=== PATIENT | male | born 1930 | race African-American/Black ===

== ENCOUNTER 2016-07-15 10:26 | Emergency (ER) | payer MEDICARE ==
[~2016-07-15] VITALS: Ht 182.9 cm; Wt 72.6 kg
[~2016-07-15 10:26] MED LIST: AMLODIPINE BESYL5 MG ORAL; ASPIR 8181 MG ORAL; BENAZEPRIL HCL10 MG ORAL; CEPHALEXIN500 MG ORAL; SIMVASTATIN40 MG ORAL; TIMOPTIC 0.5%1 DRO1 BOTH EYES; TRUSOPT10 ML BOTH EYES; VICODIN 5-5001 EACH PO; [UNRECOGNIZED DRUG - OTHER] BOTH EYES
[2016-07-15] MEDS ORDERED: Acetaminophen 500mg (ES) tab PO ONE (11:15)
[2016-07-15 11:29] VITALS: BP 165/75
[2016-07-15 12:06] VITALS: BP 166/61
[2016-07-15] MEDS ORDERED: TYLENOL EXTRA500 MG ORAL (12:45)
[2016-07-15 12:50] VITALS: BP 166/61
--- NOTE | 2016-07-15 14:49 | Diagnostic Imaging Report ---
Indications:PAIN right elbow Technique: Three or 4 views of the right elbow Comparison: None Findings:There is a small olecranon spur. No acute fractures. No dislocations. No joint effusion. Impression:Negative
--- NOTE | 2016-07-15 14:55 | Emergency Room Report ---
History of Present Illness General Chief Complaint: Upper Extremity Injury Source: Patient Present Illness HPI 86-year-old male presents ED complaining of right elbow pain. States prior to one week ago he lifted some heavy furniture has felt pain in his arm since. Denies trauma to the elbow. Pain is throbbing, 5/10, worse with couple flexion. Nonradiating. No other aggravating or relieving factors. Denies any other injuries. Denies any other associated symptom Allergies: Coded Allergies: No Known Allergies (Unverified , 01/10/13) Patient History Past Medical History: HTN Past Surgical History: none Pertinent Family History: none Social History: Denies: alcohol use, drug use, smoking Immunizations: UTD Reviewed Nursing Documentation: PMH: Agreed, PSxH: Agreed Nursing Documentation-PMH Hx Cardiac Problems: Yes - Hyperlipidemia Hx Hypertension: Yes Hx Cancer: No Hx Gastrointestinal Problems: No Hx Neurological Problems: No Review of Systems All Other Systems: negative except mentioned in HPI Physical Exam Vital Signs Date Time Temp Pulse Resp B/P Pulse Ox O2 Delivery O2 Flow Rate FiO2 07/15/16 10:36 98.1 51 16 193/80 100 Room Air Sp02 EP Interpretation: reviewed, normal General Appearance: no apparent distress, alert, GCS 15, non-toxic Head: normocephalic Eyes: bilateral eye PERRL, bilateral eye normal inspection ENT: normal ENT inspection Neck: normal inspection Respiratory: normal inspection Cardiovascular #1: normal inspection Gastrointestinal: normal inspection Rectal: deferred Genitourinary: no CVA tenderness Musculoskeletal: normal range of motion, tender - R lateral epicondyle. Neurologic: normal inspection Psychiatric: normal inspection Skin: normal inspection Lymphatic: normal inspection Medical Decision Making Diagnostic Impression: Primary Impression: Tennis elbow Qualified Codes: M77.11 - Lateral epicondylitis, right elbow ER Course Hospital Course 86-year-old M presents to ED complaining of R elbow pain s/p lifting heavy objects Differential diagnoses include: Fracture, dislocation, sprain, contusion Clinical course Patient placed on stretcher. After initial history and physical, I ordered pain medications and Xrays of R elbow Xrays prelim read shows no acute fracture/dislocation. consistent with tennis elbow Diagnosis - tennis elbow Stable and discharged to home with prescription for tylenol. apply ice, keep elevated. weight bear as tolerated. Followup with PMD. Return to ED if symptoms recur or worsen Other X-Ray Diagnostic Results Other X-Ray Diagnostic Results : X-Ray Ordered: R elbow EP Interpretation: Yes Findings: no fractures, no dislocation, no soft tissue swelling Number of Views: 3 Last Vital Signs Date Time Temp Pulse Resp B/P Pulse Ox O2 Delivery O2 Flow Rate FiO2 07/15/16 12:50 98.1 78 16 166/61 98 Room Air Status: improved Disposition: HOME, SELF-CARE Condition: Stable Scripts Acetaminophen* (TYLENOL EXTRA STRENGTH*) 500 Mg Tablet 500 MG ORAL Q8H Y for Prn Headache/Temp > 101, #30 TAB 0 Refills Prov: WADE NAM M.D. 07/15/16 Patient Instructions: Edwin Leon, [id number] WADE NAM M.D. Jul 15, 2016 14:54
== END 2016-07-15 12:50 | disposition home or self-care (01) ==
LOC: EMR 11:09
DX: M77.11 Lateral epicondylitis, right elbow (principal); I10 Essential (primary) hypertension
CPT/HCPCS: 99283

== ENCOUNTER 2016-09-09 11:44 | Emergency (ER) | payer MEDICARE ==
[~2016-09-09] VITALS: Ht 182.9 cm; Wt 72.6 kg
[~2016-09-09 11:44] MED LIST changes: +TYLENOL EXTRA500 MG ORAL
[2016-09-09 11:50] VITALS: BP 159/76
[2016-09-09] MEDS ORDERED: TRAMADOL HCL50 MG ORAL (12:18)
[2016-09-09] MEDS ORDERED: IBUPROFEN600 MG ORAL (12:18)
--- NOTE | 2016-09-09 12:25 | Emergency Room Report ---
History of Present Illness General Chief Complaint: Pain Present Illness HPI The patient is an 86-year-old male presenting for right arm and shoulder pain which began 2 months prior. The patient was seen in this emergency department for the same complaint and diagnosed with tennis elbow. The patient states pain has persisted and is worse with movements such as arm flexion. The patient states that he occasionally lifts weights which makes it worse. Pain is described as a 10 out of 10 dull ache to the bicep and shoulder. Pain does not radiate from these areas. The patient denies any known injury to this area. The patient denies other symptoms including N, V, F, chills, numbness/ tingling Allergies: Coded Allergies: No Known Allergies (Unverified , 01/10/13) Patient History Past Medical History: see triage record Pertinent Family History: none Reviewed Nursing Documentation: PMH: Agreed, PSxH: Agreed Nursing Documentation-PMH Hx Cardiac Problems: Yes - Hyperlipidemia Hx Hypertension: Yes Hx Cancer: No Hx Gastrointestinal Problems: No Hx Neurological Problems: No Review of Systems All Other Systems: negative except mentioned in HPI Physical Exam Vital Signs Date Time Temp Pulse Resp B/P Pulse Ox O2 Delivery O2 Flow Rate FiO2 09/09/16 11:50 97.9 77 20 159/76 100 Room Air Sp02 EP Interpretation: reviewed, normal General Appearance: no apparent distress, alert, GCS 15, non-toxic Head: normocephalic, atraumatic Eyes: bilateral eye PERRL, bilateral eye normal inspection ENT: hearing grossly normal, normal pharynx, no angioedema, normal voice Neck: full range of motion, supple/symm/no masses Musculoskeletal: digits/nails normal, gait/station normal, normal range of motion, tender - TTP over R proximal bicep Neurologic: alert, oriented x3, responsive, motor strength/tone normal, sensory intact, normal gait, speech normal Psychiatric: judgement/insight normal, memory normal, mood/affect normal, no suicidal/homicidal ideation Skin: normal color, no rash, warm/dry, well hydrated Lymphatic: no adenopathy Procedures Splinting Splinting : Consent: Verbal Location: R arm Pre-Made Type: sling Pre-Proc Neuro Vasc Exam: normal Post-Proc Neuro Vasc Exam: normal Patient Tolerated: Well Complications: None Medical Decision Making PA Attestation Dr. Atkinson is my supervising physician. Patient management was discussed with my supervising physician Diagnostic Impression: Primary Impression: Biceps tendinitis ER Course The patient is an 86-year-old male presenting for right arm pain Ddx considered include but not limited to sprain/strain, tendonitis, fracture, contusion Physical exam: The patient is initially hypertensive at all vitals are within normal limits at time of exam. No apparent distress Right arm: Full active range of motion at the elbow and shoulder. No obvious deformity. No edema. No ecchymosis. There is tenderness to palpation over the proximal bicep. There is noted pain with arm flexion against resistance The patient is given Motrin for pain A sling was placed for the right arm The patient will be discharged home with a prescription for Motrin and tramadol for extreme pain. The patient is advised he needs to followup with PMD. ER precautions are given Last Vital Signs Date Time Temp Pulse Resp B/P Pulse Ox O2 Delivery O2 Flow Rate FiO2 09/09/16 11:50 97.9 77 20 159/76 100 Room Air Status: improved Disposition: HOME, SELF-CARE Condition: Improved Scripts Tramadol Hcl* (ULTRAM*) 50 Mg Tablet 50 MG ORAL Q6H Y for For Pain, #8 TAB 0 Refills Prov: TADEO TESFAYE P.A. 09/09/16 Ibuprofen* (MOTRIN*) 600 Mg Tablet 600 MG ORAL Q8H Y for For Pain, #30 TAB 0 Refills Prov: TADEO TESFAYE P.A. 09/09/16 Patient Instructions: Bicipital Tendonitis Additional Instructions: I discussed my findings with the patient. All questions and concerns have been answered. Treatment and medication compliance have been addressed. I advised the patient that they need to follow up with PMD in 3-5 days. Return to ED if pain remains or worsens, numbness or tingling occurs, new rash is noticed, fever is noticed, or if needed for any reason. Patient verbalized understanding of discharge instructions. TADEO TESFAYE Sep 09, 2016 12:25
[2016-09-09] MEDS: traMADol 50mg tab ORAL ONE ×2 (12:36→12:49)
== END 2016-09-09 12:41 | disposition home or self-care (01) ==
LOC: EMR 12:20
DX: M75.21 Bicipital tendinitis, right shoulder (principal); I10 Essential (primary) hypertension; E78.5 Hyperlipidemia, unspecified
CPT/HCPCS: 29240; 99284

== ENCOUNTER 2017-06-07 14:01 | Emergency (ER) | payer MEDICARE ==
[~2017-06-07] VITALS: Ht 182.9 cm; Wt 71.7 kg
[~2017-06-07 14:01] MED LIST changes: +IBUPROFEN600 MG ORAL; +TRAMADOL HCL50 MG ORAL
[2017-06-07] MEDS ORDERED: OXYBUTYNIN CHLOR5 M2 PO (14:16)
[2017-06-07] MEDS ORDERED: DONEPEZIL HCL5 M2 ORAL (14:16)
[2017-06-07] MEDS ORDERED: FLONASE ALLERG9.9 ML NS (15:44)
[2017-06-07] MEDS ORDERED: ARTIFICIAL TEAR15 ML BOTH EYES (15:44)
[2017-06-07 15:50] VITALS: BP 162/72
--- NOTE | 2017-06-07 23:21 | Emergency Room Report ---
History of Present Illness General Chief Complaint: Eye Problems Source: Patient, Family Member Present Illness Allergies: Coded Allergies: No Known Allergies (Unverified , 01/10/13) Patient History Past Medical History: see triage record Pertinent Family History: none Nursing Documentation-PMH Hx Cardiac Problems: Yes - Hyperlipidemia Hx Hypertension: Yes Hx Cancer: No Hx Gastrointestinal Problems: No Physical Exam Vital Signs Date Time Temp Pulse Resp B/P (MAP) Pulse Ox O2 Delivery O2 Flow Rate FiO2 06/07/17 14:08 98.1 62 16 150/72 99 Room Air Medical Decision Making PA Attestation Dr. Glez is my supervising physician. Patient management was discussed with my supervising physician Diagnostic Impression: Primary Impression: Environmental allergies ER Course Differential diagnoses considered but not limited to allergic conjunctivitis, bacterial conjunctivitis, viral conjunctivitis, blepharitis, hordeolum CT/MRI/US Diagnostic Results CT/MRI/US Diagnostic Results #1: Imaging Test Ordered: CT facial bones Impression No acute findings CT/MRI/US Diagnostic Results #2: Imaging Test Ordered: CT head Impression No acute findings Last Vital Signs Date Time Temp Pulse Resp B/P (MAP) Pulse Ox O2 Delivery O2 Flow Rate FiO2 06/07/17 15:50 62 16 162/72 100 Room Air 06/07/17 15:50 97.6 Status: improved Disposition: HOME, SELF-CARE Condition: Improved Scripts Dextran 70/Hypromellose (ARTIFICIAL TEARS EYE DROPS*) 15 Ml Drops 1 DROP BOTH EYES PRN, #15 ML 0 Refills Prov: TADEO TESFAYE P.A. 06/07/17 Fluticasone Propionate (Flonase Allergy Relief) 9.9 Ml [place].susp 1 SPRAYS NS DAILY, #10 ML Prov: UNAANKODAKY P.A. 06/07/17 Patient Instructions: Allergies Additional Instructions: I discussed my findings with the patient. All questions and concerns have been answered. Treatment and medication compliance have been addressed. I advised the patient that they need to follow up with PMD in 3-5 days. Return to ED if symptoms worsen, new symptoms arise, or if needed for any reason. Patient verbalized understanding of discharge instructions. Please followup with your eye doctor as soon as possible for further treatment and evaluation TADEO TESFAYE Jun 07, 2017 23:21
--- NOTE | 2017-06-08 08:33 | Diagnostic Imaging Report ---
Indication: Pain Technique: Continuous helical CT scanning of the head was performed utilizing automated exposure control without intravenous contrast material. Axial and coronal reconstructions were obtained. Comparison: 11/18/2006 CT dose: Total DLP 2003.91 mGycm; CTDI vol 70.38,28.19 mGy Findings: There is no acute intracranial hemorrhage, mass effect or cortical edema. The ventricles, cisterns and sulci are mildly prominent consistent with atrophy. Periventricular hypoattenuation is seen, a nonspecific finding. The posterior fossa and fourth ventricle are unremarkable. Visualized mastoid air cells and paranasal sinuses are unremarkable. No focal lesions of the bony calvarium or soft tissues of the scalp are seen. Question prior cataract surgery bilaterally. Orbits and globes are grossly unremarkable. Impression: No evidence of acute intracranial hemorrhage, mass effect or cortical edema. MRI may be obtained for more sensitive evaluation as clinically indicated. Mild atrophy and nonspecific periventricular hypoattenuation suggestive of chronic ischemic microvascular changes. This corresponds with the [facility] preliminary report. The CT scanner at [facility] is accredited by the [employer] and the scans are performed using protocols designed to limit radiation exposure to as low as reasonably achievable to attain images of sufficient resolution adequate for diagnostic evaluation.
--- NOTE | 2017-06-08 08:39 | Diagnostic Imaging Report ---
Indication: Pain Technique: CT maxillofacial was performed utilizing automated exposure control without intravenous contrast material. Axial and coronal images were generated. CT dose: Total DLP 2003.91 mGycm; CTDI vol 70.38,28.19 mGy Comparison: None Findings: No acute fracture is identified. The mandible, midface and nasal bones are intact. There is evidence of likely cataract surgery bilaterally. Globes are intact. Orbits are unremarkable. No orbital or periorbital fluid collections or inflammatory change. Paranasal sinuses and mastoid air cells are clear. The nasal septum is midline. No evidence of hemorrhage or large territorial infarct in the visualized portions of the brain. Atherosclerotic calcifications noted in the cavernous portions of the bilateral internal carotid arteries as well as within the intracranial portions of the bilateral vertebral arteries. Degenerative changes of the cervical spine partially visualized. Impression: No acute facial fracture. This corresponds with the [facility] preliminary report. The CT scanner at [facility] is accredited by the [employer] and the scans are performed using protocols designed to limit radiation exposure to as low as reasonably achievable to attain images of sufficient resolution adequate for diagnostic evaluation.
== END 2017-06-07 15:50 | disposition home or self-care (01) ==
LOC: EMR 14:30
DX: T78.49XA Other allergy, initial encounter (principal); I10 Essential (primary) hypertension; E78.5 Hyperlipidemia, unspecified; X58.XXXA Exposure to other specified factors, initial encounter
CPT/HCPCS: 70450; 70486; 99284

== ENCOUNTER 2017-06-12 14:59 | Emergency (ER) | payer MEDICARE ==
[~2017-06-12] VITALS: Ht 182.9 cm; Wt 70.3 kg
[~2017-06-12 14:59] MED LIST changes: +ARTIFICIAL TEAR15 ML BOTH EYES; +DONEPEZIL HCL5 M2 ORAL; +FLONASE ALLERG9.9 ML NS; +OXYBUTYNIN CHLOR5 M2 PO
[2017-06-12] MEDS ORDERED: Sodium Chloride 500ML 500 ML IV ONE (15:20)
[2017-06-12 15:30] VITALS: BP 178/77
[2017-06-12 16:03] LABS: HEMATOCRIT 39.6 % (42.0-52.0); HEMOGLOBIN 12.4 G/DL (14.2-18.0); MEAN CORPUSCULAR VOLUME 96 FL (80-99); PLATELET COUNT 113 K/UL (150-450); RED BLOOD COUNT 4.13 M/UL (4.70-6.10); RED CELL DISTRIBUTION WIDTH 11.7 % (11.6-14.8)
[2017-06-12 16:06] LABS: ANION GAP 5 mmol/L (5-15); BLOOD UREA NITROGEN 13 mg/dL (7-18); CARBON DIOXIDE 31 MMOL/L (21-32); CHLORIDE 108 MMOL/L (98-107); CREATININE 1.1 MG/DL (0.55-1.30); POTASSIUM 4.4 MMOL/L (3.5-5.1); SODIUM 144 MMOL/L (136-145)
--- NOTE | 2017-06-12 16:16 | Diagnostic Imaging Report ---
Indications: Syncope Technique: Spiral acquisitions obtained through the brain. Angled axial and coronal 5 x 5 mm slices were reconstructed. Total dose length product 1354.97 mGycm. CTDI vol(s) 70.38 mGy. Dose reduction achieved using automated exposure control Comparison: 06/07/2017 Findings: There is a left frontoparietal convexity subdural hematoma which is isoattenuating or perhaps slightly hypoattenuating to normal white matter. No elements of acute blood are demonstrated. This measures approximate 7 mm in thickness. In retrospect, also evident previously, not significantly changed. This results in mild and or displacement of the adjacent cortex and minimal attenuation of the adjacent sulci. There is about 1 mm of midline shift which if real is likewise unchanged no associated calvarial abnormality. No definite significant extracranial soft tissue abnormality is evident. No other evidence of acute intracranial bleed or edema. There is mild age-related enlargement of the ventricles and extra axial CSF spaces. There is mild periventricular deep white matter low-attenuation consistent with chronic ischemic change. 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 The sinuses are clear. The mastoids are clear Impression: Positive for 7 mm thick left frontoparietal convexity subdural hematoma. This is isoattenuating to franco matter, indicating that it is likely subacute. In retrospect, evident on previous study of 06/07/2017, and unchanged since then. This results in only mild mass effect No new intracranial bleed or mass effect Chronic and age-related changes, as described Critical value finding phoned to Dr. Escoto in the emergency room at the time of interpretation Notification of the discrepancy on the previous exam report was provided to [facility] teleradiology service The CT scanner at [facility] is accredited by the [employer] and the scans are performed using protocols designed to limit radiation exposure to as low as reasonably achievable to attain images of sufficient resolution adequate for diagnostic evaluation.
[2017-06-12 16:17] LABS: WHITE BLOOD COUNT 1.8 K/UL (4.8-10.8)
[2017-06-12 16:19] LABS: ALANINE AMINOTRANSFERASE 16 U/L (12-78); ALBUMIN 3.7 G/DL (3.4-5.0); ALBUMIN/GLOBULIN RATIO 1.3 (1.0-2.7); ALKALINE PHOSPHATASE 53 U/L (46-116); ASPARTATE AMINO TRANSFERASE 17 U/L (15-37); BILIRUBIN,TOTAL 0.7 MG/DL (0.2-1.0); CREATINE KINASE 104 U/L (26-308)
--- NOTE | 2017-06-12 16:50 | Diagnostic Imaging Report ---
Indication: Reason For Exam: SYNCOPE Technique: One view of the chest Comparison: 11/18/2006 Findings: Better inspiration currently. Lungs and pleural spaces are clear. The heart size is normal. Aorta is tortuous and calcified. There are degenerative changes of the thoracic spine Impression: No acute process
[2017-06-12 17:07] LABS: APPEARANCE,URINE CLEAR; BILIRUBIN, URINE NEGATIVE (NEGATIVE); COLOR,URINE PALE YELLOW; GLUCOSE, URINE (UA) NEGATIVE (NEGATIVE); KETONES,URINE NEGATIVE (NEGATIVE); LEUKOCYTE ESTERASE ,URINE NEGATIVE (NEGATIVE); NITRITE,URINE NEGATIVE (NEGATIVE); PH,URINE 6.5 (4.5-8.0); PROTEIN,URINE NEGATIVE (NEGATIVE); UROBILINOGEN,URINE NORMAL MG/DL (0.0-1.0)
[2017-06-12 17:40] VITALS: BP 191/73
[2017-06-12] MEDS ORDERED: LATANOPROST2.5 ML BOTH EYES (18:04)
[2017-06-12] MEDS ORDERED: LOVASTATIN20 MG ORAL (18:08)
[2017-06-12] MEDS ORDERED: ZYRTEC10 MG ORAL (18:08)
[2017-06-12] MEDS ORDERED: COSOPT EYE DROP10 M1 OP (18:10)
[2017-06-12] MEDS ORDERED: HYDROXYZINE HCL10 M1 PO (18:11)
[2017-06-12] MEDS ORDERED: BENAZEPRIL HCL5 MG ORAL (18:19)
[2017-06-12] MEDS ORDERED: OMEPRAZOLE20 M2 ORAL (18:27)
[2017-06-12] MEDS ORDERED: BRIMONIDINE TART5 ML BOTH EYES (18:29)
--- NOTE | 2017-06-12 19:18 | Emergency Room Report ---
History of Present Illness General Chief Complaint: Dizziness Source: Patient, Medical Record Present Illness HPI 87-year-old male presents ED status post syncopal episode. Daughter at bedside states that patient had syncopal episode today but did not hit his head. Patient states he also had syncopal episode yesterday. At this time patient that he feels okay. Patient states that he had a "head injury" in April. doesnt know the diagnosis. Was seen also by an neurologist and had additional studies done. Patient states he also had a CT done last week but does not know the results. Denies any headache. Denies any blurry vision nausea or vomiting. Denies any chest pain or shortness of breath. No other aggravating relieving factors. Denies any other associated symptoms Allergies: Coded Allergies: No Known Allergies (Unverified , 01/10/13) Patient History Past Medical History: HTN, other - subdural hematoma Past Surgical History: none Pertinent Family History: none Social History: Denies: smoking, alcohol use, drug use Immunizations: UTD Reviewed Nursing Documentation: PMH: Agreed, PSxH: Agreed Nursing Documentation-PMH Past Medical History: No History, Except For Hx Cardiac Problems: Yes - Hyperlipidemia Hx Hypertension: Yes Hx Cancer: No Hx Gastrointestinal Problems: No Review of Systems All Other Systems: negative except mentioned in HPI Physical Exam Vital Signs Date Time Temp Pulse Resp B/P (MAP) Pulse Ox O2 Delivery O2 Flow Rate FiO2 06/12/17 15:09 97.3 62 18 144/68 99 Room Air Sp02 EP Interpretation: reviewed, normal General Appearance: no apparent distress, alert, GCS 15, non-toxic Head: normocephalic, atraumatic Eyes: bilateral eye normal inspection, bilateral eye PERRL ENT: hearing grossly normal, normal pharynx, no angioedema, normal voice Neck: full range of motion, supple/symm/no masses Respiratory: chest non-tender, lungs clear, normal breath sounds, speaking full sentences Cardiovascular #1: regular rate, rhythm, no edema Cardiovascular #2: 2+ carotid (R), 2+ carotid (L), 2+ radial (R), 2+ radial (L) , 2+ dorsalis pedis (R), 2+ dorsalis pedis (L) Gastrointestinal: normal bowel sounds, non tender, soft, non-distended, no guarding, no rebound Rectal: deferred Genitourinary: normal inspection, no CVA tenderness Musculoskeletal: back normal, gait/station normal, normal range of motion, non- tender Neurologic: alert, oriented x3, responsive, motor strength/tone normal, sensory intact, speech normal Psychiatric: judgement/insight normal, memory normal, mood/affect normal, no suicidal/homicidal ideation Reflexes: 3+ bicep (R), 3+ bicep (L), 3+ tricep (R), 3+ tricep (L), 3+ knee (R) , 3+ knee (L) Skin: normal color, no rash, warm/dry, well hydrated Lymphatic: no adenopathy Medical Decision Making Diagnostic Impression: Primary Impression: Syncope Qualified Codes: R55 - Syncope and collapse Additional Impressions: PVC's (premature ventricular contractions) Chronic subdural hematoma ER Course Hospital Course 87-year-old M presents ED s/p syncopal episode. Differential diagnoses include: UT/unstable angina, arrythmia, dehydration, CVA/ TIA Clinical course Patient placed on stretcher. on cardiac rehabilitation specialist. After initial history and physical I ordered labs, EKG, chest x-ray, IVFs, CT Brain labs reviewed- signficant leukopenia, hemoglobin/hematocrit ok, electrolytes okay, troponins 0.033 EKG-sinus bradycardia, PVCs noted Chest x-ray- no acute process CT brain-left frontal chronic subdural hematoma I discussed findings with the patient and family. The family recalled that patient did have a subdural hematoma from a head injury in April. However not noted on initial CT done in ER. Patient followup with neurology as outpatient because of repeat syncopal episodes in MRI showed the chronic subdural Patient had CT done here on 06/07 which also showed a chronic subdural which is unchanged today I discussed findings with neurosurgery at [facility]. Given no focal neurological deficits and the subdural is chronic no reason for transfer or surgical intervention However given repeat syncopal episodes with PVCs on EKG I believe patient should be admitted because of insurance patient will be transferred I. I feel this is a highly complex case requiring extensive working including EKG/Rhythm strip, Xray/CT/US, Blood/urine lab work, repeat exams while in ED, and administration of strong opiates/narcotics for pain control, admission to hospital or close patient follow up. Diagnosis - syncope, PVCs, chronic subdural hematoma transferred in serious condition Labs Test 06/12/17 15:40 06/12/17 16:24 White Blood Count 1.8 K/UL (4.8-10.8) Red Blood Count 4.13 M/UL (4.70-6.10) Hemoglobin 12.4 G/DL (14.2-18.0) Hematocrit 39.6 % (42.0-52.0) Mean Corpuscular Volume 96 FL (80-99) Mean Corpuscular Hemoglobin 30.1 PG (27.0-31.0) Mean Corpuscular Hemoglobin Concent 31.4 G/DL (32.0-36.0) Red Cell Distribution Width 11.7 % (11.6-14.8) Platelet Count 113 K/UL (150-450) Mean Platelet Volume 7.4 FL (6.5-10.1) Neutrophils (%) (Auto) % (45.0-75.0) Lymphocytes (%) (Auto) % (20.0-45.0) Monocytes (%) (Auto) % (1.0-10.0) Eosinophils (%) (Auto) % (0.0-3.0) Basophils (%) (Auto) % (0.0-2.0) Differential Total Cells Counted 100 Neutrophils % (Manual) 34 % (45-75) Lymphocytes % (Manual) 47 % (20-45) Monocytes % (Manual) 14 % (1-10) Eosinophils % (Manual) 1 % (0-3) Basophils % (Manual) 2 % (0-2) Band Neutrophils 2 % (0-8) Platelet Estimate Decreased Platelet Morphology Normal Hypochromasia 1+ Anisocytosis 1+ Sodium Level 144 MMOL/L (136-145) Potassium Level 4.4 MMOL/L (3.5-5.1) Chloride Level 108 MMOL/L (98-107) Carbon Dioxide Level 31 MMOL/L (21-32) Anion Gap 5 mmol/L (5-15) Blood Urea Nitrogen 13 mg/dL (7-18) Creatinine 1.1 MG/DL (0.55-1.30) Estimat Glomerular Filtration Rate mL/min (>60) Glucose Level 91 MG/DL (74-106) Calcium Level 8.0 MG/DL (8.5-10.1) Total Bilirubin 0.7 MG/DL (0.2-1.0) Aspartate Amino Transf (AST/SGOT) 17 U/L (15-37) Alanine Aminotransferase (ALT/SGPT) 16 U/L (12-78) Alkaline Phosphatase 53 U/L (46-116) Total Creatine Kinase 104 U/L (26-308) Creatine Kinase MB 1.0 NG/ML (0.0-3.6) Creatine Kinase MB Relative Index 0.9 Troponin I 0.033 ng/mL (0.000-0.056) Pro-B-Type Natriuretic Peptide 663 pg/mL (0-125) Total Protein 6.6 G/DL (6.4-8.2) Albumin 3.7 G/DL (3.4-5.0) Globulin 2.9 g/dL Albumin/Globulin Ratio 1.3 (1.0-2.7) Urine Color Pale yellow Urine Appearance Clear Urine pH 6.5 (4.5-8.0) Urine Specific [place] 1.005 (1.005-1.035) Urine Protein Negative (NEGATIVE) Urine Glucose (UA) Negative (NEGATIVE) Urine Ketones Negative (NEGATIVE) Urine Occult Blood Negative (NEGATIVE) Urine Nitrite Negative (NEGATIVE) Urine Bilirubin Negative (NEGATIVE) Urine Urobilinogen Normal MG/DL (0.0-1.0) Urine Leukocyte Esterase Negative (NEGATIVE) EKG Diagnostic Results Rate: bradycardiac Rhythm: NSR ST Segments: other - PVCs ASA given to the pt in ED: No Rhythm Strip Diag. Results EP Interpretation: yes Rhythm: NSR, no ectopy Chest X-Ray Diagnostic Results Chest X-Ray Diagnostic Results : Chest X-Ray Ordered: Yes # of Views/Limited/Complete: 1 View Indication: Other - syncope EP Interpretation: Yes Interpretation: no consolidation, no effusion, no pneumothorax, no acute cardiopulmonary disease Impression: No acute disease Electronically Signed by: Electronically signed by Samuel Escoto MD CT/MRI/US Diagnostic Results CT/MRI/US Diagnostic Results : Imaging Test Ordered: CT head Impression chronic L frontal subdural hematoma Last Vital Signs Date Time Temp Pulse Resp B/P (MAP) Pulse Ox O2 Delivery O2 Flow Rate FiO2 06/12/17 17:54 191/73 06/12/17 15:30 97.3 18 99 Room Air 12/28/17 15:09 62 Status: improved Disposition: XFER SHT-TRM HOSP Condition: Serious Referrals: [facility],REFERRING (PCP) SAMUEL ESCOTO M.D. Jun 12, 2017 19:18
[2017-06-12 19:40] VITALS: BP 145/49
[2017-06-12 20:47] VITALS: BP 150/52
[2017-06-12 23:30] VITALS: BP 159/66
[2017-06-13 02:03] VITALS: BP 173/68
[2017-06-13 02:40] VITALS: BP 173/68
--- NOTE | 2017-06-24 00:12 | Cardiology Report ---
APPROVED REPORT EKG Measurement Heart [id number] OR [id number] Sinus bradycardia with premature supraventricular complexes Right bundle branch block Abnormal ECG
== END 2017-06-13 02:40 | disposition short-term general hospital (02) ==
LOC: EMR 15:26
DX: R55 Syncope and collapse (principal); I49.3 Ventricular premature depolarization; I62.00 Nontraumatic subdural hemorrhage, unspecified; I10 Essential (primary) hypertension; E78.5 Hyperlipidemia, unspecified
CPT/HCPCS: 36415; 70450; 71010; 80053; 81003; 82550; 82553; 83880; 84484; 85007; 85025; 93005; 96361; 96374; 99285; J0360; J7040

== ENCOUNTER 2018-04-02 19:20 | Emergency (ER) | payer MEDICARE ==
[~2018-04-02] VITALS: Ht 185.4 cm; Wt 71.2 kg
[~2018-04-02 19:20] MED LIST changes: +BENAZEPRIL HCL5 MG ORAL; +BRIMONIDINE TART5 ML BOTH EYES; +COSOPT EYE DROP10 M1 OP; +HYDROXYZINE HCL10 M1 PO; +LATANOPROST2.5 ML BOTH EYES; +LOVASTATIN20 MG ORAL; +OMEPRAZOLE20 M2 ORAL; +ZYRTEC10 MG ORAL
[2018-04-02] MEDS ORDERED: NAMENDA5 MG ORAL (19:49)
[2018-04-02] MEDS ORDERED: QUETIAPINE FUMA25 MG ORAL (19:49)
[2018-04-02 20:00] VITALS: BP 153/86
[2018-04-02 20:32] LABS: BASOPHILS % (AUTO) 0.9 % (0.0-2.0); HEMATOCRIT 34.5 % (42.0-52.0); HEMOGLOBIN 11.2 G/DL (14.2-18.0); LYMPHOCYTES % (AUTO) 20.6 % (20.0-45.0); MEAN CORPUSCULAR VOLUME 95 FL (80-99); MONOCYTES % (AUTO) 14.3 % (1.0-10.0); NEUTROPHILS % (AUTO) 63.2 % (45.0-75.0); PLATELET COUNT 106 K/UL (150-450); RED BLOOD COUNT 3.64 M/UL (4.70-6.10); RED CELL DISTRIBUTION WIDTH 12.3 % (11.6-14.8); WHITE BLOOD COUNT 3.7 K/UL (4.8-10.8)
[2018-04-02 20:35] LABS: ANION GAP 9 mmol/L (5-15); BLOOD UREA NITROGEN 18 mg/dL (7-18); CALCIUM 8.8 MG/DL (8.5-10.1); CARBON DIOXIDE 27 MMOL/L (21-32); CHLORIDE 105 MMOL/L (98-107); CREATININE 1.3 MG/DL (0.55-1.30); POTASSIUM 3.8 MMOL/L (3.5-5.1); SODIUM 140 MMOL/L (136-145)
[2018-04-02 20:39] LABS: ALANINE AMINOTRANSFERASE 15 U/L (12-78); ALBUMIN 3.4 G/DL (3.4-5.0); ALKALINE PHOSPHATASE 61 U/L (46-116); ASPARTATE AMINO TRANSFERASE 28 U/L (15-37); BILIRUBIN,TOTAL 0.5 MG/DL (0.2-1.0)
[2018-04-02] MEDS ORDERED: RANITIDINE HCL150 MG ORAL (20:52)
[2018-04-02] MEDS ORDERED: ONDANSETRON ODT4 MG BC (20:52)
[2018-04-02 20:57] VITALS: BP 153/86
--- NOTE | 2018-04-04 15:30 | Emergency Room Report ---
History of Present Illness General Chief Complaint: General Complaint Source: Patient Present Illness HPI 87-year-old male presents ED for evaluation. complaining of diarrhea 2 days. Denies any abdominal pain. Denies any vomiting. Denies fevers or chills. Notes multiple episodes of watery loose stools. Denies sick contacts or recent travel. Denies recent antibiotic use. No other aggravating relieving factors. Denies any other associated symptoms Allergies: Coded Allergies: No Known Allergies (Unverified , 01/10/13) Patient History Past Medical History: HTN Past Surgical History: none Pertinent Family History: none Social History: Denies: smoking, alcohol use, drug use Immunizations: UTD Reviewed Nursing Documentation: PMH: Agreed; PSxH: Agreed Nursing Documentation-PMH Hx Cardiac Problems: Yes - Hyperlipidemia Hx Hypertension: Yes Hx Cancer: No Hx Gastrointestinal Problems: No Review of Systems All Other Systems: negative except mentioned in HPI Physical Exam Vital Signs Date Time Temp Pulse Resp B/P (MAP) Pulse Ox O2 Delivery O2 Flow Rate FiO2 04/02/18 19:34 99.2 56 18 167/70 98 Room Air 99.1 Sp02 EP Interpretation: reviewed, normal General Appearance: no apparent distress, alert, GCS 15, non-toxic Head: normocephalic, atraumatic Eyes: bilateral eye normal inspection, bilateral eye PERRL ENT: hearing grossly normal, normal pharynx, no angioedema, normal voice Neck: full range of motion, supple/symm/no masses Respiratory: chest non-tender, lungs clear, normal breath sounds, speaking full sentences Cardiovascular #1: regular rate, rhythm, no edema Cardiovascular #2: 2+ carotid (R), 2+ carotid (L), 2+ radial (R), 2+ radial (L) , 2+ dorsalis pedis (R), 2+ dorsalis pedis (L) Gastrointestinal: normal bowel sounds, non tender, soft, non-distended, no guarding, no rebound Rectal: deferred Genitourinary: normal inspection, no CVA tenderness Musculoskeletal: back normal, gait/station normal, normal range of motion, non- tender Neurologic: alert, oriented x3, responsive, motor strength/tone normal, sensory intact, speech normal Psychiatric: judgement/insight normal, memory normal, mood/affect normal, no suicidal/homicidal ideation Reflexes: 3+ bicep (R), 3+ bicep (L), 3+ tricep (R), 3+ tricep (L), 3+ knee (R) , 3+ knee (L) Skin: normal color, no rash, warm/dry, well hydrated Lymphatic: no adenopathy Medical Decision Making Diagnostic Impression: Primary Impression: Gastroenteritis ER Course Hospital Course 87-year-old F presents to ED with diarrhea x 2 days differential diagnosis: gastritis, SBO, cholecystits, gastroenteritis Clinical course Patient placed on stretcher. On filing writer. After initial history and physical I ordered labs, IV fluids Labs - no leukocytosis, electrolytes ok, LFTs normal Discussed findings with patient, family. Gastroenteritis. Viral course which is likely self-limited. Vital stable. No signs of dehydration. Patient given easily tolerate oral intake. Safe for discharge or close outpatient follow-up I feel this is a highly complex case requiring extensive working including EKG/ Rhythm strip, Xray/CT/US, Blood/urine lab work, repeat exams while in ED, and administration of strong opiates/narcotics for pain control, admission to hospital or close patient follow up. Diagnosis - gastroenteritis Stable and discharged to home with prescriptions for zofran, zantac. Followup with PMD. Return to ED if symptoms recur or worsen Labs Test 04/02/18 19:46 White Blood Count 3.7 K/UL (4.8-10.8) Red Blood Count 3.64 M/UL (4.70-6.10) Hemoglobin 11.2 G/DL (14.2-18.0) Hematocrit 34.5 % (42.0-52.0) Mean Corpuscular Volume 95 FL (80-99) Mean Corpuscular Hemoglobin 30.8 PG (27.0-31.0) Mean Corpuscular Hemoglobin Concent 32.5 G/DL (32.0-36.0) Red Cell Distribution Width 12.3 % (11.6-14.8) Platelet Count 106 K/UL (150-450) Mean Platelet Volume 8.0 FL (6.5-10.1) Neutrophils (%) (Auto) 63.2 % (45.0-75.0) Lymphocytes (%) (Auto) 20.6 % (20.0-45.0) Monocytes (%) (Auto) 14.3 % (1.0-10.0) Eosinophils (%) (Auto) 1.0 % (0.0-3.0) Basophils (%) (Auto) 0.9 % (0.0-2.0) Sodium Level 140 MMOL/L (136-145) Potassium Level 3.8 MMOL/L (3.5-5.1) Chloride Level 105 MMOL/L (98-107) Carbon Dioxide Level 27 MMOL/L (21-32) Anion Gap 9 mmol/L (5-15) Blood Urea Nitrogen 18 mg/dL (7-18) Creatinine 1.3 MG/DL (0.55-1.30) Estimat Glomerular Filtration Rate mL/min (>60) Glucose Level 123 MG/DL (74-106) Calcium Level 8.8 MG/DL (8.5-10.1) Total Bilirubin 0.5 MG/DL (0.2-1.0) Aspartate Amino Transf (AST/SGOT) 28 U/L (15-37) Alanine Aminotransferase (ALT/SGPT) 15 U/L (12-78) Alkaline Phosphatase 61 U/L (46-116) Total Protein 6.8 G/DL (6.4-8.2) Albumin 3.4 G/DL (3.4-5.0) Globulin 3.4 g/dL Albumin/Globulin Ratio 1.0 (1.0-2.7) Lipase 85 U/L (73-393) Last Vital Signs Date Time Temp Pulse Resp B/P (MAP) Pulse Ox O2 Delivery O2 Flow Rate FiO2 04/02/18 20:57 99.1 62 18 153/86 96 Room Air 99.1 Status: improved Disposition: HOME, SELF-CARE Condition: Stable Scripts Ranitidine Hcl* (ZANTAC*) 150 Mg Tablet 150 MG ORAL TWICE A DAY, #30 TAB Prov: Samuel Escoto MD 04/02/18 Ondansetron Odt* (ZOFRAN ODT*) 4 Mg Tab.rapdis 4 MG BC EVERY 6 HOURS PRN for Nausea & Vomiting, #10 TAB 0 Refills Prov: Samuel Escoto MD 04/02/18 Patient Instructions: Viral Gastroenteritis, Adult, [id number] Samuel Escoto MD Apr 04, 2018 15:30
== END 2018-04-02 20:57 | disposition home or self-care (01) ==
LOC: EMR 19:55
DX: K52.9 Noninfective gastroenteritis and colitis, unspecified (principal); I10 Essential (primary) hypertension; E78.5 Hyperlipidemia, unspecified
CPT/HCPCS: 36415; 80053; 83690; 85025; 99283

== ENCOUNTER 2019-05-03 12:42 | Emergency (ER) | payer MEDICARE ==
[~2019-05-03] VITALS: Ht 185.4 cm; Wt 79.4 kg
[~2019-05-03 12:42] MED LIST changes: +NAMENDA5 MG ORAL; +ONDANSETRON ODT4 MG BC; +QUETIAPINE FUMA25 MG ORAL; +RANITIDINE HCL150 MG ORAL
--- NOTE | 2019-05-03 12:45 | NUR ---
ED Nurse Note: Patient brought in by ambulance from home c/o generalized weakness since yesterday, grand daughter reports patient appeared to be weak and confused, deviating from his baseline. patient is alert awake x3, ambulatory without assistance at home, patient on a equipment monitor phototypesetting and placed on a hospital gown.
[2019-05-03 13:16] VITALS: BP 122/56
[2019-05-03 13:39] LABS: HEMOGLOBIN 10.7 G/DL (14.2-18.0); MEAN CORPUSCULAR VOLUME 95 FL (80-99); PLATELET COUNT 99 K/UL (150-450); RED BLOOD COUNT 3.35 M/UL (4.70-6.10); RED CELL DISTRIBUTION WIDTH 11.3 % (11.6-14.8)
[2019-05-03 13:44] LABS: ANION GAP 6 mmol/L (5-15); BLOOD UREA NITROGEN 17 mg/dL (7-18); CALCIUM 8.1 MG/DL (8.5-10.1); CARBON DIOXIDE 30 MMOL/L (21-32); CHLORIDE 103 MMOL/L (98-107); CREATININE 1.5 MG/DL (0.55-1.30); POTASSIUM 4.2 MMOL/L (3.5-5.1); SODIUM 139 MMOL/L (136-145)
[2019-05-03 13:53] LABS: ALANINE AMINOTRANSFERASE 15 U/L (12-78); ALBUMIN 3.4 G/DL (3.4-5.0); ALKALINE PHOSPHATASE 50 U/L (46-116); ASPARTATE AMINO TRANSFERASE 19 U/L (15-37); BILIRUBIN,TOTAL 0.9 MG/DL (0.2-1.0)
[2019-05-03] MEDS ORDERED: UNOBMED (14:00)
[2019-05-03 14:26] LABS: APPEARANCE,URINE CLEAR; BILIRUBIN, URINE NEGATIVE (NEGATIVE); GLUCOSE, URINE (UA) NEGATIVE (NEGATIVE); KETONES,URINE NEGATIVE (NEGATIVE); LEUKOCYTE ESTERASE ,URINE 1+ (NEGATIVE); NITRITE,URINE NEGATIVE (NEGATIVE); PH,URINE 6 (4.5-8.0); PROTEIN,URINE 3+ (NEGATIVE); UROBILINOGEN,URINE 4 MG/DL (0.0-1.0)
[2019-05-03 14:27] LABS: COLOR,URINE YELLOW
--- NOTE | 2019-05-03 14:28 | Emergency Room Report ---
History of Present Illness General Chief Complaint: Generalized Weakness Source: Patient, Family Member Present Illness HPI 89-year-old male presents the ED for evaluation. Brought in by EMS from home. Complaining of weakness x1 day. States has been having diarrhea since yesterday. Feels overall weak. Denies fevers or chills. Denies cough. Denies chest pain or shortness of breath. Denies sick contacts or recent travel. No other aggravating or relieving factors. Denies any other associated symptoms Allergies: Coded Allergies: No Known Allergies (Unverified , 01/10/13) Patient History Past Medical History: HTN Past Surgical History: none Pertinent Family History: none Social History: Denies: smoking, alcohol use, drug use Immunizations: UTD Reviewed Nursing Documentation: PMH: Agreed; PSxH: Agreed Nursing Documentation-PMH Past Medical History: No History, Except For Hx Hypertension: Yes Hx Cancer: No Hx Gastrointestinal Problems: No Review of Systems All Other Systems: negative except mentioned in HPI Physical Exam Vital Signs Date Time Temp Pulse Resp B/P (MAP) Pulse Ox O2 Delivery O2 Flow Rate FiO2 05/03/19 12:39 97.7 70 16 113/51 (71) 99 Room Air Sp02 EP Interpretation: reviewed, normal General Appearance: no apparent distress, alert, GCS 15, non-toxic, thin Head: normocephalic, atraumatic Eyes: bilateral eye normal inspection, bilateral eye PERRL ENT: hearing grossly normal, normal pharynx, no angioedema, normal voice Neck: full range of motion, supple/symm/no masses Respiratory: chest non-tender, lungs clear, normal breath sounds, speaking full sentences Cardiovascular #1: regular rate, rhythm, no edema Cardiovascular #2: 2+ carotid (R), 2+ carotid (L), 2+ radial (R), 2+ radial (L) , 2+ dorsalis pedis (R), 2+ dorsalis pedis (L) Gastrointestinal: normal bowel sounds, non tender, soft, non-distended, no guarding, no rebound Rectal: deferred Genitourinary: normal inspection, no CVA tenderness Musculoskeletal: back normal, gait/station normal, normal range of motion, non- tender Neurologic: alert, oriented x3, responsive, motor strength/tone normal, sensory intact, speech normal Psychiatric: judgement/insight normal, memory normal, mood/affect normal, no suicidal/homicidal ideation Reflexes: 3+ bicep (R), 3+ bicep (L), 3+ tricep (R), 3+ tricep (L), 3+ knee (R) , 3+ knee (L) Skin: other - see nursing skin notes Lymphatic: no adenopathy Medical Decision Making Diagnostic Impression: Primary Impression: Episode of generalized weakness Additional Impressions: Gastroenteritis Leukopenia Qualified Codes: D72.819 - Decreased white blood cell count, unspecified Renal insufficiency ER Course Hospital Course 89 yo M presents with weakness. diarrhea Differential diagnoses include: Pneumonia, UTI, sepsis, dehydration, TN/ unstable angina Clinical course Patient placed on stretcher. On accreditation manager with stable vitals during ED course. After initial history and physical, I ordered labs, IV fluids, EKG, chest x-ray, blood cultures, UA. Labs - BUN/Cr elevated, significant leukopenia, troponins 0.058, UA pending EKG - sinus arryhtmia, no acute ischemic changes interpreted by me CXR - no acute process patient denies chest pain. Abx given. given IVFS. discussed with patients credit department manager Dr Tabor. 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 This is his lowest WBC noted. We will defer on Neupogen at this point as patient does not have a fever. Because of insurance patient will be transferred I feel this is a highly complex case requiring extensive working including EKG/ Rhythm strip, Xray/CT/US, Blood/urine lab work, repeat exams while in ED, and administration of strong opiates/narcotics for pain control, admission to hospital or close patient follow up. Diagnosis -gastroenteritis, leukopenia, renal insufficiency, generalized weakness Transferred in serious condition Labs Test 05/03/19 12:55 05/03/19 13:24 White Blood Count 1.0 K/UL (4.8-10.8) Red Blood Count 3.35 M/UL (4.70-6.10) Hemoglobin 10.7 G/DL (14.2-18.0) Hematocrit 32.0 % (42.0-52.0) Mean Corpuscular Volume 95 FL (80-99) Mean Corpuscular Hemoglobin 32.0 PG (27.0-31.0) Mean Corpuscular Hemoglobin Concent 33.6 G/DL (32.0-36.0) Red Cell Distribution Width 11.3 % (11.6-14.8) Platelet Count 99 K/UL (150-450) Mean Platelet Volume 6.3 FL (6.5-10.1) Neutrophils (%) (Auto) % (45.0-75.0) Lymphocytes (%) (Auto) % (20.0-45.0) Monocytes (%) (Auto) % (1.0-10.0) Eosinophils (%) (Auto) % (0.0-3.0) Basophils (%) (Auto) % (0.0-2.0) Differential Total Cells Counted 100 Neutrophils % (Manual) 36 % (45-75) Lymphocytes % (Manual) 45 % (20-45) Monocytes % (Manual) 19 % (1-10) Eosinophils % (Manual) 0 % (0-3) Basophils % (Manual) 0 % (0-2) Band Neutrophils 0 % (0-8) Platelet Estimate Decreased Platelet Morphology Normal Hypochromasia 1+ Sodium Level 139 MMOL/L (136-145) Potassium Level 4.2 MMOL/L (3.5-5.1) Chloride Level 103 MMOL/L (98-107) Carbon Dioxide Level 30 MMOL/L (21-32) Anion Gap 6 mmol/L (5-15) Blood Urea Nitrogen 17 mg/dL (7-18) Creatinine 1.5 MG/DL (0.55-1.30) Estimat Glomerular Filtration Rate mL/min (>60) Glucose Level 124 MG/DL (74-106) Lactic Acid Level 1.80 mmol/L (0.4-2.0) Calcium Level 8.1 MG/DL (8.5-10.1) Total Bilirubin 0.9 MG/DL (0.2-1.0) Aspartate Amino Transf (AST/SGOT) 19 U/L (15-37) Alanine Aminotransferase (ALT/SGPT) 15 U/L (12-78) Alkaline Phosphatase 50 U/L (46-116) Troponin I 0.058 ng/mL (0.000-0.056) Pro-B-Type Natriuretic Peptide 5074 pg/mL (0-125) Total Protein 6.9 G/DL (6.4-8.2) Albumin 3.4 G/DL (3.4-5.0) Globulin 3.5 g/dL Albumin/Globulin Ratio 1.0 (1.0-2.7) EKG Diagnostic Results Rate: bradycardiac Rhythm: other - arryhtmia ST Segments: no acute changes ASA given to the pt in ED: No Rhythm Strip Diag. Results EP Interpretation: yes Rhythm: NSR, no PVC's, no ectopy Chest X-Ray Diagnostic Results Chest X-Ray Diagnostic Results : Chest X-Ray Ordered: Yes # of Views/Limited/Complete: 1 View Indication: Other EP Interpretation: Yes Interpretation: no consolidation, no effusion, no pneumothorax, no acute cardiopulmonary disease Impression: No acute disease Electronically Signed by: Electronically signed by Samuel Escoto MD Last Vital Signs Date Time Temp Pulse Resp B/P (MAP) Pulse Ox O2 Delivery O2 Flow Rate FiO2 05/03/19 13:26 62 21 Room Air 05/03/19 13:16 97.7 122/56 100 Status: improved Disposition: [facility]FER [facility] Condition: Serious Referrals: NON PHYSICIAN (PCP) Samuel Escoto MD May 03, 2019 14:28
--- NOTE | 2019-05-03 15:08 | Diagnostic Imaging Report ---
Indication: Reason For Exam: WEAK Technique: One view of the chest Comparison: none Findings: No acute infiltrates, effusions, or congestion. Tortuous calcified aorta. Normal heart size. Upper mediastinum unremarkable. Nipple shadow is seen at the right lung base. There is no significant interim change Impression: No acute process.
[2019-05-03 15:24] VITALS: BP 118/52
--- NOTE | 2019-05-03 16:19 | NUR ---
ED Nurse Note: report given to Khadijah KAUFMAN endorsed all plan of care to Khadijah KAUFMAN.
[2019-05-03 16:41] VITALS: BP 147/63
--- NOTE | 2019-05-03 16:41 | NUR ---
ED Nurse Note: patient is being transferred to [facility], with all of his belongings via ambulance.
--- NOTE | 2019-05-04 12:36 | Cardiology Report ---
APPROVED REPORT EKG Measurement Heart [id number] Sinus bradycardia with marked sinus arrhythmia Right bundle branch block Abnormal ECG
== END 2019-05-03 16:56 | disposition short-term general hospital (02) ==
LOC: EDBD 12:42 → EMR 13:10
DX: R53.1 Weakness (principal); K52.9 Noninfective gastroenteritis and colitis, unspecified; D72.819 Decreased white blood cell count, unspecified; N28.9 Disorder of kidney and ureter, unspecified; I10 Essential (primary) hypertension; I49.9 Cardiac arrhythmia, unspecified; R00.1 Bradycardia, unspecified
CPT/HCPCS: 36415; 71045; 80053; 81003; 83605; 83880; 84484; 85007; 85025; 86710; 87040; 93005; 96361; 96374; 99284; J0744

== ENCOUNTER 2019-08-16 18:36 | Emergency (ER) | payer MEDICARE ==
[~2019-08-16] VITALS: Ht 182.9 cm; Wt 65.3 kg
[~2019-08-16 18:36] MED LIST changes: +UNOBMED
[2019-08-16 19:15] VITALS: BP 142/70
[2019-08-16] MEDS ORDERED: Aspirin Baby 81mg ORAL ONE (19:45)
[2019-08-16 20:11] LABS: HEMATOCRIT 35.4 % (42.0-52.0); HEMOGLOBIN 11.2 G/DL (14.2-18.0); MEAN CORPUSCULAR VOLUME 101 FL (80-99); PLATELET COUNT 97 K/UL (150-450); RED CELL DISTRIBUTION WIDTH 13.2 % (11.6-14.8)
[2019-08-16 20:19] LABS: ANION GAP 12 mmol/L (5-15); BLOOD UREA NITROGEN 25 mg/dL (7-18); CALCIUM 8.9 MG/DL (8.5-10.1); CARBON DIOXIDE 26 MMOL/L (21-32); CHLORIDE 109 MMOL/L (98-107); CREATININE 1.2 MG/DL (0.55-1.30); POTASSIUM 4.3 MMOL/L (3.5-5.1); SODIUM 146 MMOL/L (136-145)
[2019-08-16 20:20] LABS: WHITE BLOOD COUNT 1.8 K/UL (4.8-10.8)
[2019-08-16 20:28] LABS: ALANINE AMINOTRANSFERASE 22 U/L (12-78); ALBUMIN 3.5 G/DL (3.4-5.0); ALBUMIN/GLOBULIN RATIO 1.1 (1.0-2.7); ALKALINE PHOSPHATASE 71 U/L (46-116); ASPARTATE AMINO TRANSFERASE 23 U/L (15-37); BILIRUBIN,TOTAL 0.4 MG/DL (0.2-1.0)
[2019-08-16 21:15] VITALS: BP 158/78
[2019-08-16] MEDS ORDERED: Nuedexta Capsule 20/10mg ORAL ONE (21:15)
--- NOTE | 2019-08-16 21:54 | Emergency Room Report ---
History of Present Illness General Chief Complaint: Chest Pain Source: Patient Present Illness HPI 89-year-old male presents after increased left-sided chest pain. Reports having intermittent episode over the past 1 day. Associated left-sided shoulder pain with initial difficulty moving his arm. He had prior history of dementia and is normally taking donepezil, Seroquel, and other medications. Had some prior history of cardiomyopathy in the past but does not take any medications regularly. He has some prior history of urinary disease. Patient had onset of symptoms during rest. He had been previously taking diuretics but does not take any diuretics currently. He denies any leg pain or swelling. He had been elevating his legs due to previous episodes of swelling in the past. Reports having increased pain with movement of his left shoulder as well as some increased difficulty raising his arm. Allergies: Coded Allergies: No Known Allergies (Unverified , 01/10/13) Patient History Past Medical History: see triage record Reviewed Nursing Documentation: PMH: Agreed; PSxH: Agreed Nursing Documentation-PMH Past Medical History: No History, Except For Hx Hypertension: Yes Hx Diabetes: Yes Hx Cancer: No Hx Gastrointestinal Problems: No Review of Systems All Other Systems: limited - Limited by poor historian Physical Exam Vital Signs Date Time Temp Pulse Resp B/P (MAP) Pulse Ox O2 Delivery O2 Flow Rate FiO2 08/16/19 18:42 98.1 75 16 142/70 (94) 98 Room Air Sp02 EP Interpretation: reviewed, normal General Appearance: normal inspection, no apparent distress, alert, GCS 15, non -toxic, Chronically Ill Head: atraumatic ENT: normal ENT inspection, hearing grossly normal, normal voice Neck: normal inspection, full range of motion, supple, no bony tend Respiratory: normal inspection, lungs clear, normal breath sounds, no respiratory distress, no retraction, no wheezing Cardiovascular #1: regular rate, rhythm, no edema Gastrointestinal: normal inspection, normal bowel sounds, non tender, soft, no guarding, no hernia Genitourinary: no CVA tenderness Musculoskeletal: normal inspection, back normal, normal range of motion Neurologic: alert, motor strength/tone normal, director of purchasing III-XII nml as tested, oriented x3, responsive, speech normal, normal inspection, other - Flat affect Psychiatric: normal inspection, judgement/insight normal, mood/affect normal Medical Decision Making Diagnostic Impression: Primary Impression: Chest pain Additional Impressions: CHF (congestive heart failure) Myelodysplasia (myelodysplastic syndrome) Leukopenia ER Course Patient presented for chest pain. Differential diagnosis include was not limited to myocardial infarction, CHF, musculoskeletal pain, arrhythmia among others. Because of complexity of patient's case laboratory tests and imaging studies were ordered. Patient's EKG interpreted by me showed normal sinus rhythm with right bundle branch block without acute ST or T wave changes. Patient was noted to have some prior history of CHF. He was given IV Lasix as well as aspirin. Patient's initial troponin was noted to be somewhat elevated. BNP was also noted to be somewhat elevated. Patient is somewhat poor historian and cannot actually recall when pain onset was.Patient will be endorsed to pending final disposition Labs Test 08/16/19 19:30 White Blood Count 1.8 K/UL (4.8-10.8) Red Blood Count 3.50 M/UL (4.70-6.10) Hemoglobin 11.2 G/DL (14.2-18.0) Hematocrit 35.4 % (42.0-52.0) Mean Corpuscular Volume 101 FL (80-99) Mean Corpuscular Hemoglobin 31.9 PG (27.0-31.0) Mean Corpuscular Hemoglobin Concent 31.6 G/DL (32.0-36.0) Red Cell Distribution Width 13.2 % (11.6-14.8) Platelet Count 97 K/UL (150-450) Mean Platelet Volume 7.4 FL (6.5-10.1) Neutrophils (%) (Auto) % (45.0-75.0) Lymphocytes (%) (Auto) % (20.0-45.0) Monocytes (%) (Auto) % (1.0-10.0) Eosinophils (%) (Auto) % (0.0-3.0) Basophils (%) (Auto) % (0.0-2.0) Differential Total Cells Counted 50 Neutrophils % (Manual) 50 % (45-75) Lymphocytes % (Manual) 32 % (20-45) Monocytes % (Manual) 16 % (1-10) Eosinophils % (Manual) 2 % (0-3) Basophils % (Manual) 0 % (0-2) Band Neutrophils 0 % (0-8) Nucleated Red Blood Cells 1 /100 WBC Platelet Estimate Decreased Platelet Morphology Normal Hypochromasia 1+ Anisocytosis 1+ Macrocytosis 2+ D-Dimer 0.59 mg/L FEU (0.00-0.49) Sodium Level 146 MMOL/L (136-145) Potassium Level 4.3 MMOL/L (3.5-5.1) Chloride Level 109 MMOL/L (98-107) Carbon Dioxide Level 26 MMOL/L (21-32) Anion Gap 12 mmol/L (5-15) Blood Urea Nitrogen 25 mg/dL (7-18) Creatinine 1.2 MG/DL (0.55-1.30) Estimat Glomerular Filtration Rate > 60 mL/min (>60) Glucose Level 125 MG/DL (74-106) Calcium Level 8.9 MG/DL (8.5-10.1) Total Bilirubin 0.4 MG/DL (0.2-1.0) Aspartate Amino Transf (AST/SGOT) 23 U/L (15-37) Alanine Aminotransferase (ALT/SGPT) 22 U/L (12-78) Alkaline Phosphatase 71 U/L (46-116) Troponin I 0.064 ng/mL (0.000-0.056) Pro-B-Type Natriuretic Peptide 2973 pg/mL (0-125) Total Protein 6.7 G/DL (6.4-8.2) Albumin 3.5 G/DL (3.4-5.0) Globulin 3.2 g/dL Albumin/Globulin Ratio 1.1 (1.0-2.7) EKG Diagnostic Results Rate: normal Rhythm: NSR ST Segments: no acute changes Last Vital Signs Date Time Temp Pulse Resp B/P (MAP) Pulse Ox O2 Delivery O2 Flow Rate FiO2 08/16/19 19:15 75 16 Room Air 08/16/19 19:15 98.1 142/70 98 Status: improved Disposition: XFER [facility] HOSP Condition: Stable Referrals: [facility],REFERRING (PCP) Byron Glez MD Aug 16, 2019 21:54
[2019-08-16 22:32] VITALS: BP 140/61
[2019-08-17 00:18] VITALS: BP 128/70
[2019-08-17 01:45] VITALS: BP 155/82
--- NOTE | 2019-08-17 12:26 | Diagnostic Imaging Report ---
Indication: Dyspnea Comparison: 05/03/2019 A single view chest radiograph was obtained. Findings: No definite infiltrate or pulmonary vascular congestion identified. The heart is enlarged. The aorta is mildly enlarged consistent with atherosclerotic vascular disease. The bones are osteopenic. There are thoracic vertebral enthesophytes at multiple levels. Impression: No acute disease
[2019-08-17] MEDS ORDERED: Donepezil 5mg Tab ORAL SCH (21:00)
== END 2019-08-17 01:45 | disposition short-term general hospital (02) ==
LOC: EMR 20:50
DX: R07.9 Chest pain, unspecified (principal); D72.819 Decreased white blood cell count, unspecified; D46.9 Myelodysplastic syndrome, unspecified; I11.9 Hypertensive heart disease without heart failure; E11.9 Type 2 diabetes mellitus without complications
CPT/HCPCS: 36415; 71045; 80053; 83880; 84484; 85007; 85025; 85379; 93005; 96374; 96375; 99284; J0360; J1940

== ENCOUNTER 2019-11-22 16:42 | Inpatient (IN) | payer MEDICARE ==
[~2019-11-22] VITALS: Ht 188 cm; Wt 78.9 kg
--- NOTE | 2019-11-22 16:45 | NUR ---
ED Nurse Note: brought in by ambulance ayesha ra 36 from home c/o fever 101F x1 day. denies cough or chills. Patient placed in bed; changed into gown; attached to monitor. patient ao1 to name with severe confusion; hx of dementia. all safety measures met; side rails raised; bed locked at lowest position.
--- NOTE | 2019-11-22 16:55 | NUR ---
patients grand daughter PAULO #[phone]
[2019-11-22] MEDS ORDERED: Acetaminophen 500mg (ES) tab ORAL ONE ×3 (16:59→17:30)
--- NOTE | 2019-11-22 17:00 | NUR ---
ED Nurse Note: IV access established. blood, initial lactic, blood culture, covid swab collected; sent down to lab. Oral temp 102F. ERMD aware. received order for tylenol PO 1000mg; noted and carried out.
--- NOTE | 2019-11-22 17:21 | Emergency Room Report ---
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 and therefore this was more concerning and patient sent to the emergency room No reports of any obvious vomiting or diarrhea unknown regarding cough Allergies: Coded Allergies: No Known Allergies (Unverified , 01/10/13) COVID-19 Screening Contact w/high risk pt: No Recent Travel to affected area: No Experienced COVID-19 symptoms?: No COVID-19 Testing performed 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 Patient History Limited by: medical condition Past Medical History: see triage record Reviewed Nursing Documentation: PMH: Agreed; PSxH: Agreed Nursing Documentation-PMH Hx Hypertension: Yes Hx Diabetes: Yes Hx Cancer: No Hx Gastrointestinal Problems: No Review of Systems All Other Systems: limited - Other than the ones mentioned in the history of present illness all others are reviewed however they do stay limited due to the patient's mental status Physical Exam Vital Signs Date Time Temp Pulse Resp B/P (MAP) Pulse Ox O2 Delivery O2 Flow Rate FiO2 11/22/19 16:43 100.9 108 20 160/80 (106) 99 Room Air Sp02 EP Interpretation: reviewed, normal General Appearance: no apparent distress Head: normocephalic, atraumatic Eyes: bilateral eye PERRL, bilateral eye EOMI ENT: EOM grossly intact, dry mucus membranes Neck: supple Respiratory: lungs clear, no respiratory distress, no retraction Cardiovascular #1: regular rate, rhythm Gastrointestinal: non tender, soft Musculoskeletal: other - Patient does not follow all commands however no obvious focal weakness Neurologic: other - Patient shows signs of confusion, appears to be at baseline mental status Psychiatric: normal inspection Skin: no rash Lymphatic: no adenopathy Procedures Critical Care Time Critical Care Time 50 minutes for multiple re-evaluations concerning for acute decompensation and possible not including any procedural time, Medical Decision Making Diagnostic Impression: Primary Impression: Fever Additional Impressions: Weakness Pancytopenia ER Course Multiple differentials including but not limited to sepsis, blood borne illness , metabolic, cardiac, respiratory process entertained Patient does have history of pancytopenia and again shows similar findings However the bands are fairly elevated Patient further hydrated x-ray shows questioning lesion in the right mid chest area Possible mass versus other this will require further inpatient care Patient provided further hydration and admitted for further care Labs Test 11/22/19 17:00 11/22/19 17:30 White Blood Count 3.0 K/UL (4.8-10.8) Red Blood Count 3.59 M/UL (4.70-6.10) Hemoglobin 11.0 G/DL (14.2-18.0) Hematocrit 36.9 % (42.0-52.0) Mean Corpuscular Volume 103 FL (80-99) Mean Corpuscular Hemoglobin 30.7 PG (27.0-31.0) Mean Corpuscular Hemoglobin Concent 29.8 G/DL (32.0-36.0) Red Cell Distribution Width 12.9 % (11.6-14.8) Platelet Count 106 K/UL (150-450) Mean Platelet Volume 8.0 FL (6.5-10.1) Neutrophils (%) (Auto) % (45.0-75.0) Lymphocytes (%) (Auto) % (20.0-45.0) Monocytes (%) (Auto) % (1.0-10.0) Eosinophils (%) (Auto) % (0.0-3.0) Basophils (%) (Auto) % (0.0-2.0) Differential Total Cells Counted 50 Neutrophils % (Manual) 54 % (45-75) Lymphocytes % (Manual) 16 % (20-45) Monocytes % (Manual) 8 % (1-10) Band Neutrophils 22 % (0-8) Sodium Level 138 MMOL/L (136-145) Potassium Level 3.8 MMOL/L (3.5-5.1) Chloride Level 101 MMOL/L (98-107) Carbon Dioxide Level 27 MMOL/L (21-32) Anion Gap 10 mmol/L (5-15) Blood Urea Nitrogen 16 mg/dL (7-18) Creatinine 1.2 MG/DL (0.55-1.30) Estimat Glomerular Filtration Rate > 60 mL/min (>60) Glucose Level 110 MG/DL (74-106) Lactic Acid Level 1.40 mmol/L (0.4-2.0) Calcium Level 8.6 MG/DL (8.5-10.1) Total Bilirubin 1.1 MG/DL (0.2-1.0) Direct Bilirubin 0.2 MG/DL (0.0-0.3) Aspartate Amino Transf (AST/SGOT) 20 U/L (15-37) Alanine Aminotransferase (ALT/SGPT) 11 U/L (12-78) Alkaline Phosphatase 70 U/L (46-116) Total Creatine Kinase 128 U/L (26-308) Creatine Kinase MB 1.1 NG/ML (0.0-3.6) Creatine Kinase MB Relative Index 0.8 Troponin I 0.091 ng/mL (0.000-0.056) Pro-B-Type Natriuretic Peptide 41050 pg/mL (0-125) Total Protein 7.4 G/DL (6.4-8.2) Albumin 3.6 G/DL (3.4-5.0) Globulin 3.8 g/dL Albumin/Globulin Ratio 0.9 (1.0-2.7) Lipase 72 U/L (73-393) Urine Color Yellow Urine Appearance Clear Urine pH 5 (4.5-8.0) Urine Specific [place] 1.015 (1.005-1.035) Urine Protein 2+ (NEGATIVE) Urine Glucose (UA) Negative (NEGATIVE) Urine Ketones 1+ (NEGATIVE) Urine Blood 4+ (NEGATIVE) Urine Nitrite Negative (NEGATIVE) Urine Bilirubin Negative (NEGATIVE) Urine Urobilinogen 8 MG/DL (0.0-1.0) Urine Leukocyte Esterase Negative (NEGATIVE) Urine RBC 2-4 /HPF (0 - 0) Urine WBC 0-2 /HPF (0 - 0) Urine Squamous Epithelial Cells Occasional /LPF Urine Bacteria Few /HPF (NONE) EKG Diagnostic Results Rate: normal Rhythm: NSR ST Segments: other - Nonspecific ST and T wave changes Rhythm Strip Diag. Results EP Interpretation: yes Rate: 77 Rhythm: NSR, no PVC's, no ectopy Chest X-Ray Diagnostic Results Chest X-Ray Diagnostic Results : Chest X-Ray Ordered: Yes # of Views/Limited/Complete: 1 View Indication: Chest Pain EP Interpretation: Yes Interpretation: no consolidation, no effusion, other - Right mid lung lesion Impression: Other - Right midlung lesion Electronically Signed by: Leander Temple DO Last Vital Signs Date Time Temp Pulse Resp B/P (MAP) Pulse Ox O2 Delivery O2 Flow Rate FiO2 11/22/19 16:43 100.9 108 20 160/80 (205) 99 Room Air Status: improved Disposition: ADMITTED INPATIENT Condition: Serious Leander Temple 8, 2020 17:21
[2019-11-22 17:24] LABS: HEMATOCRIT 36.9 % (42.0-52.0); MEAN CORPUSCULAR VOLUME 103 FL (80-99); PLATELET COUNT 106 K/UL (150-450); RED BLOOD COUNT 3.59 M/UL (4.70-6.10); RED CELL DISTRIBUTION WIDTH 12.9 % (11.6-14.8)
--- NOTE | 2019-11-22 17:30 | NUR ---
ED Nurse Note: urine collected; sent down to lab.
[2019-11-22 17:48] LABS: ANION GAP 10 mmol/L (5-15); BLOOD UREA NITROGEN 16 mg/dL (7-18); CALCIUM 8.6 MG/DL (8.5-10.1); CARBON DIOXIDE 27 MMOL/L (21-32); CHLORIDE 101 MMOL/L (98-107); CREATININE 1.2 MG/DL (0.55-1.30); POTASSIUM 3.8 MMOL/L (3.5-5.1); SODIUM 138 MMOL/L (136-145)
[2019-11-22 17:53] VITALS: BP 160/80
[2019-11-22 17:59] LABS: APPEARANCE,URINE CLEAR; BILIRUBIN, URINE NEGATIVE (NEGATIVE); GLUCOSE, URINE (UA) NEGATIVE (NEGATIVE); KETONES,URINE 1+ (NEGATIVE); LEUKOCYTE ESTERASE ,URINE NEGATIVE (NEGATIVE); NITRITE,URINE NEGATIVE (NEGATIVE); PH,URINE 5 (4.5-8.0); PROTEIN,URINE 2+ (NEGATIVE); UROBILINOGEN,URINE 8 MG/DL (0.0-1.0)
[2019-11-22 18:01] LABS: ALANINE AMINOTRANSFERASE 11 U/L (12-78); ALBUMIN 3.6 G/DL (3.4-5.0); ALBUMIN/GLOBULIN RATIO 0.9 (1.0-2.7); ALKALINE PHOSPHATASE 70 U/L (46-116); ASPARTATE AMINO TRANSFERASE 20 U/L (15-37); BILIRUBIN,TOTAL 1.1 MG/DL (0.2-1.0); CKMB 1.1 NG/ML (0.0-3.6); CREATINE KINASE 128 U/L (26-308)
[2019-11-22 18:02] LABS: BILIRUBIN,DIRECT 0.2 MG/DL (0.0-0.3)
[2019-11-22 18:02] LABS: COLOR,URINE YELLOW
[2019-11-22 18:26] VITALS: BP 168/64
[2019-11-22] MEDS ORDERED: cefTRIAXone 1 GM in NS 55 ML IVPB ONE (18:30)
[2019-11-22 18:46] VITALS: BP 138/80
--- NOTE | 2019-11-22 18:46 | NUR ---
ED Nurse Note: Patient in bed with no signs of acute distress. patient calm and cooperative. Reassessment of temp 101F oral.
--- NOTE | 2019-11-22 19:05 | NUR ---
HAND-OFF: Report received from Ion East RN. Pt resting in bed, aao x 1-2, VSS no ss of distress noted. Reassessment of temp 99.1 oral.
[2019-11-22 19:32] VITALS: BP 141/54
--- NOTE | 2019-11-22 21:13 | NUR ---
paged Dr. Mcintyre, and received bridging orders
--- NOTE | 2019-11-22 21:16 | Diagnostic Imaging Report ---
Indication: Chest pain Technique: One view of the chest Comparison: 08/16/2019 Findings: Ill-defined 3 cm opacity is seen in the right midlung periphery, not evident previously. The remainder of the lungs pleural spaces are clear. The heart is borderline enlarged. Impression: Right midlung focal infiltrate versus mass. Recommend follow-up to resolution Mild cardiomegaly
--- NOTE | 2019-11-22 22:01 | NUR ---
ED Nurse Note: received report from Jelena KAUFMAN. Will continue to monitor patient.
[2019-11-22 22:02] VITALS: BP 149/54
--- NOTE | 2019-11-22 22:41 | NUR ---
ED Nurse Note: REPEAT TROP DRAWN AND SENT TO LAB
--- NOTE | 2019-11-22 22:56 | NUR ---
ED Nurse Note:. GAVE REPORT TO SIXTO KAUFMAN.
[2019-11-22 23:00] VITALS: BP 137/77
--- NOTE | 2019-11-22 23:00 | NUR ---
TRANSFER TO FLOOR: Patient transferred to [facility] via [facility] in stable condition via transport 19 protocol as ordered, per dr. Mcintyre. Report given to Denise KAUFMAN. Belongings sent with patient.
--- NOTE | 2019-11-22 23:05 | NUR ---
NURSE NOTES: Received report from MANDEEP Palma. Patient transferred from ER to room 205-1 via [facility] in Covid-19 isolation protocol. Patient is awake, alert and oriented x 2-3. Oriented to room and telemetry unit. Patient is on NPO, instructed and amenable. Placed equipment monitor phototypesetting, shows sinus bradycardia with no chest pain or any other complaints at this time. Patient is on room air, no shortness of breath noted, saturating 99%. IV site is on left AC G-20 saline lock and right forearm G-18 saline lock, that is patent and intact. Safety measures are in placed, bed in lowest and lock position, side rails up x 2, bed alarm is on. Call light and bedside table within reach, instructed to call for any assistance needed. Will continue plan of care.
[2019-11-23] VITALS (8 sets, daily range): BP systolic 130–176; BP diastolic 55–81
[2019-11-23] MEDS: Vancomycin 1.25gm/NS Premix IVPB SCH (00:39)
[2019-11-23] MEDS: D5NS 1,000 ML IV SCH ×2 (00:39→13:46)
[2019-11-23 07:05] LABS: HEMATOCRIT 28.7 % (42.0-52.0); MEAN CORPUSCULAR VOLUME 93 FL (80-99); PLATELET COUNT 92 K/UL (150-450); RED BLOOD COUNT 3.08 M/UL (4.70-6.10); RED CELL DISTRIBUTION WIDTH 11.3 % (11.6-14.8); WHITE BLOOD COUNT 3.9 K/UL (4.8-10.8)
[2019-11-23] MEDS: Piperacillin/Tazobactam 3.375 GM in NS 110 ML IVPB SCH ×3 (07:18→22:00)
--- NOTE | 2019-11-23 07:18 | NUR ---
HAND-OFF: Report given to MANDEEP Lima. Patient is in stable condition, no complaints made at this time. Plan of care endorsed.
--- NOTE | 2019-11-23 07:19 | NUR ---
NURSE NOTES: Received patient in bed asleep. No SOB or acute distress. IV lines intact. Maintained on NPO. HOB elevated. Bed locked in lowest position. Call light within reach. Will continue plan of care.
[2019-11-23 07:45] LABS: ALKALINE PHOSPHATASE 56 U/L (46-116); ANION GAP 9 mmol/L (5-15); BLOOD UREA NITROGEN 14 mg/dL (7-18); CALCIUM 8.4 MG/DL (8.5-10.1); CARBON DIOXIDE 26 MMOL/L (21-32); CHLORIDE 106 MMOL/L (98-107); POTASSIUM 3.7 MMOL/L (3.5-5.1); SODIUM 141 MMOL/L (136-145)
--- NOTE | 2019-11-23 08:07 | Consultation ---
History of Present Illness General Chief Complaint: Fever Present Illness HPI This is a 89 year old male with past medical history of HTN, myelodsyplastic syndrome, dementia presents with progressive fever and shortness of breath. On presentation he was noted to be febrile. Chest xray with possible pneumonia. Allergies: Coded Allergies: No Known Allergies (Unverified , 01/10/13) Medication History Scheduled Amlodipine Besylate* (Amlodipine Besylate*), 5 MG ORAL DAILY, (Reported) Benazepril Hcl (Benazepril Hcl), 5 MG ORAL DAILY, (Reported) Brimonidine Tartrate* (Alphagan*), 1 DROP BOTH EYES DAILY, (Reported) Cetirizine Hcl* (Zyrtec*), 10 MG ORAL DAILY, (Reported) Dextran 70/Hypromellose (Artificial Tears Eye Drops*), 1 DROP BOTH EYES PRN Donepezil Hcl* (Donepezil Hcl*), 5 MG ORAL DAILY, (Reported) Dorzolamide Hcl/Timolol Maleat (Cosopt Eye Drops), 10 ML OP BID, (Reported) Fluticasone Propionate (Flonase Allergy Relief), 1 SPRAYS NS DAILY Hydroxyzine Hcl (Hydroxyzine Hcl), 10 MG PO PRN, (Reported) Latanoprost* (Xalatan*), 1 DROP BOTH EYES BEDTIME, (Reported) Lovastatin (Lovastatin), 40 MG ORAL BEDTIME, (Reported) Memantine Hcl* (Namenda*), 5 MG ORAL TWICE A DAY, (Reported) Omeprazole (Omeprazole), 20 MG ORAL DAILY, (Reported) Oxybutynin Chloride (Oxybutynin Chloride Er), 5 MG PO BID, (Reported) Quetiapine Fumarate* (Seroquel*), 25 MG ORAL DAILY, (Reported) Ranitidine Hcl* (Zantac*), 150 MG ORAL TWICE A DAY Scheduled PRN Acetaminophen* (Tylenol Extra Strength*), 500 MG ORAL Q8H PRN for Prn Headache/ Temp > 101 Ondansetron Odt* (Zofran Odt*), 4 MG BC EVERY 6 HOURS PRN for Nausea & Vomiting Miscellaneous Medications Unable to Obtain Medications (Unable To Obtain Meds), (Reported) Patient History Limited by: medical condition Healthcare decision maker Resuscitation status Advanced Directive on File Physical Exam Last 24 Hour Vital Signs Date Time Temp Pulse Resp B/P (MAP) Pulse Ox O2 Delivery O2 Flow Rate FiO2 11/23/19 04:00 98.6 52 18 148/79 (102) 98 11/23/19 04:00 46 11/23/19 00:00 98.0 50 18 130/67 (88) 99 11/23/19 00:00 56 11/22/19 23:55 Room Air 11/22/19 23:00 99.2 55 20 137/77 98 Room Air 11/22/19 23:00 99.2 55 20 137/77 98 Room Air 11/22/19 22:02 99.2 49 20 149/54 98 Room Air 11/22/19 19:32 99.1 65 21 141/54 98 Room Air 11/22/19 18:46 101.0 74 22 138/80 100 Room Air 11/22/19 18:26 101.6 80 20 168/64 99 Room Air 11/22/19 17:53 102.0 80 20 160/80 99 Room Air 11/22/19 17:53 108 20 Room Air 11/22/19 17:49 101.8 11/22/19 16:43 100.9 108 20 160/80 (106) 99 Room Air Laboratory Tests Test 11/22/19 17:00 11/22/19 17:30 11/22/19 22:35 11/23/19 05:36 White Blood Count 3.0 K/UL (4.8-10.8) L 3.9 K/UL (4.8-10.8) L Red Blood Count 3.59 M/UL (4.70-6.10) L 3.08 M/UL (4.70-6.10) L Hemoglobin 11.0 G/DL (14.2-18.0) L 10.0 G/DL (14.2-18.0) L Hematocrit 36.9 % (42.0-52.0) L 28.7 % (42.0-52.0) L Mean Corpuscular Volume 103 FL (80-99) H 93 FL (80-99) # Mean Corpuscular Hemoglobin 30.7 PG (27.0-31.0) 32.4 PG (27.0-31.0) H Mean Corpuscular Hemoglobin Concent 29.8 G/DL (32.0-36.0) L 34.8 G/DL (32.0-36.0) Red Cell Distribution Width 12.9 % (11.6-14.8) 11.3 % (11.6-14.8) L Platelet Count 106 K/UL (150-450) L 92 K/UL (150-450) L Mean Platelet Volume 8.0 FL (6.5-10.1) 5.5 FL (6.5-10.1) L Neutrophils (%) (Auto) % (45.0-75.0) % (45.0-75.0) Lymphocytes (%) (Auto) % (20.0-45.0) % (20.0-45.0) Monocytes (%) (Auto) % (1.0-10.0) % (1.0-10.0) Eosinophils (%) (Auto) % (0.0-3.0) % (0.0-3.0) Basophils (%) (Auto) % (0.0-2.0) % (0.0-2.0) Differential Total Cells Counted 50 Neutrophils % (Manual) 54 % (45-75) Pending Lymphocytes % (Manual) 16 % (20-45) L Pending Monocytes % (Manual) 8 % (1-10) Eosinophils % (Manual) 0 % (0-3) Basophils % (Manual) 0 % (0-2) Band Neutrophils 22 % (0-8) H Platelet Estimate Decreased L Pending Platelet Morphology Normal Pending Polychromasia 1+ Hypochromasia 2+ Macrocytosis 2+ Sodium Level 138 MMOL/L (136-145) 141 MMOL/L (136-145) Potassium Level 3.8 MMOL/L (3.5-5.1) 3.7 MMOL/L (3.5-5.1) Chloride Level 101 MMOL/L (98-107) 106 MMOL/L (98-107) Carbon Dioxide Level 27 MMOL/L (21-32) 26 MMOL/L (21-32) Anion Gap 10 mmol/L (5-15) 9 mmol/L (5-15) Blood Urea Nitrogen 16 mg/dL (7-18) 14 mg/dL (7-18) Creatinine 1.2 MG/DL (0.55-1.30) 1.0 MG/DL (0.55-1.30) Estimat Glomerular Filtration Rate > 60 mL/min (>60) > 60 mL/min (>60) Glucose Level 110 MG/DL (74-106) H 105 MG/DL (74-106) Lactic Acid Level 1.40 mmol/L (0.4-2.0) Calcium Level 8.6 MG/DL (8.5-10.1) 8.4 MG/DL (8.5-10.1) L Total Bilirubin 1.1 MG/DL (0.2-1.0) H Direct Bilirubin 0.2 MG/DL (0.0-0.3) Aspartate Amino Transf (AST/SGOT) 20 U/L (15-37) Alanine Aminotransferase (ALT/SGPT) 11 U/L (12-78) L Alkaline Phosphatase 70 U/L (46-116) 56 U/L (46-116) Total Creatine Kinase 128 U/L (26-308) Creatine Kinase MB 1.1 NG/ML (0.0-3.6) Creatine Kinase MB Relative Index 0.8 Troponin I 0.091 ng/mL (0.000-0.056) 0.110 ng/mL (0.000-0.056) 0.067 ng/mL (0.000-0.056) Pro-B-Type Natriuretic Peptide 34864 pg/mL (0-125) H 9667 pg/mL (0-125) H Total Protein 7.4 G/DL (6.4-8.2) Albumin 3.6 G/DL (3.4-5.0) Globulin 3.8 g/dL Albumin/Globulin Ratio 0.9 (1.0-2.7) L Lipase 72 U/L (73-393) L Urine Color Yellow Urine Appearance Clear Urine pH 5 (4.5-8.0) Urine Specific [place] 1.015 (1.005-1.035) Urine Protein 2+ (NEGATIVE) H Urine Glucose (UA) Negative (NEGATIVE) Urine Ketones 1+ (NEGATIVE) H Urine Blood 4+ (NEGATIVE) H Urine Nitrite Negative (NEGATIVE) Urine Bilirubin Negative (NEGATIVE) Urine Urobilinogen 8 MG/DL (0.0-1.0) H Urine Leukocyte Esterase Negative (NEGATIVE) Urine RBC 2-4 /HPF (0 - 0) H Urine WBC 0-2 /HPF (0 - 0) Urine Squamous Epithelial Cells Occasional /LPF Urine Bacteria Few /HPF (NONE) Magnesium Level 2.3 MG/DL (1.8-2.4) Height (Feet): 6 Height (Inches): 2.00 Weight (Pounds): 175 Medications Current Medications Medications (Trade) Dose Ordered Sig/Javy Route PRN Reason Start Time Stop Time Status Last Admin Dose Admin Dextrose/Sodium Chloride 1,000 ml @ 75 mls/hr [id number] IV 11/23/19 00:00 12/23/19 00:00 11/23/19 00:39 Piperacillin Sod/ Tazobactam Sod 3.375 gm/Sodium Chloride 110 ml @ 27.5 mls/hr Q8HR IVPB 11/23/19 06:00 11/30/19 05:59 11/23/19 07:18 Vancomycin HCl ([facility] pharmacy to dose) 1 ea DAILY MISC 11/23/19 06:00 12/23/19 05:59 Vancomycin/Sodium Chloride 275 ml @ 183.333 mls/hr Q24H IVPB 11/23/19 01:00 11/28/19 00:59 11/23/19 00:39 Objective Narrative General Appearance: no apparent distress, lethargic, confused Lines, tubes and drains: peripheral HEENT: normocephalic Neck: non-tender, normal alignment, supple, normal inspection Respiratory/Chest: chest wall non-tender, lungs clear Cardiovascular/Chest: normal peripheral pulses, normal rate, regular rhythm Abdomen: normal bowel sounds, non tender, soft, no organomegaly Extremities: normal range of motion, non-tender, normal inspection, no calf tenderness Skin Exam: normal pigmentation, warm/dry Neurologic: draw string 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 Nov 23, 2019 08:07
--- NOTE | 2019-11-23 11:35 | NUR ---
CASE MANAGEMENT: INITIAL REVIEW 89YR OLD MALE BIBA FROM HOME CC:FEVER, CONFUSION SI:FEVER . UTI 101.0 108 20 160/80 99% ON RA WBC 3.0 PLT 106 BG 110 T.LESLI 1.1 BNP 93230 LIPASE 72 TROP 0.091-0.110 IS:IVF NS BOLUS X1 TYLENOL PO X1 IV LASIX X1 IV ROCEPHIN X1 [id number] DETECTED XRAY Chest 1v: Chest pain:Right midlung focal infiltrate versus mass. Recommend follow-up to resolution. Mild cardiomegaly \: 2E TELE UNIT DCP:HOME WHEN STABLE PLAN: WOUND CARE CONTROL FEVER NPO CASE MANAGEMENT: REVIEW 11/23/19 SI:FEVER . UTI . SINUS BERNARDINO WITH BBB/PVC'S 98.1 59 18 156/55 98% ON RA WBC 3.9 H/H 10/28.7 PLT 92 BNP 9667 TROP 0.067 IS:IV ZOSYN TID IV VANCOMYCIN IV D5/NS @75ML/HR \: 2E TELE UNIT DCP:HOME WHEN STABLE PLAN: WOUND CARE CONT NPO CONT TO HYDRATE BLOOD CXR- IN PROCESS
--- NOTE | 2019-11-23 12:57 | History & Physical ---
History and Physical History & Physicial Chief Complaint: Fever Source: Family Member, Medical Record Present Illness HPI Patient presents by paramedics for reports of fever Patient himself has significant dementia cannot provide significant input By members had reported to paramedics the patient was found to have documented fever patient does have multiple comorbidities including mild dysplastic disorder as well and therefore this was more concerning and patient sent to the emergency room No reports of any obvious vomiting or diarrhea unknown regarding cough Allergies: Coded Allergies: No Known Allergies (Unverified , 01/10/13) COVID-19 Screening Contact w/high risk pt: No Recent Travel to affected area: No Experienced COVID-19 symptoms?: No 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-19 Testing 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 Patient History Limited by: medical condition Past Medical History: see triage record Reviewed Nursing Documentation: PMH: Agreed; PSxH: Agreed Nursing Documentation-PMH Hx Hypertension: Yes Hx Diabetes: Yes Hx Cancer: No Hx Gastrointestinal Problems: No Review of Systems All Other Systems: limited - Other than the ones mentioned in the history of present illness all others are reviewed however they do stay limited due to the patient's mental status Physical Exam Vital Signs Date Time Temp Pulse Resp B/P (MAP) Pulse Ox O2 Delivery O2 Flow Rate FiO2 11/22/19 16:43 100.9 108 20 160/80 (106) 99 Room Air Sp02 EP Interpretation: reviewed, normal General Appearance: no apparent distress Head: normocephalic, atraumatic Eyes: bilateral eye PERRL, bilateral eye EOMI ENT: EOM grossly intact, dry mucus membranes Neck: supple Respiratory: lungs clear, no respiratory distress, no retraction Cardiovascular : regular rate, rhythm +PROSPER Gastrointestinal: non tender, soft +bs, nd Musculoskeletal: other - Patient does not follow all commands however no obvious focal weakness Neurologic: other - Patient shows signs of confusion, appears to be at baseline mental status Psychiatric: normal inspection +dementiA Skin: no rash Lymphatic: no adenopathy Labs Test 11/22/19 17:00 11/22/19 17:30 White Blood Count 3.0 K/UL (4.8-10.8) Red Blood Count 3.59 M/UL (4.70-6.10) Hemoglobin 11.0 G/DL (14.2-18.0) Hematocrit 36.9 % (42.0-52.0) Mean Corpuscular Volume 103 FL (80-99) Mean Corpuscular Hemoglobin 30.7 PG (27.0-31.0) Mean Corpuscular Hemoglobin Concent 29.8 G/DL (32.0-36.0) Red Cell Distribution Width 12.9 % (11.6-14.8) Platelet Count 106 K/UL (150-450) Mean Platelet Volume 8.0 FL (6.5-10.1) Neutrophils (%) (Auto) % (45.0-75.0) Lymphocytes (%) (Auto) % (20.0-45.0) Monocytes (%) (Auto) % (1.0-10.0) Eosinophils (%) (Auto) % (0.0-3.0) Basophils (%) (Auto) % (0.0-2.0) Differential Total Cells Counted 50 Neutrophils % (Manual) 54 % (45-75) Lymphocytes % (Manual) 16 % (20-45) Monocytes % (Manual) 8 % (1-10) Band Neutrophils 22 % (0-8) Sodium Level 138 MMOL/L (136-145) Potassium Level 3.8 MMOL/L (3.5-5.1) Chloride Level 101 MMOL/L (98-107) Carbon Dioxide Level 27 MMOL/L (21-32) Anion Gap 10 mmol/L (5-15) Blood Urea Nitrogen 16 mg/dL (7-18) Creatinine 1.2 MG/DL (0.55-1.30) Estimat Glomerular Filtration Rate > 60 mL/min (>60) Glucose Level 110 MG/DL (74-106) Lactic Acid Level 1.40 mmol/L (0.4-2.0) Calcium Level 8.6 MG/DL (8.5-10.1) Total Bilirubin 1.1 MG/DL (0.2-1.0) Direct Bilirubin 0.2 MG/DL (0.0-0.3) Aspartate Amino Transf (AST/SGOT) 20 U/L (15-37) Alanine Aminotransferase (ALT/SGPT) 11 U/L (12-78) Alkaline Phosphatase 70 U/L (46-116) Total Creatine Kinase 128 U/L (26-308) Creatine Kinase MB 1.1 NG/ML (0.0-3.6) Creatine Kinase MB Relative Index 0.8 Troponin I 0.091 ng/mL (0.000-0.056) Pro-B-Type Natriuretic Peptide 57836 pg/mL (0-125) Total Protein 7.4 G/DL (6.4-8.2) Albumin 3.6 G/DL (3.4-5.0) Globulin 3.8 g/dL Albumin/Globulin Ratio 0.9 (1.0-2.7) Lipase 72 U/L (73-393) Urine Color Yellow Urine Appearance Clear Urine pH 5 (4.5-8.0) Urine Specific [place] 1.015 (1.005-1.035) Urine Protein 2+ (NEGATIVE) Urine Glucose (UA) Negative (NEGATIVE) Urine Ketones 1+ (NEGATIVE) Urine Blood 4+ (NEGATIVE) Urine Nitrite Negative (NEGATIVE) Urine Bilirubin Negative (NEGATIVE) Urine Urobilinogen 8 MG/DL (0.0-1.0) Urine Leukocyte Esterase Negative (NEGATIVE) Urine RBC 2-4 /HPF (0 - 0) Urine WBC 0-2 /HPF (0 - 0) Urine Squamous Epithelial Cells Occasional /LPF Urine Bacteria Few /HPF (NONE) EKG Diagnostic Results Rate: normal Rhythm: NSR ST Segments: other - Nonspecific ST and T wave changes Rhythm Strip Diag. Results EP Interpretation: yes Rate: 77 Rhythm: NSR, no PVC's, no ectopy Procedure: XRAY Chest 1v Indication: Chest pain Technique: One view of the chest Comparison: 08/16/2019 Findings: Ill-defined 3 cm opacity is seen in the right midlung periphery, not evident previously. The remainder of the lungs pleural spaces are clear. The heart is borderline enlarged. Impression: Right midlung focal infiltrate versus mass. 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
[2019-11-23] MEDS: Aspirin EC 81mg tab ORAL SCH (13:44)
--- NOTE | 2019-11-23 16:57 | NUR ---
NURSE NOTES:WOUND CARE NOTES:pt presented on admission with resolving pressure Injury zaheer cleft of buttocks. Dry pink epithelial at base of wound. Periwound skin tone is darker,dry and peeling without erythema or induration.Pt denied pain or tenderness when sacral area palpated. Both heels are boggy with non-blanching erythema. Pt denied tenderness or pain when each heels individually palpated. No other skin concerns noted.Pt. demonstrated ability to reposition self when cued and was educated on wound prevention. Encouraged to frequently change position in bed to avoid recurrent skin breakdown. Pt also encouraged to alert staff when soiled to avoid prolonged exposure to incontinence. Tx.Plan:Apply Moisture Barrier Paste to Sacrum. Cover with Optifoam drsg. Change every 3 days and prn Apply Cavilon Skin Barrier to Both heels. Cover each Heel with Optifoam drsg. Change every 7 days and prn. Reposition at least every 2hours or as tolerated. Off-load heels with Pillows.
[2019-11-23] MEDS ORDERED: Haloperidol 5mg/ml Inj IM PRN (17:45)
--- NOTE | 2019-11-23 19:50 | NUR ---
NURSE NOTES: Received pt from MANDEEP Lima. Pt awake, confused, and talkative. Pt found out of bed with IV pulled out and couldn't answer any of my questions appropriately. Will replace IV and ask MD for restraints order. Tele currently off because pt doesn't want it. Will continue to monitor.
--- NOTE | 2019-11-23 20:42 | NUR ---
NURSE NOTES: Called and reported to Dr. Armando regarding pts confusion and removal of tele monitor and IV. He gave the following orders: - Bilateral soft restraints - Haldol 5mg Q6 PRN Will input orders and will continue to monitor.
--- NOTE | 2019-11-23 20:57 | Infectious Diseases Prog Note ---
Assessment/Plan Assessment/Plan Full consult dictated: A) 1) pna, possible lung mass, fevers, sepsis, pancytopenia, rule out covid-19 virus infection with pna 2) pmh noted 3) allergies - nkda P) 1) zosyn and vancomycin 2) check cultures, labs and chest x-ray 3) f/u on covid-19 testing 4) thank you Subjective Allergies: Coded Allergies: No Known Allergies (Unverified , 01/10/13) Objective Vital Signs Last 24 Hour Vital Signs Date Time Temp Pulse Resp B/P (MAP) Pulse Ox O2 Delivery O2 Flow Rate FiO2 11/23/19 16:00 91 11/23/19 16:00 97.9 75 18 157/62 (93) 96 11/23/19 13:44 56 160/60 11/23/19 12:00 98.0 56 20 160/60 (93) 97 11/23/19 12:00 53 11/23/19 09:12 98.1 59 18 156/55 (88) 98 11/23/19 09:00 Room Air 11/23/19 08:00 57 11/23/19 08:00 98.1 59 18 162/59 (93) 98 11/23/19 04:00 98.6 52 18 148/79 (102) 98 11/23/19 04:00 46 11/23/19 00:00 98.0 50 18 130/67 (88) 99 11/23/19 00:00 56 11/22/19 23:55 Room Air 11/22/19 23:00 99.2 55 20 137/77 98 Room Air 11/22/19 23:00 99.2 55 20 137/77 98 Room Air 11/22/19 22:02 99.2 49 20 149/54 98 Room Air Height (Feet): 6 Height (Inches): 2.00 Weight (Pounds): 175 Microbiology Date/Time Source Procedure Growth Status 11/22/19 17:00 Nasopharynx Coronavirus COVID-19 PCR (NANETTE) - Final Complete Laboratory Tests Test 11/22/19 22:35 11/23/19 05:36 Troponin I 0.110 ng/mL (0.000-0.056) 0.067 ng/mL (0.000-0.056) White Blood Count 3.9 K/UL (4.8-10.8) L Red Blood Count 3.08 M/UL (4.70-6.10) L Hemoglobin 10.0 G/DL (14.2-18.0) L Hematocrit 28.7 % (42.0-52.0) L Mean Corpuscular Volume 93 FL (80-99) # Mean Corpuscular Hemoglobin 32.4 PG (27.0-31.0) H Mean Corpuscular Hemoglobin Concent 34.8 G/DL (32.0-36.0) Red Cell Distribution Width 11.3 % (11.6-14.8) L Platelet Count 92 K/UL (150-450) L Mean Platelet Volume 5.5 FL (6.5-10.1) L Neutrophils (%) (Auto) % (45.0-75.0) Lymphocytes (%) (Auto) % (20.0-45.0) Monocytes (%) (Auto) % (1.0-10.0) Eosinophils (%) (Auto) % (0.0-3.0) Basophils (%) (Auto) % (0.0-2.0) Differential Total Cells Counted 100 Neutrophils % (Manual) 69 % (45-75) Lymphocytes % (Manual) 24 % (20-45) Monocytes % (Manual) 7 % (1-10) Eosinophils % (Manual) 0 % (0-3) Basophils % (Manual) 0 % (0-2) Band Neutrophils 0 % (0-8) Platelet Estimate Decreased L Platelet Morphology Normal Red Blood Cell Morphology Normal Sodium Level 141 MMOL/L (136-145) Potassium Level 3.7 MMOL/L (3.5-5.1) Chloride Level 106 MMOL/L (98-107) Carbon Dioxide Level 26 MMOL/L (21-32) Anion Gap 9 mmol/L (5-15) Blood Urea Nitrogen 14 mg/dL (7-18) Creatinine 1.0 MG/DL (0.55-1.30) Estimat Glomerular Filtration Rate > 60 mL/min (>60) Glucose Level 105 MG/DL (74-106) Calcium Level 8.4 MG/DL (8.5-10.1) L Magnesium Level 2.3 MG/DL (1.8-2.4) Alkaline Phosphatase 56 U/L (46-116) Pro-B-Type Natriuretic Peptide 9667 pg/mL (0-125) H Current Medications Medications (Trade) Dose Ordered Sig/Javy Route PRN Reason Start Time Stop Time Status Last Admin Dose Admin Acetaminophen (Tylenol) 650 mg Q4H PRN ORAL Mild Pain (Pain Scale 1-3) 11/23/19 13:15 12/23/19 13:14 Amlodipine Besylate (Norvasc) 5 mg DAILY ORAL 11/23/19 13:30 12/23/19 13:29 11/23/19 13:44 Aspirin (Ecotrin) 81 mg DAILY ORAL 11/23/19 13:30 01/07/20 13:29 11/23/19 13:44 Dextrose/Sodium Chloride 1,000 ml @ 75 mls/hr [id number] IV 11/23/19 00:00 12/23/19 00:00 11/23/19 13:46 Haloperidol Lactate (Haldol) 2 mg Q4H PRN IM Agitation 11/23/19 17:45 01/07/20 17:44 11/23/19 17:48 Hydralazine HCl (Apresoline) 10 mg Q4H PRN IV SBP>160 11/23/19 13:15 02/21/20 13:14 Ondansetron HCl (Zofran) 4 mg Q6H PRN IVP Nausea & Vomiting 11/23/19 13:15 12/23/19 13:14 Piperacillin Sod/ Tazobactam Sod 3.375 gm/Sodium Chloride 110 ml @ 27.5 mls/hr Q8HR IVPB 11/23/19 06:00 11/30/19 05:59 11/23/19 14:19 Vancomycin HCl (Vanco pharmacy to dose) 1 ea DAILY MISC 11/23/19 06:00 12/23/19 05:59 Vancomycin/Sodium Chloride 275 ml @ 183.333 mls/hr Q24H IVPB 11/23/19 01:00 11/28/19 00:59 11/23/19 00:39 Darya Fagan MD Nov 23, 2019 20:57
--- NOTE | 2019-11-23 23:20 | Consultation ---
History of Present Illness General Chief Complaint: Fever Present Illness HPI 89 year old male presents with Fever, admitted for COVID rule out, poor historian. CXR with cardiomegaly and lung mass Allergies: Coded Allergies: No Known Allergies (Unverified , 01/10/13) Medication History Scheduled Amlodipine Besylate* (Amlodipine Besylate*), 5 MG ORAL DAILY, (Reported) Benazepril Hcl (Benazepril Hcl), 5 MG ORAL DAILY, (Reported) Brimonidine Tartrate* (Alphagan*), 1 DROP BOTH EYES DAILY, (Reported) Cetirizine Hcl* (Zyrtec*), 10 MG ORAL DAILY, (Reported) Dextran 70/Hypromellose (Artificial Tears Eye Drops*), 1 DROP BOTH EYES PRN Donepezil Hcl* (Donepezil Hcl*), 5 MG ORAL DAILY, (Reported) Dorzolamide Hcl/Timolol Maleat (Cosopt Eye Drops), 10 ML OP BID, (Reported) Fluticasone Propionate (Flonase Allergy Relief), 1 SPRAYS NS DAILY Hydroxyzine Hcl (Hydroxyzine Hcl), 10 MG PO PRN, (Reported) Latanoprost* (Xalatan*), 1 DROP BOTH EYES BEDTIME, (Reported) Lovastatin (Lovastatin), 40 MG ORAL BEDTIME, (Reported) Memantine Hcl* (Namenda*), 5 MG ORAL TWICE A DAY, (Reported) Omeprazole (Omeprazole), 20 MG ORAL DAILY, (Reported) Oxybutynin Chloride (Oxybutynin Chloride Er), 5 MG PO BID, (Reported) Quetiapine Fumarate* (Seroquel*), 25 MG ORAL DAILY, (Reported) Ranitidine Hcl* (Zantac*), 150 MG ORAL TWICE A DAY Scheduled PRN Acetaminophen* (Tylenol Extra Strength*), 500 MG ORAL Q8H PRN for Prn Headache/ Temp > 101 Ondansetron Odt* (Zofran Odt*), 4 MG BC EVERY 6 HOURS PRN for Nausea & Vomiting Miscellaneous Medications Unable to Obtain Medications (Unable To Obtain Meds), (Reported) Patient History Healthcare decision maker Resuscitation status Advanced Directive on File Review of Systems Constitutional: Reports: fever Eye: Reports: no symptoms ENT: Reports: no symptoms Respiratory: Reports: no symptoms Cardiovascular: Reports: no symptoms Gastrointestinal: Reports: no symptoms Genitourinary: Reports: no symptoms Musculoskeletal: Reports: no symptoms Skin: Reports: no symptoms Psychiatric: Reports: no symptoms Neurological: Reports: no symptoms Endocrine: Reports: no symptoms Hematologic/Lymphatic: Reports: no symptoms Physical Exam General Appearance: no apparent distress, lethargic, confused Lines, tubes and drains: peripheral HEENT: normocephalic Neck: non-tender, normal alignment, supple, normal inspection Respiratory/Chest: chest wall non-tender, lungs clear Cardiovascular/Chest: normal peripheral pulses, normal rate, regular rhythm Abdomen: normal bowel sounds, non tender, soft, no organomegaly Extremities: normal range of motion, non-tender, normal inspection, no calf tenderness Skin Exam: normal pigmentation, warm/dry 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, motor weakness, disoriented Last 24 Hour Vital Signs Date Time Temp Pulse Resp B/P (MAP) Pulse Ox O2 Delivery O2 Flow Rate FiO2 11/23/19 23:04 98.1 67 18 176/81 (112) 98 11/23/19 20:00 98.1 75 18 165/73 (103) 97 11/23/19 16:00 91 11/23/19 16:00 97.9 75 18 157/62 (93) 96 11/23/19 13:44 56 160/60 11/23/19 12:00 98.0 56 20 160/60 (93) 97 11/23/19 12:00 53 11/23/19 09:12 98.1 59 18 156/55 (88) 98 11/23/19 09:00 Room Air 11/23/19 08:00 57 11/23/19 08:00 98.1 59 18 162/59 (93) 98 11/23/19 04:00 98.6 52 18 148/79 (102) 98 11/23/19 04:00 46 11/23/19 00:00 98.0 50 18 130/67 (88) 99 11/23/19 00:00 56 11/22/19 23:55 Room Air Laboratory Tests Test 11/23/19 05:36 White Blood Count 3.9 K/UL (4.8-10.8) L Red Blood Count 3.08 M/UL (4.70-6.10) L Hemoglobin 10.0 G/DL (14.2-18.0) L Hematocrit 28.7 % (42.0-52.0) L Mean Corpuscular Volume 93 FL (80-99) # Mean Corpuscular Hemoglobin 32.4 PG (27.0-31.0) H Mean Corpuscular Hemoglobin Concent 34.8 G/DL (32.0-36.0) Red Cell Distribution Width 11.3 % (11.6-14.8) L Platelet Count 92 K/UL (150-450) L Mean Platelet Volume 5.5 FL (6.5-10.1) L Neutrophils (%) (Auto) % (45.0-75.0) Lymphocytes (%) (Auto) % (20.0-45.0) Monocytes (%) (Auto) % (1.0-10.0) Eosinophils (%) (Auto) % (0.0-3.0) Basophils (%) (Auto) % (0.0-2.0) Differential Total Cells Counted 100 Neutrophils % (Manual) 69 % (45-75) Lymphocytes % (Manual) 24 % (20-45) Monocytes % (Manual) 7 % (1-10) Eosinophils % (Manual) 0 % (0-3) Basophils % (Manual) 0 % (0-2) Band Neutrophils 0 % (0-8) Platelet Estimate Decreased L Platelet Morphology Normal Red Blood Cell Morphology Normal Sodium Level 141 MMOL/L (136-145) Potassium Level 3.7 MMOL/L (3.5-5.1) Chloride Level 106 MMOL/L (98-107) Carbon Dioxide Level 26 MMOL/L (21-32) Anion Gap 9 mmol/L (5-15) Blood Urea Nitrogen 14 mg/dL (7-18) Creatinine 1.0 MG/DL (0.55-1.30) Estimat Glomerular Filtration Rate > 60 mL/min (>60) Glucose Level 105 MG/DL (74-106) Calcium Level 8.4 MG/DL (8.5-10.1) L Magnesium Level 2.3 MG/DL (1.8-2.4) Alkaline Phosphatase 56 U/L (46-116) Troponin I 0.067 ng/mL (0.000-0.056) Pro-B-Type Natriuretic Peptide 9667 pg/mL (0-125) H Height (Feet): 6 Height (Inches): 2.00 Weight (Pounds): 175 Medications Current Medications Medications (Trade) Dose Ordered Sig/Javy Route PRN Reason Start Time Stop Time Status Last Admin Dose Admin Acetaminophen (Tylenol) 650 mg Q4H PRN ORAL Mild Pain (Pain Scale 1-3) 11/23/19 13:15 12/23/19 13:14 Amlodipine Besylate (Norvasc) 5 mg DAILY ORAL 11/23/19 13:30 12/23/19 13:29 11/23/19 13:44 Aspirin (Ecotrin) 81 mg DAILY ORAL 11/23/19 13:30 01/07/20 13:29 11/23/19 13:44 Dextrose/Sodium Chloride 1,000 ml @ 75 mls/hr [id number] IV 11/23/19 00:00 12/23/19 00:00 11/23/19 13:46 Haloperidol Lactate (Haldol) 5 mg Q6H PRN IM Agitation 11/23/19 21:00 01/07/20 17:44 Hydralazine HCl (Apresoline) 10 mg Q4H PRN IV SBP>160 11/23/19 13:15 02/21/20 13:14 Ondansetron HCl (Zofran) 4 mg Q6H PRN IVP Nausea & Vomiting 11/23/19 13:15 12/23/19 13:14 Piperacillin Sod/ Tazobactam Sod 3.375 gm/Sodium Chloride 110 ml @ 27.5 mls/hr Q8HR IVPB 11/23/19 06:00 11/30/19 05:59 11/23/19 14:19 Vancomycin HCl (Vanco pharmacy to dose) 1 ea DAILY MISC 11/23/19 06:00 12/23/19 05:59 Vancomycin/Sodium Chloride 275 ml @ 183.333 mls/hr Q24H IVPB 11/23/19 01:00 11/28/19 00:59 11/23/19 00:39 Assessment/Plan Status: stable Assessment/Plan: ASSESSMENT Fever unknown origin lung mass cardiomegaly Rule out COVID Troponin elevation PLAN: Serial EKG/Troponin Monitor on telemetry CT scan to evaluate lung mass, pulm consult for work up Empiric Abx Echocardiogram COVID rule out Follow up blood/urine cultures Start Norvasc for hypertension Tenzin Mitchell MD Nov 23, 2019 23:20
[2019-11-24] MEDS: Vancomycin 1.25gm/NS Premix IVPB SCH (00:15)
--- NOTE | 2019-11-24 00:30 | NUR ---
NURSE NOTES: Called orion franco because pt got himself out of restraints and was threatening to "kill somebody". Haldol administered and pt put back on restraints. Will continue to monitor.
[2019-11-24] MEDS: Haloperidol 5mg/ml Inj IM PRN (00:41)
--- NOTE | 2019-11-24 02:12 | NUR ---
NURSE NOTES: pt broke out of restraints and removed new IV and tele box. Reoriented pt to place. Will call the MD and report no IV. Will continue to monitor.
[2019-11-24] MEDS: D5NS 1,000 ML IV SCH ×2 (02:16→16:00)
--- NOTE | 2019-11-24 03:15 | Consultation ---
DATE OF CONSULTATION: 11/23/2019 INFECTIOUS DISEASES CONSULTATION CONSULTING PHYSICIAN: Darya Fagan MD. ATTENDING PHYSICIAN: Reinier Armando MD. REFERRING PHYSICIAN: Reinier Armando MD. REASON FOR CONSULTATION: Sepsis, pneumonia, fevers. CHIEF COMPLAINT: The patient's chief complaint coming into the hospital is fevers, pancytopenia. HISTORY OF PRESENT ILLNESS: This is a very pleasant 89-year-old male who has a history of dysplastic syndrome, not clear the exact type of syndrome and he has history ? myelodysplastic disorder who presents to [facility] with fevers and pancytopenia. The patient's temperature was as high as 102. The patient was noted on chest x-ray to have possible pneumonia. Infectious Diseases consultation requested for the patient with pancytopenia, fevers, possible sepsis, and pneumonia. There was concern that the patient could also have COVID-19 virus infection. It seems he could have pulmonary mass. The patient was empirically started on vancomycin and Zosyn for pneumonia, sepsis, and fevers. MAR was noted. Orders were noted. Notes were reviewed. The patient is not a very good historian, but is responsive. REVIEW OF SYSTEMS: He came in with fevers, currently has no night sweats or chills. His temperature on admission was 102. He has maybe some generalized fatigue but no focal weakness. HEAD AND NECK: No head pain or neck pain. No thrush, dysphagia, headache, neck stiffness. CARDIAC: No chest pain or palpitations. GASTROINTESTINAL: No nausea, vomiting, abdominal pain, or diarrhea. GENITOURINARY: No dysuria or frequency. PULMONARY: He has mild cough and congestion but no secretions or hemoptysis. SKIN: No rash or itching. EXTREMITIES: No extremity pain. NEUROLOGIC: No seizure activity. There is generalized fatigue. No focal weakness. No CVA tenderness. no diallo PAST MEDICAL HISTORY: The patient's past medical history includes the following: The patient has a past medical history of some dysplastic disorder with pancytopenia, anemia, leukopenia, thrombocytopenia. Other past medical includes dementia. The patient has also past medical history of hypertension, I believe, essential hypertension and diabetes. ALLERGIES: No known drug allergies. No antibiotic allergies. SOCIAL HISTORY: Negative for smoking, alcohol, or drug abuse. FAMILY HISTORY: Negative for tuberculosis or cancer. MEDICATIONS: Upon reviewing the MAR, he is on the following medications. He is on haloperidol, amlodipine, aspirin, Zofran, acetaminophen, hydralazine, vancomycin, and Zosyn. Outside medications noted and reconciliated. PHYSICAL EXAMINATION: VITAL SIGNS: Temperature 97.9, pulse rate 75, respiratory rate 18, blood pressure 157/62, O2 saturation 96% on room air. T-max is 102. Pulse rate on admission was 108, respiratory rate on admission was as high as 22. GENERAL: Alert and responsive, no acute distress, maybe mild cough. HEAD AND NECK: Oral exam, no thrush. Eye exam, no icterus. Normocephalic. Neck is supple. No JVD. HEART: Regular. No gallop or murmur. No friction rub. ABDOMEN: Soft. Positive bowel sounds. Nontender. LUNGS: Few bilateral rhonchi with possible right-sided rales. SKIN: No rash or dermatitis. MUSCULOSKELETAL: No effusions. No septic arthritis. Legs without cellulitis. No significant edema. PERIPHERAL VASCULAR: No gangrene. GENITOURINARY: No Diallo. No CVA tenderness. LINE SITES: Without phlebitis. NEUROLOGIC: Generalized weakness. Alert and responsive. LABORATORY DATA: UA had 0 to 2 white cells. Creatinine was 1.0. Lactic acid is 1.4. LFTs were noted, normal. White count 3.9, hemoglobin 10.0, platelet count is 92. Cultures are pending. Testing was nasopharyngeal swab of the nucleic acid amplification test, it was nondetected. I am not sure that was a PCR also. Leukocyte esterase negative on urinalysis. Creatinine 1.2 and now creatinine was 1.0. Troponin was elevated and was noted. Cultures are pending. IMAGING STUDIES: Chest x-ray shows a right mid lung focal infiltrate versus mass. ASSESSMENT AND PLAN: 1. The patient has possible right-sided pneumonia rule out community-acquired pneumonia versus some type of aspiration pneumonia, mass, dementia. Rule out COVID-19 virus infection with pneumonia. Initial nasopharyngeal nucleic acid testing is negative, unclear if it was PCR or rapid test, nucleic acid amplification tests. Followup I think another test was ordered and is pending. The patient remains in COVID-19 virus isolation. At this time, the patient could be septic with leukopenia, pancytopenia, fevers secondary to possible pneumonia. I agree with vancomycin and Zosyn empirically for MRSA gram-negative coverage. Continue vancomycin and Zosyn for possible community-acquired pneumonia, rule out aspiration pneumonia, rule out pulmonary mass with sepsis, fevers, and pancytopenia. Check cultures, labs, and followup chest x-ray. Consider CT scan of the chest. Consider pulmonary evaluation also. Continue vancomycin and Zosyn now for pneumonia and sepsis. Pending workup. 2. The patient has history of diabetes. 3. Hypertension. 4. Blood sugar and blood pressure treatment per primary care team for diabetes and hypertension. 5. Dementia. 6. Aspiration risk. 7. Dysplastic syndrome. 8. Pancytopenia. 9. Anemia, thrombocytopenia, leukopenia. 10. Continue treatment per primary consultants. 11. No known drug allergies. 12. Social history is negative. 13. Family history is noncontributory. 14. MAR was noted. 15. Case discussed with RN. 16. Continue COVID-19 virus isolation, pending second testing result. Darya Fagan M.D. DR: Sonny JOB#: [id number] CC: LIU
--- NOTE | 2019-11-24 03:34 | NUR ---
NURSE NOTES: Called and left a message with Dr. Lanier regarding pts IV. Awaiting call back.
[2019-11-24] MEDS: Piperacillin/Tazobactam 3.375 GM in NS 110 ML IVPB SCH (05:14)
[2019-11-24 07:22] LABS: HEMATOCRIT 28.8 % (42.0-52.0); MEAN CORPUSCULAR VOLUME 92 FL (80-99); PLATELET COUNT 107 K/UL (150-450); RED BLOOD COUNT 3.14 M/UL (4.70-6.10); RED CELL DISTRIBUTION WIDTH 11.2 % (11.6-14.8); WHITE BLOOD COUNT 2.5 K/UL (4.8-10.8)
--- NOTE | 2019-11-24 07:39 | NUR ---
HAND-OFF: Report given to MANDEEP Wiggins. Pt stable.
[2019-11-24 07:46] LABS: ALANINE AMINOTRANSFERASE 11 U/L (12-78); ALBUMIN/GLOBULIN RATIO 0.8 (1.0-2.7); ALKALINE PHOSPHATASE 55 U/L (46-116); ANION GAP 10 mmol/L (5-15); ASPARTATE AMINO TRANSFERASE 32 U/L (15-37); BILIRUBIN,TOTAL 0.9 MG/DL (0.2-1.0); BLOOD UREA NITROGEN 12 mg/dL (7-18); CALCIUM 8.3 MG/DL (8.5-10.1); CARBON DIOXIDE 24 MMOL/L (21-32); CHLORIDE 107 MMOL/L (98-107); FERRITIN 436 NG/ML (8-388); LACTATE DEHYDROGENASE 191 U/L (81-234); POTASSIUM 3.5 MMOL/L (3.5-5.1); SODIUM 141 MMOL/L (136-145)
--- NOTE | 2019-11-24 07:51 | NUR ---
NURSE NOTES: Patient received from Ashanti KAUFMAN. Patient is in stable condition. Resting in bed. Not in distress. On room air. A&O x1. Call light within reach. Bed in lowest position and locked. Will continue plan of care.
[2019-11-24 08:00] VITALS: BP 133/79
--- NOTE | 2019-11-24 08:54 | NUR ---
CASE MANAGEMENT: REVIEW 11/24/19 SI:+ TROP ACS . ENCEPHALOPATHY . UTI . SINUS BERNADRINO WITH BBB/PVC'S 97.7 90 21 133/79 98% ON RA ((D-DIMER 10.82)) ((TROP 0.152)) WBC 2.5 H/H 04/12.8 FERR 436 PLT 107 BNP 9667 C-REACT PROT-11.2 IS:IV ZOSYN TID IV VANCOMYCIN IV D5/NS @75ML/HR NORVASC PO QD HYDRALAZINE Q4H/PRN ASPIRIN PO QD \: 2E TELE UNIT DCP:HOME WHEN STABLE PLAN: COVID-19- NEGATIVE X1 AFEBRILE ~FEVERS ON ADMISSION MONITOR BEHAVIOR ~BILATERAL WRIST RESTRAINTS NEURO CHECKS R/O MASS VS MIDLUNG FOCAL INFILTRATE CT SCAN RECOMMENDATIONS PER CARDIO PULMO CONSULT
[2019-11-24] MEDS: Aspirin EC 81mg tab ORAL SCH (09:22)
--- NOTE | 2019-11-24 10:00 | NUR ---
NURSE NOTES: Patient's troponin is High, Dr. Mitchell is aware.
[2019-11-24 12:00] VITALS: BP 165/79
--- NOTE | 2019-11-24 12:16 | Internal Med Progress Note ---
Subjective Date of Service: Nov 24, 2019 Physician Name Preeti Alfaro Attending Physician Preeti Alfaro MD Current Medications Medications (Trade) Dose Ordered Sig/Javy Route PRN Reason Start Time Stop Time Status Last Admin Dose Admin Acetaminophen (Tylenol) 650 mg Q4H PRN ORAL Mild Pain (Pain Scale 1-3) 11/23/19 13:15 12/23/19 13:14 Amlodipine Besylate (Norvasc) 10 mg DAILY ORAL 11/24/19 09:00 12/24/19 08:59 11/24/19 09:22 Aspirin (Ecotrin) 81 mg DAILY ORAL 11/23/19 13:30 01/07/20 13:29 11/24/19 09:22 Dextrose/Sodium Chloride 1,000 ml @ 75 mls/hr [id number] IV 11/23/19 00:00 12/23/19 00:00 11/23/19 13:46 Haloperidol Lactate (Haldol) 5 mg Q6H PRN IM Agitation 11/23/19 21:00 01/07/20 17:44 11/24/19 00:41 Hydralazine HCl (Apresoline) 10 mg Q4H PRN IV SBP>160 11/23/19 13:15 02/21/20 13:14 11/24/19 00:15 Ondansetron HCl (Zofran) 4 mg Q6H PRN IVP Nausea & Vomiting 11/23/19 13:15 12/23/19 13:14 Piperacillin Sod/ Tazobactam Sod 3.375 gm/Sodium Chloride 110 ml @ 27.5 mls/hr Q8HR IVPB 11/23/19 06:00 11/30/19 05:59 11/23/19 22:00 Vancomycin HCl (Vanco pharmacy to dose) 1 ea DAILY MISC 11/23/19 06:00 12/23/19 05:59 Vancomycin/Sodium Chloride 275 ml @ 183.333 mls/hr Q24H IVPB 11/23/19 01:00 11/28/19 00:59 11/24/19 00:15 Allergies: Coded Allergies: No Known Allergies (Unverified , 01/10/13) ROS Limited/Unobtainable: Yes Constitutional: Reports: no symptoms HEENT: Reports: no symptoms Cardiovascular: Reports: no symptoms Respiratory: Reports: cough Gastrointestinal/Abdominal: Reports: no symptoms, vomiting Genitourinary: Reports: no symptoms Neurologic/Psychiatric: Reports: anxiety, other All Systems: reviewed and negative except above - agitated, in soft restraint Objective Last Vital Signs Date Time Temp Pulse Resp B/P (MAP) Pulse Ox O2 Delivery O2 Flow Rate FiO2 11/24/19 12:00 98.8 75 19 165/79 (107) 97 11/24/19 09:00 Room Air General Appearance: no apparent distress Neck: supple Cardiovascular: normal rate, regular rhythm, systolic murmur Respiratory/Chest: rhonchi - bilaterally Abdomen: normal bowel sounds, non tender, soft, no mass Neurologic: no motor/sensory deficits, responsive Skin: warm/dry Laboratory Tests Test 11/24/19 06:40 White Blood Count 2.5 K/UL (4.8-10.8) L Red Blood Count 3.14 M/UL (4.70-6.10) L Hemoglobin 10.0 G/DL (14.2-18.0) L Hematocrit 28.8 % (42.0-52.0) L Mean Corpuscular Volume 92 FL (80-99) Mean Corpuscular Hemoglobin 31.8 PG (27.0-31.0) H Mean Corpuscular Hemoglobin Concent 34.6 G/DL (32.0-36.0) Red Cell Distribution Width 11.2 % (11.6-14.8) L Platelet Count 107 K/UL (150-450) L Mean Platelet Volume 5.6 FL (6.5-10.1) L Neutrophils (%) (Auto) % (45.0-75.0) Lymphocytes (%) (Auto) % (20.0-45.0) Monocytes (%) (Auto) % (1.0-10.0) Eosinophils (%) (Auto) % (0.0-3.0) Basophils (%) (Auto) % (0.0-2.0) Neutrophils % (Manual) Pending Lymphocytes % (Manual) Pending Platelet Estimate Pending Platelet Morphology Pending D-Dimer 10.82 mg/L FEU (0.00-0.49) H Sodium Level 141 MMOL/L (136-145) Potassium Level 3.5 MMOL/L (3.5-5.1) Chloride Level 107 MMOL/L (98-107) Carbon Dioxide Level 24 MMOL/L (21-32) Anion Gap 10 mmol/L (5-15) Blood Urea Nitrogen 12 mg/dL (7-18) Creatinine 1.0 MG/DL (0.55-1.30) Estimat Glomerular Filtration Rate > 60 mL/min (>60) Glucose Level 97 MG/DL (74-106) Calcium Level 8.3 MG/DL (8.5-10.1) L Ferritin 436 NG/ML (8-388) H Total Bilirubin 0.9 MG/DL (0.2-1.0) Aspartate Amino Transf (AST/SGOT) 32 U/L (15-37) Alanine Aminotransferase (ALT/SGPT) 11 U/L (12-78) L Alkaline Phosphatase 55 U/L (46-116) Lactate Dehydrogenase 191 U/L (81-234) Troponin I 0.152 ng/mL (0.000-0.056) C-Reactive Protein, Quantitative 11.2 mg/dL (0.00-0.90) H Total Protein 6.6 G/DL (6.4-8.2) Albumin 3.0 G/DL (3.4-5.0) L Globulin 3.6 g/dL Albumin/Globulin Ratio 0.8 (1.0-2.7) L Microbiology Date/Time Source Procedure Growth Status 11/22/19 17:00 Blood Blood Culture - Preliminary NO GROWTH AFTER 24 HOURS Resulted 11/22/19 16:45 Blood Blood Culture - Preliminary NO GROWTH AFTER 24 HOURS Resulted 11/23/19 14:28 Nasopharynx Coronavirus COVID-19 PCR (NANETTE) - Final Complete 11/22/19 17:00 Nasopharynx Coronavirus COVID-19 PCR (NANETTE) - Final Complete Intake and Output 11/23/19 11/24/19 19:00 07:00 Intake Total 120 ml Output Total 700 ml Balance -580 ml Intake Oral 120 ml Output Urine Total 700 ml Assessment/Plan Status: stable, progressing Assessment/Plan IMPRESSION: FEVER right lung pneumonia vs mass SIRS elevated pro BNP rule out CHF elevated troponin pancytopenia dementia with psychotic behavior PLAN: TTE reviewed tele ruled out covid-[address] wo contrast lasix IV abx f/u cultures electrolyte replete as needed cardio f/u pulm eval psych eval Haldol IM prn until psych eval soft restraint as needed for safey and fall prevention asa BP control PREETI ALFARO MD INTERNAL MEDICINE [phone] TIME OF NOTE MAY NOT BE THE ACTUAL ENCOUNTER TIME FULL CODE TIME SPENT TODAY 40 MINUTES Preeti lAfaro MD Nov 24, 2019 12:15
--- NOTE | 2019-11-24 12:35 | NUR ---
INFORMATION SYSTEMS SECURITY OFFICER BEDSIDE SWALLOW EVALUATION (Please see complete report in care activity section) PATIENT REFERRED FOR BEDSIDE SWALLOW EVALUATION BY DR. ALFARO: DYSPHAGIA RISK FACTORS FOR THIS 89 Y.O. MALE: ACUTE ISSUES: Possible lung mass, Fevers, Sepsis, Pancytopenia, rule out Covid-19 virus infection with PNA; UTI; FEVER; Cardiomegaly, Encephalopathy, Sinus Ady with BBB/PVC's. H/O: Dementia, low WBC, HTN, HYPERLIPIDEMIA, A-Fib, Myelodysplastic Disorder, Anemia, Leukopenia, Thrombocytopenia, DM. RELEVANT MEDS: Zofran (Nausea); Haldol (Antipsychotic). VITALS ON ROOM AIR: HR: 90; RR: 21; SP02 98% POLST: Patient is a full code. PER Patient's Granddaughter (POA); when Patient was initially admitted to this facility, Patient was noted to masticate food for extended periods of time without swallowing. Prior to this incident, Patient has no history of swallowing difficulties. Patient seen at bedside, is alert and VSS for the duration of the session. Patient is oriented x1 only; INFORMATION SYSTEMS SECURITY OFFICER educated Patient on location, situation, and time. Patient continued to be confused, INFORMATION SYSTEMS SECURITY OFFICER assisted Patient in calling Granddaughter to minimize agitation. Patient's oral motor ROM and coordination are WNL, able to express wants and needs without difficulties. Patient is able to self feed, and dentition is natural and intact. Oral hygiene is good. INITIAL IMPRESSIONS: Appears to have a grossly functional swallow, timely and adequate oral preparation and oropharyngeal transit times, adequate rotary mastication, no oral residuals remaining in oral cavity, laryngeal elevation is fair to good. No overt s/s of aspiration with thin liquids, moist puree, or hard solids. -Given Thin Liquids via cup sip, Patient able to complete sequential swallows via cup without overt s/s of aspiration, vocal quality remained clear, and laryngeal elevation is fair. -Given Puree and Hard Solids: Timely and adequate rotary mastication and oral preparation times, no oral residuals, laryngeal elevation is fair. No overt s/s of aspiration. PATIENT HAS RISK FOR ASPIRATION AND POOR PO DUE TO SIGNIFICANT BEHAVIORAL DEFICITS (GIVEN HALDOL FOR AGITATION; H/O DEMENTIA) RECOMMENDATIONS: 1. Regular texture with thin liquids 2. RD consult for diet type/supplements. 3. INFORMATION SYSTEMS SECURITY OFFICER plans to f/u x1 to assure safety with current diet consistency. INFORMATION SYSTEMS SECURITY OFFICER made RN aware of results, recommendations, and INFORMATION SYSTEMS SECURITY OFFICER POC. INFORMATION SYSTEMS SECURITY OFFICER called Patient's Granddaughter and educated on results of the evaluation, recommendations, and POC. INFORMATION SYSTEMS SECURITY OFFICER plans to f/u x1 while Patient is in house, no further INFORMATION SYSTEMS SECURITY OFFICER intervention for swallowing indicated at this time. However, given Patient's age and PMHx, after speaking with Patient's primary caregiver, Mary Beth, Patient would benefit from INFORMATION SYSTEMS SECURITY OFFICER cognitive communicative tx for education and training on caregiving and Dementia while in house. Thank you for this referral! INFORMATION SYSTEMS SECURITY OFFICER [phone]
--- NOTE | 2019-11-24 15:40 | Cardiology Progress Note ---
Assessment/Plan Status: stable Assessment/Plan Assessment/Plan Status: stable Assessment/Plan: ASSESSMENT Fever unknown origin lung mass cardiomegaly Rule out COVID Troponin elevation PLAN: Serial EKG/Troponin Monitor on telemetry CT scan to evaluate lung mass, pulm consult for work up Empiric Abx Echocardiogram with normal LV function but elevated filling pressures grade 2 diastolic dysfunction and pulmonary hypertension Start diuresis to lower LVEDP and PAP COVID rule out Follow up blood/urine cultures Continue Norvasc for hypertension Subjective Cardiovascular: Reports: no symptoms Respiratory: Reports: no symptoms Gastrointestinal/Abdominal: Reports: no symptoms Genitourinary: Reports: no symptoms Subjective No acute events, TTE with normal LV function and moderate TR pulmonary hypertension and elevated right sided pressures Objective Last 24 Hour Vital Signs Date Time Temp Pulse Resp B/P (MAP) Pulse Ox O2 Delivery O2 Flow Rate FiO2 11/24/19 12:00 98.8 75 19 165/79 (107) 97 11/24/19 12:00 72 11/24/19 10:00 78 11/24/19 09:22 90 133/79 11/24/19 09:00 Room Air 11/24/19 08:00 97.7 90 21 133/79 (97) 98 11/24/19 00:15 176/81 11/24/19 00:00 72 11/23/19 23:04 98.1 67 18 176/81 (112) 98 11/23/19 21:00 Room Air 11/23/19 20:00 53 11/23/19 20:00 98.1 75 18 165/73 (103) 97 11/23/19 16:00 91 11/23/19 16:00 97.9 75 18 157/62 (93) 96 General Appearance: no apparent distress, alert EENT: PERRL/EOMI, normal ENT inspection, TMs normal Neck: normal alignment, normal inspection Rhythm: NSR, PVCs Cardiovascular: normal peripheral pulses, normal rate Respiratory/Chest: chest wall non-tender, lungs clear, normal breath sounds Abdomen: normal bowel sounds, non tender, soft, no organomegaly Extremities: normal range of motion, non-tender, normal inspection, no calf tenderness, no swelling 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 grossly normal, no motor/sensory deficits Intake and Output 11/23/19 11/24/19 19:00 07:00 Intake Total 120 ml Output Total 700 ml Balance -580 ml Intake Oral 120 ml Output Urine Total 700 ml Laboratory Tests Test 11/24/19 06:40 White Blood Count 2.5 K/UL (4.8-10.8) L Red Blood Count 3.14 M/UL (4.70-6.10) L Hemoglobin 10.0 G/DL (14.2-18.0) L Hematocrit 28.8 % (42.0-52.0) L Mean Corpuscular Volume 92 FL (80-99) Mean Corpuscular Hemoglobin 31.8 PG (27.0-31.0) H Mean Corpuscular Hemoglobin Concent 34.6 G/DL (32.0-36.0) Red Cell Distribution Width 11.2 % (11.6-14.8) L Platelet Count 107 K/UL (150-450) L Mean Platelet Volume 5.6 FL (6.5-10.1) L Neutrophils (%) (Auto) % (45.0-75.0) Lymphocytes (%) (Auto) % (20.0-45.0) Monocytes (%) (Auto) % (1.0-10.0) Eosinophils (%) (Auto) % (0.0-3.0) Basophils (%) (Auto) % (0.0-2.0) Differential Total Cells Counted 100 Neutrophils % (Manual) 61 % (45-75) Lymphocytes % (Manual) 25 % (20-45) Monocytes % (Manual) 14 % (1-10) H Eosinophils % (Manual) 0 % (0-3) Basophils % (Manual) 0 % (0-2) Band Neutrophils 0 % (0-8) Platelet Estimate Decreased L Platelet Morphology Normal Hypochromasia 1+ Anisocytosis 1+ Spherocytes 1+ D-Dimer 10.82 mg/L FEU (0.00-0.49) H Sodium Level 141 MMOL/L (136-145) Potassium Level 3.5 MMOL/L (3.5-5.1) Chloride Level 107 MMOL/L (98-107) Carbon Dioxide Level 24 MMOL/L (21-32) Anion Gap 10 mmol/L (5-15) Blood Urea Nitrogen 12 mg/dL (7-18) Creatinine 1.0 MG/DL (0.55-1.30) Estimat Glomerular Filtration Rate > 60 mL/min (>60) Glucose Level 97 MG/DL (74-106) Calcium Level 8.3 MG/DL (8.5-10.1) L Ferritin 436 NG/ML (8-388) H Total Bilirubin 0.9 MG/DL (0.2-1.0) Aspartate Amino Transf (AST/SGOT) 32 U/L (15-37) Alanine Aminotransferase (ALT/SGPT) 11 U/L (12-78) L Alkaline Phosphatase 55 U/L (46-116) Lactate Dehydrogenase 191 U/L (81-234) Troponin I 0.152 ng/mL (0.000-0.056) C-Reactive Protein, Quantitative 11.2 mg/dL (0.00-0.90) H Total Protein 6.6 G/DL (6.4-8.2) Albumin 3.0 G/DL (3.4-5.0) L Globulin 3.6 g/dL Albumin/Globulin Ratio 0.8 (1.0-2.7) L Microbiology Date/Time Source Procedure Growth Status 11/22/19 17:00 Blood Blood Culture - Preliminary NO GROWTH AFTER 24 HOURS Resulted 11/22/19 16:45 Blood Blood Culture - Preliminary NO GROWTH AFTER 24 HOURS Resulted 11/23/19 14:28 Nasopharynx Coronavirus COVID-19 PCR (NANETTE) - Final Complete 11/22/19 17:00 Nasopharynx Coronavirus COVID-19 PCR (NANETTE) - Final Complete Tenzin Mitchell MD Nov 24, 2019 15:40
[2019-11-24 16:00] VITALS: BP 160/86
--- NOTE | 2019-11-24 19:15 | NUR ---
HAND-OFF: Report given to Minda KAUFMAN. Patient in stable condition. On room air. Not in distress. Bed in lowest position and locked. Call light within reach. Endorsed plan of care. Addendum: 11/24/19 at 1938 by Grzegorz Gomez RN Wrong patient and user
--- NOTE | 2019-11-24 19:25 | NUR ---
HAND-OFF: Report given to Grzegorz KAUFMAN. Patient in stable condition. On room air. Not in distress. Bed in lowest position and locked. Call light within reach. Endorsed plan of care.
--- NOTE | 2019-11-24 19:30 | NUR ---
NURSE NOTES: Pt. received from MANDEEP Wiggins. Pt. AAOx1, confused, on room air, breathing even an unlabored, no complaints of pain. No IV access, aware. Pt. reoriented to room, and instructed on use of call light and that nurse will return shortly. Isolation precautions discontinued, per day shift nurse. Bed is low and locked, side rails x2 up, and call light in reach.
[2019-11-24 20:00] VITALS: BP 146/63
--- NOTE | 2019-11-24 20:20 | Nephrology Progress Note ---
Assessment/Plan Plan #sepsis #fever #dementia #h/o myelodysplastic syndrome #HTN #HLD -stop IVF - add amlodipine 10 - add coreg 6.25mg BID - lasix 20mg daily - vanco and zosyn - follow cx - r/o COVID - serial trop - cardiology eval - avoid nephrotoxins - monitor mag and phos daily Subjective ROS Limited/Unobtainable: Yes Subjective WBC down to 2.5 hemoglobin stable Bp high wiill add coreg 6.25 BID Objective Objective Last 24 Hour Vital Signs Date Time Temp Pulse Resp B/P (MAP) Pulse Ox O2 Delivery O2 Flow Rate FiO2 11/24/19 16:00 61 11/24/19 16:00 98.7 73 20 160/86 (110) 97 11/24/19 12:00 98.8 75 19 165/79 (107) 97 11/24/19 12:00 72 11/24/19 10:00 78 11/24/19 09:22 90 133/79 11/24/19 09:00 Room Air 11/24/19 08:00 97.7 90 21 133/79 (97) 98 11/24/19 00:15 176/81 11/24/19 00:00 72 11/23/19 23:04 98.1 67 18 176/81 (112) 98 11/23/19 21:00 Room Air Intake and Output 11/23/19 11/24/19 19:00 07:00 Intake Total 120 ml Output Total 700 ml Balance -580 ml Intake Oral 120 ml Output Urine Total 700 ml Laboratory Tests 11/24/19 06:40: White Blood Count 2.5L, Red Blood Count 3.14L, Hemoglobin 10.0L, Hematocrit 28.8L, Mean Corpuscular Volume 92, Mean Corpuscular Hemoglobin 31.8H, Mean Corpuscular Hemoglobin Concent 34.6, Red Cell Distribution Width 11.2L, Platelet Count 107L, Mean Platelet Volume 5.6L, Neutrophils (%) (Auto) , Lymphocytes (%) (Auto) , Monocytes (%) (Auto) , Eosinophils (%) (Auto) , Basophils (%) (Auto) , Differential Total Cells Counted 100, Neutrophils % ( Manual) 61, Lymphocytes % (Manual) 25, Monocytes % (Manual) 14H, Eosinophils % ( Manual) 0, Basophils % (Manual) 0, Band Neutrophils 0, Platelet Estimate DecreasedL, Platelet Morphology Normal, Hypochromasia 1+, Anisocytosis 1+, Spherocytes 1+, D-Dimer 10.82H, Sodium Level 141, Potassium Level 3.5, Chloride Level 107, Carbon Dioxide Level 24, Anion Gap 10, Blood Urea Nitrogen 12, Creatinine 1.0, Estimat Glomerular Filtration Rate > 60, Glucose Level 97, Calcium Level 8.3L, Ferritin 436H, Total Bilirubin 0.9, Aspartate Amino Transf ( AST/SGOT) 32, Alanine Aminotransferase (ALT/SGPT) 11L, Alkaline Phosphatase 55, Lactate Dehydrogenase 191, Troponin I 0.152H, C-Reactive Protein, Quantitative 11.2H, Total Protein 6.6, Albumin 3.0L, Globulin 3.6, Albumin/Globulin Ratio 0.8L Height (Feet): 6 Height (Inches): 2.00 Weight (Pounds): 174 Objective General Appearance: no apparent distress, lethargic, confused Lines, tubes and drains: peripheral HEENT: normocephalic Neck: non-tender, normal alignment, supple, normal inspection Respiratory/Chest: chest wall non-tender, lungs clear Cardiovascular/Chest: normal peripheral pulses, normal rate, regular rhythm Abdomen: normal bowel sounds, non tender, soft, no organomegaly Extremities: normal range of motion, non-tender, normal inspection, no calf tenderness Skin Exam: normal pigmentation, warm/dry 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 Nov 24, 2019 20:20
[2019-11-24] MEDS: Ciprofloxacin 500mg tab ORAL SCH (20:56)
[2019-11-25] VITALS: BP 136/70
--- NOTE | 2019-11-25 02:30 | Consultation ---
DATE OF CONSULTATION: 11/24/2019 CONSULTING PHYSICIAN: Mil Mayo MD. HISTORY OF PRESENT ILLNESS: Patient is an 89-year-old male with a history of dementia as well as pancytopenia, hypertension, anxiety who has been admitted to the hospital due to pneumonia and sepsis. He was found to be a COVID-19 patient. He is in isolation room. Last night, he became severely agitated and was difficult to manage. Today during the evaluation, he is calm, manageable, and no behavior issues. PAST PSYCHIATRIC HISTORY: Dementia with behavior disturbance. PAST MEDICAL HISTORY: Hypertension, diabetes mellitus, dementia. ALLERGIES: No known drug allergies. MEDICATIONS: Patient has been taking memantine and Seroquel outside of the hospital. SUBSTANCE ABUSE HISTORY: No known history of illicit drug use or alcohol. MENTAL STATUS EXAMINATION: Patient is alert, disoriented. Mood is neutral, episodes of agitation. Affect is flat. Thought processes, there is a paucity of thought content. Thought content, no suicidal or homicidal ideation. Cognition is impaired. Insight and judgment is impaired. ASSESSMENT: Dementia with behavior disturbance. PLAN: 1. Haldol 5 mg every 6 hours p.r.n. 2. Seroquel 12.5 p.o. at bedtime. 3. Patient was seen in the presence of the nurse. Mil Mayo M.D. DR: POORNIMA JOB#: [id number] CC: LIU
[2019-11-25 04:00] VITALS: BP 121/82
--- NOTE | 2019-11-25 07:13 | NUR ---
HAND-OFF: Report given to MANDEEP Wiggins.
--- NOTE | 2019-11-25 07:13 | NUR ---
NURSE NOTES: Patient received from Grzegorz KAUFMAN. Patient in stable condition. On room air. Not in distress. No IV access at this time. Vital signs stable Comfortable in bed. Bed is in lowest position and locked. Bed alarm is on. Will continue plan of care.
[2019-11-25 08:00] VITALS: BP 159/61
[2019-11-25] MEDS: Aspirin EC 81mg tab ORAL SCH (08:33)
[2019-11-25] MEDS: Ciprofloxacin 500mg tab ORAL SCH ×2 (08:33→21:49)
--- NOTE | 2019-11-25 10:15 | NUR ---
RADIOLOGY DEPT., CHEST X-RAY DONE.-P.DYE
[2019-11-25 12:00] VITALS: BP 176/78
--- NOTE | 2019-11-25 12:32 | Internal Med Progress Note ---
Subjective Date of Service: Nov 25, 2019 Physician Name Preeti Alfaro Attending Physician Preeti Alfaro MD Current Medications Medications (Trade) Dose Ordered Sig/Javy Route PRN Reason Start Time Stop Time Status Last Admin Dose Admin Acetaminophen (Tylenol) 650 mg Q4H PRN ORAL Mild Pain (Pain Scale 1-3) 11/23/19 13:15 12/23/19 13:14 Amlodipine Besylate (Norvasc) 10 mg DAILY ORAL 11/24/19 09:00 12/24/19 08:59 11/25/19 08:33 Amoxicillin/ Clavulanate Potassium (Augmentin) 500 mg Q12HR ORAL 11/24/19 21:00 12/01/19 20:59 11/25/19 08:33 Aspirin (Ecotrin) 81 mg DAILY ORAL 11/23/19 13:30 01/07/20 13:29 11/25/19 08:33 Ciprofloxacin (Cipro 500mg tab) 500 mg Q12HR ORAL 11/24/19 21:00 12/01/19 20:59 11/25/19 08:33 Furosemide (Lasix) 20 mg DAILY ORAL 11/25/19 09:00 12/25/19 08:59 11/25/19 08:34 Haloperidol Lactate (Haldol) 5 mg Q6H PRN IM Agitation 11/23/19 21:00 01/07/20 17:44 11/24/19 00:41 Hydralazine HCl (Apresoline) 10 mg Q4H PRN IV SBP>160 11/23/19 13:15 02/21/20 13:14 11/25/19 11:21 Ondansetron HCl (Zofran) 4 mg Q6H PRN IVP Nausea & Vomiting 11/23/19 13:15 12/23/19 13:14 Quetiapine Fumarate (SEROqueL) 12.5 mg BEDTIME ORAL 11/25/19 21:00 01/09/20 20:59 Allergies: Coded Allergies: No Known Allergies (Unverified , 01/10/13) ROS Limited/Unobtainable: Yes Constitutional: Reports: no symptoms HEENT: Reports: no symptoms Cardiovascular: Reports: no symptoms Respiratory: Reports: cough, shortness of breath Gastrointestinal/Abdominal: Reports: no symptoms Genitourinary: Reports: no symptoms Neurologic/Psychiatric: Reports: anxiety, other - dementia, agitation All Systems: reviewed and negative except above Objective Last Vital Signs Date Time Temp Pulse Resp B/P (MAP) Pulse Ox O2 Delivery O2 Flow Rate FiO2 11/25/19 12:00 98.1 74 20 176/78 (110) 98 11/25/19 09:00 Room Air General Appearance: no apparent distress Neck: supple Cardiovascular: normal rate, regular rhythm, systolic murmur Respiratory/Chest: rhonchi - left Abdomen: normal bowel sounds, non tender, soft, no mass Neurologic: no motor/sensory deficits, responsive, disoriented Skin: warm/dry Microbiology Date/Time Source Procedure Growth Status 11/22/19 17:00 Blood Blood Culture - Preliminary NO GROWTH AFTER 48 HOURS Resulted 11/22/19 16:45 Blood Blood Culture - Preliminary NO GROWTH AFTER 48 HOURS Resulted 11/23/19 14:28 Nasopharynx Coronavirus COVID-19 PCR (NANETTE) - Final Complete 11/22/19 17:00 Nasopharynx Coronavirus COVID-19 PCR (NANETTE) - Final Complete Intake and Output 11/24/19 11/25/19 19:00 07:00 Intake Total 480 ml Balance 480 ml Intake Oral 480 ml # Voids 2 Assessment/Plan Status: stable, progressing Assessment/Plan IMPRESSION: FEVER right lung pneumonia vs mass SIRS elevated pro BNP rule out CHF elevated troponin pancytopenia dementia with psychotic behavior PLAN: TTE reviewed tele ruled out covid-[address] wo contrast lasix IV abx f/u cultures electrolyte replete as needed cardio f/u pulm eval psych f/u soft restraint as needed for safey and fall prevention asa BP control PREETI ALFARO MD INTERNAL MEDICINE [phone] TIME OF NOTE MAY NOT BE THE ACTUAL ENCOUNTER TIME FULL CODE TIME SPENT TODAY over 35 MINUTES Preeti Alfaro MD Nov 25, 2019 12:32
--- NOTE | 2019-11-25 13:06 | Diagnostic Imaging Report ---
Indication: Cough Technique: One view of the chest Comparison: 11/22/2019 Findings: Unchanged infiltrate versus mass in the right midlung periphery. The remainder of the lungs pleural spaces are clear. The heart size is now appears normal, probably due to better inspiration on the current exam. The aorta is evaluated tortuous and calcified. There are degenerative changes of left shoulder Impression: Unchanged right midlung infiltrate versus mass, since prior exam of 3 days earlier
--- NOTE | 2019-11-25 15:30 | NUR ---
NURSE NOTES: Another IV was inserted on left AC 20G. Patient removed it. Cleaned the site secured it with tape.
--- NOTE | 2019-11-25 15:31 | Diagnostic Imaging Report ---
Clinical Indication: Abnormal chest radiograph demonstrating possible mass. Cough, shortness of breath Technique: Spiral acquisitions obtained through the chest. No IV contrast utilized, reason not stated. Multiplanar reconstructions generated. Total dose length product 198 mGycm. CTDIvol(s) 4 mGy. Dose reduction achieved using automated exposure control Comparison: none Findings: Within the posterior inferior right upper lobe, there is a cluster of several irregular dense opacities. The largest of these measures approximately 19 x 9 x 19 mm. These are surrounded by a larger area of groundglass opacity. Other small nodules are present at the periphery. There are a few small cystic spaces in this area as well. Small bullae are seen in both lung apices. There is generalized mild pulmonary hyperinflation. There is a subpleural 7 mm nodule in the right lower lobe. This is slightly spiculated. There is a calcified subpleural nodule in the left costophrenic sulcus. No effusions or congestion demonstrated. The heart size is upper limits of normal. No pericardial effusion demonstrated. No mediastinal or hilar mass or adenopathy demonstrated. The thyroid is unremarkable. No axillary or chest wall mass or adenopathy. Included upper abdominal anatomy demonstrates multiple left lobe hepatic cyst. A granulomatous calcification is seen within the right hepatic lobe. Surgical clips are seen anterior to the upper pole of the right kidney moderate amount of stool is seen within colon. Impression: Cluster of irregular dense opacities in the posterior inferior right upper lobe, surrounded by a large area of groundglass opacity. Findings may represent an area of organizing pneumonia. Findings could also represent post inflammatory changes. Neoplasm as etiology of any of the solid opacities excludable. Recommend radiographic follow-up to resolution. 7 mm subpleural nodule in the right lower lobe. This could be postinflammatory or neoplastic. Recommend short interval follow up at 6-12 months to subsequent follow up at 18-24 months. COPD changes Evidence of old granulomatous disease within the left lower lobe and liver Possible constipation Incidental findings of left lobe liver cysts, evidence of prior retroperitoneal surgery The CT scanner at [facility] is accredited by the [employer] and the scans are performed using protocols designed to limit radiation exposure to as low as reasonably achievable to attain images of sufficient resolution adequate for diagnostic evaluation.
[2019-11-25 16:00] VITALS: BP 115/64
--- NOTE | 2019-11-25 16:34 | NUR ---
ST NOTE Swallow Status. Patient is on a regular solids with thin liquids diet. When ADMINISTRATIVE STAFF SUPERVISOR attempted to see the Patient, Patient was out of bed, with droplets of blood seen on Patient's floor. ADMINISTRATIVE STAFF SUPERVISOR made RN aware Patient is out of bed going to bathroom. -Per RN, no significant overt s/s of aspiration with PO medications, none noted during meals. Concern for Patient's ability to meet adequate PO given recent 50% intake during meals. However, RN states this is partially attributed to Patient's desire to eat small meals throughout the day versus 3 large meals. -ADMINISTRATIVE STAFF SUPERVISOR plans to f/u with Patient x1 for diet tolerance at mealtime to assure safety with entire meal of current diet; Also ,to provide Patient with education and training on compensatory strategies with Dementia. -ADMINISTRATIVE STAFF SUPERVISOR will place papers in Patient's chart to be given to Patient's primary caregiver. -Continue current diet, ADMINISTRATIVE STAFF SUPERVISOR plans to f/u. ADMINISTRATIVE STAFF SUPERVISOR [phone]
--- NOTE | 2019-11-25 18:01 | Infectious Diseases Prog Note ---
Assessment/Plan Assessment/Plan ASSESSMENT AND PLAN: 1. pna, sepsis, fevers, pancytopenia, covid-19 testing negative x 2 - augmentin plus ciprofloxacin - day # 3 abx - refuses iv abx - fevers better - clinically stable - monitor labs and chest x-ray as indicated 2. The patient has history of diabetes. 3. Hypertension. 4. Blood sugar and blood pressure treatment per primary care team for diabetes and hypertension. 5. Dementia. 6. Aspiration risk. 7. Dysplastic syndrome. 8. Pancytopenia. 9. Anemia, thrombocytopenia, leukopenia. 10. Continue treatment per primary consultants. 11. No known drug allergies. 12. Social history is negative. 13. Family history is noncontributory. 14. MAR was noted. 15. Case discussed with RN. 16. Continue COVID-19 virus isolation, pending second testing result. Subjective Constitutional: Reports: fatigue; Denies: fever HEENT: Reports: congestion - less Respiratory: Reports: shortness of breath - less Cardiovascular: Denies: chest pain Gastrointestinal/Abdominal: Denies: nausea, vomiting, diarrhea, constipation Genitourinary: Denies: dysuria, hematuria, frequency Neurologic: Denies: headache Psychiatric: Denies: depression Skin: Denies: rash Hematologic: Denies: bleeding Musculoskeletal: Denies: pain Allergies: Coded Allergies: No Known Allergies (Unverified , 01/10/13) Objective Vital Signs Last 24 Hour Vital Signs Date Time Temp Pulse Resp B/P (MAP) Pulse Ox O2 Delivery O2 Flow Rate FiO2 11/25/19 16:00 81 11/25/19 16:00 99.3 81 20 115/64 (81) 98 11/25/19 12:00 98.1 74 20 176/78 (110) 98 11/25/19 12:00 75 11/25/19 11:21 176/78 11/25/19 09:00 Room Air 11/25/19 08:33 81 159/61 11/25/19 08:00 76 11/25/19 08:00 98.6 81 20 159/61 (93) 98 11/25/19 04:00 73 11/25/19 04:00 97.1 68 18 121/82 (95) 97 11/25/19 00:00 67 11/25/19 00:00 98.1 67 18 136/70 (92) 98 11/24/19 21:00 Room Air 11/24/19 20:00 98.0 66 19 146/63 (90) 99 11/24/19 20:00 51 Height (Feet): 6 Height (Inches): 2.00 Weight (Pounds): 174 General Appearance: no acute distress HEENT: normocephalic, atraumatic, anicteric, mucous membranes moist Respiratory/Chest: no respiratory distress, no accessory muscle use, crackles/ rales, rhonchi - bilaterally Cardiovascular: normal rate, regular rhythm, no gallop/murmur, no JVD Abdomen: normal bowel sounds, soft, non tender, no organomegaly, non distended Genitourinary: other - no diallo Extremities: no cyanosis, no clubbing Skin: no rash Neurologic/Psychiatric: bottom brusher II-XII grossly normal, alert, oriented x 3, responsive Lymphatic: no neck adenopathy Musculoskeletal: no effusion Objective CT chest: Impression: Cluster of irregular dense opacities in the posterior inferior right upper lobe, surrounded by a large area of groundglass opacity. Findings may represent an area of organizing pneumonia. Findings could also represent post inflammatory changes. Neoplasm as etiology of any of the solid opacities excludable. Recommend radiographic follow-up to resolution. 7 mm subpleural nodule in the right lower lobe. This could be postinflammatory or neoplastic. Recommend short interval follow up at 6-12 months to subsequent follow up at 18-24 months. COPD changes Evidence of old granulomatous disease within the left lower lobe and liver Possible constipation Incidental findings of left lobe liver cysts, evidence of prior retroperitoneal surgery Chest - 11/25/19 - Procedure: XRAY Chest 1v Indication: Cough Technique: One view of the chest Comparison: 11/22/2019 Findings: Unchanged infiltrate versus mass in the right midlung periphery. The remainder of the lungs pleural spaces are clear. The heart size is now appears normal, probably due to better inspiration on the current exam. The aorta is evaluated tortuous and calcified. There are degenerative changes of left shoulder Impression: Unchanged right midlung infiltrate versus mass, since prior exam of 3 days earlier Microbiology Date/Time Source Procedure Growth Status 11/22/19 17:00 Blood Blood Culture - Preliminary NO GROWTH AFTER 48 HOURS Resulted 11/23/19 14:28 Nasopharynx Coronavirus COVID-19 PCR ([facility]) - Final Complete Microbiology Date/Time Source Procedure Growth Status 11/23/19 14:28 Nasopharynx Coronavirus COVID-19 PCR ([facility]) - Final Complete Labs Test 11/22/19 22:35 11/23/19 05:36 11/24/19 06:40 Troponin I 0.110 ng/mL (0.000-0.056) 0.067 ng/mL (0.000-0.056) 0.152 ng/mL (0.000-0.056) White Blood Count 3.9 K/UL (4.8-10.8) 2.5 K/UL (4.8-10.8) Red Blood Count 3.08 M/UL (4.70-6.10) 3.14 M/UL (4.70-6.10) Hemoglobin 10.0 G/DL (14.2-18.0) 10.0 G/DL (14.2-18.0) Hematocrit 28.7 % (42.0-52.0) 28.8 % (42.0-52.0) Mean Corpuscular Volume 93 FL (80-99) 92 FL (80-99) Mean Corpuscular Hemoglobin 32.4 PG (27.0-31.0) 31.8 PG (27.0-31.0) Mean Corpuscular Hemoglobin Concent 34.8 G/DL (32.0-36.0) 34.6 G/DL (32.0-36.0) Red Cell Distribution Width 11.3 % (11.6-14.8) 11.2 % (11.6-14.8) Platelet Count 92 K/UL (150-450) 107 K/UL (150-450) Mean Platelet Volume 5.5 FL (6.5-10.1) 5.6 FL (6.5-10.1) Neutrophils (%) (Auto) % (45.0-75.0) % (45.0-75.0) Lymphocytes (%) (Auto) % (20.0-45.0) % (20.0-45.0) Monocytes (%) (Auto) % (1.0-10.0) % (1.0-10.0) Eosinophils (%) (Auto) % (0.0-3.0) % (0.0-3.0) Basophils (%) (Auto) % (0.0-2.0) % (0.0-2.0) Differential Total Cells Counted 100 100 Neutrophils % (Manual) 69 % (45-75) 61 % (45-75) Lymphocytes % (Manual) 24 % (20-45) 25 % (20-45) Monocytes % (Manual) 7 % (1-10) 14 % (1-10) Eosinophils % (Manual) 0 % (0-3) 0 % (0-3) Basophils % (Manual) 0 % (0-2) 0 % (0-2) Band Neutrophils 0 % (0-8) 0 % (0-8) Platelet Estimate Decreased Decreased Platelet Morphology Normal Normal Red Blood Cell Morphology Normal Sodium Level 141 MMOL/L (136-145) 141 MMOL/L (136-145) Potassium Level 3.7 MMOL/L (3.5-5.1) 3.5 MMOL/L (3.5-5.1) Chloride Level 106 MMOL/L (98-107) 107 MMOL/L (98-107) Carbon Dioxide Level 26 MMOL/L (21-32) 24 MMOL/L (21-32) Anion Gap 9 mmol/L (5-15) 10 mmol/L (5-15) Blood Urea Nitrogen 14 mg/dL (7-18) 12 mg/dL (7-18) Creatinine 1.0 MG/DL (0.55-1.30) 1.0 MG/DL (0.55-1.30) Estimat Glomerular Filtration Rate > 60 mL/min (>60) > 60 mL/min (>60) Glucose Level 105 MG/DL (74-106) 97 MG/DL (74-106) Calcium Level 8.4 MG/DL (8.5-10.1) 8.3 MG/DL (8.5-10.1) Magnesium Level 2.3 MG/DL (1.8-2.4) Alkaline Phosphatase 56 U/L (46-116) 55 U/L (46-116) Pro-B-Type Natriuretic Peptide 9667 pg/mL (0-125) Hypochromasia 1+ Anisocytosis 1+ Spherocytes 1+ D-Dimer 10.82 mg/L FEU (0.00-0.49) Ferritin 436 NG/ML (8-388) Total Bilirubin 0.9 MG/DL (0.2-1.0) Aspartate Amino Transf (AST/SGOT) 32 U/L (15-37) Alanine Aminotransferase (ALT/SGPT) 11 U/L (12-78) Lactate Dehydrogenase 191 U/L (81-234) C-Reactive Protein, Quantitative 11.2 mg/dL (0.00-0.90) Total Protein 6.6 G/DL (6.4-8.2) Albumin 3.0 G/DL (3.4-5.0) Globulin 3.6 g/dL Albumin/Globulin Ratio 0.8 (1.0-2.7) Current Medications Medications (Trade) Dose Ordered Sig/Javy Route PRN Reason Start Time Stop Time Status Last Admin Dose Admin Acetaminophen (Tylenol) 650 mg Q4H PRN ORAL Mild Pain (Pain Scale 1-3) 11/23/19 13:15 12/23/19 13:14 Amlodipine Besylate (Norvasc) 10 mg DAILY ORAL 11/24/19 09:00 12/24/19 08:59 11/25/19 08:33 Amoxicillin/ Clavulanate Potassium (Augmentin) 500 mg Q12HR ORAL 11/24/19 21:00 12/01/19 20:59 11/25/19 08:33 Aspirin (Ecotrin) 81 mg DAILY ORAL 11/23/19 13:30 01/07/20 13:29 11/25/19 08:33 Carvedilol (Coreg) 6.25 mg EVERY 12 HOURS ORAL 11/25/19 21:00 12/25/19 20:59 Ciprofloxacin (Cipro 500mg tab) 500 mg Q12HR ORAL 11/24/19 21:00 12/01/19 20:59 11/25/19 08:33 Furosemide (Lasix) 20 mg DAILY ORAL 11/25/19 09:00 12/25/19 08:59 11/25/19 08:34 Haloperidol Lactate (Haldol) 5 mg Q6H PRN IM Agitation 11/23/19 21:00 01/07/20 17:44 11/24/19 00:41 Hydralazine HCl (Apresoline) 10 mg Q4H PRN IV SBP>160 11/23/19 13:15 02/21/20 13:14 11/25/19 11:21 Ondansetron HCl (Zofran) 4 mg Q6H PRN IVP Nausea & Vomiting 11/23/19 13:15 12/23/19 13:14 Quetiapine Fumarate (SEROqueL) 12.5 mg BEDTIME ORAL 11/25/19 21:00 01/09/20 20:59 Darya Fagan MD Nov 25, 2019 18:01
--- NOTE | 2019-11-25 19:31 | NUR ---
HAND-OFF: Report given to Mignon/BONI, Patient is in stable condition. Endorsed plan of care.
--- NOTE | 2019-11-25 19:51 | NUR ---
NURSE NOTES: RECEIVED PATIENT LYING IN BED, AWAKE, ALERT/ORIENTED TO PERSON, CONFUSED, REALITY ORIENTATION PROVIDED DURING ASSESSMENT, REQUIRE REPETITIVE INTERVENTIONS, DENIES PAIN. NO SIGNS AND SYMPTOMS OF ACUTE CARDIO RESPIRATORY DISTRESS/SHORTNESS OF BREATH, NO PERIPHERAL EDEMA NOTED, BAND SPLITTER INTACT. NO IV ACCESS NOTED. CONTINENT, BATHROOM PRIVILEGES WITH ASSISTANCE, NO COMPLAINTS OF GI DISCOMFORT, NO N/V/D. SIDE RAILS UP X3, BED IN LOWEST POSITION FOR SAFETY, ENCOURAGED PATIENT TO UTILIZE CALL LIGHT FOR ASSISTANCE, VERBALIZED UNDERSTANDING. FREQUENT ROUNDING FOR SAFETY/NEEDS. NAD.
[2019-11-25 20:00] VITALS: BP 143/69
[2019-11-25] MEDS: Augmentin 875mg Tab ORAL SCH (21:49)
[2019-11-25] MEDS: Carvedilol 6.25mg Tab ORAL SCH (21:50)
--- NOTE | 2019-11-25 23:00 | Consultation ---
DATE OF CONSULTATION: 11/25/2019 PULMONARY CONSULTATION HISTORY OF PRESENT ILLNESS: This is an 89-year-old male brought to the hospital with fever. He was admitted two days ago. The patient unable to provide any further history. He was noted to be demented. The patient was seen and evaluated by Infectious Diseases specialist. 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 His x-ray chest showed a right mid lung infiltrate versus mass. The patient is a known diabetic and hypertensive as well. He has been started on antibiotics. So far, his cultures have been negative. His COVID-19 PCR was negative x2. CT chest was also obtained earlier today which showed there was evidence of opacities in the right upper lobe with bullae in both apices. This represents a pneumonic process. However, a neoplasm cannot be excluded. CURRENT MEDICATIONS: Includes oral Augmentin and Cipro as well as blood pressure medications. REVIEW OF SYSTEMS: Not reliable. PHYSICAL EXAMINATION: GENERAL: Reveals an 89-year-old male. VITAL SIGNS: Blood pressure 170/70, heart rate 84, respiratory rate 18, afebrile. HEENT: Unremarkable. CHEST: Clear breath sounds. ABDOMEN: Soft. EXTREMITIES: There is no edema. LABORATORY AND DIAGNOSTIC DATA: Lab testing shows leukopenia with hemoglobin of 10, platelet count is 107,000. Chemistries are notable for calcium 8.3, otherwise normal CBC and BMP. Troponin borderline. D-dimer is elevated. Urinalysis shows few wbc's. IMPRESSION: 1. Probable right lung pneumonia. 2. Dementia. 3. Hypertension. 4. Diabetes mellitus. DISCUSSION: I am not certain about the diabetes diagnosis as sugars have been normal without therapy. He is hypertensive and has dementia. He is on antibiotics. At this point, it appears that he has a pneumonic process in the right upper lobe. We will suggest followup chest in one months' time. We will follow in hospital as before til discharge. Recommend discharge and outpatient evaluation for resolution of pneumonia. Emilio Patterson M.D. DR: Chichi JOB#: [id number] CC:
--- NOTE | 2019-11-25 23:22 | Psych Consult Progress Note ---
Psychiatry Progress Note Psychiatry Progress Note Medications Current Medications Medications (Trade) Dose Ordered Sig/Javy Route PRN Reason Start Time Stop Time Status Last Admin Dose Admin Acetaminophen (Tylenol) 650 mg Q4H PRN ORAL Mild Pain (Pain Scale 1-3) 11/23/19 13:15 12/23/19 13:14 Amlodipine Besylate (Norvasc) 10 mg DAILY ORAL 11/24/19 09:00 12/24/19 08:59 11/25/19 08:33 Amoxicillin/ Clavulanate Potassium (Augmentin) 875 mg Q12HR ORAL 11/25/19 21:00 12/02/19 20:59 11/25/19 21:49 Aspirin (Ecotrin) 81 mg DAILY ORAL 11/23/19 13:30 01/07/20 13:29 11/25/19 08:33 Carvedilol (Coreg) 6.25 mg EVERY 12 HOURS ORAL 11/25/19 21:00 12/25/19 20:59 11/25/19 21:50 Ciprofloxacin (Cipro 500mg tab) 500 mg Q12HR ORAL 11/24/19 21:00 12/01/19 20:59 11/25/19 21:49 Furosemide (Lasix) 20 mg DAILY ORAL 11/25/19 09:00 12/25/19 08:59 11/25/19 08:34 Haloperidol Lactate (Haldol) 5 mg Q6H PRN IM Agitation 11/23/19 21:00 01/07/20 17:44 11/24/19 00:41 Hydralazine HCl (Apresoline) 10 mg Q4H PRN IV SBP>160 11/23/19 13:15 02/21/20 13:14 11/25/19 11:21 Ondansetron HCl (Zofran) 4 mg Q6H PRN IVP Nausea & Vomiting 11/23/19 13:15 12/23/19 13:14 Quetiapine Fumarate (SEROqueL) 12.5 mg BEDTIME ORAL 11/25/19 21:00 01/09/20 20:59 11/25/19 21:49 Neurological/Psychiatric: Reports: anxiety, depressed, emotional problems Allergies: Coded Allergies: No Known Allergies (Unverified , 01/10/13) Objective Data Height (Feet): 6 Height (Inches): 2.00 Weight (Pounds): 174 General Appearance: no apparent distress, alert, confused, agitated Appearance: no abnormalities noted Behavior Mannerisms: good eye contact Mental Status Exam - Affect: blunted Mental Status Exam - Mood: anxious Speech: clear Mental Status Exam - Thought P: loose association Mental Status Exam - Suicidal: not present Assessment/Plan Status: stable, progressing Assessment/Plan: Dementia with behavior disturbance. PLAN: 1. Haldol 5 mg every 6 hours p.r.n. 2. Seroquel 12.5 p.o. at bedtime. 3. Patient was seen in the presence of the nurse. Mil Mayo MD Nov 25, 2019 23:22
--- NOTE | 2019-11-25 23:44 | NUR ---
NURSE NOTES: RESTING WELL, NO SIGNS AND SYMPTOMS OF DISTRESS, WILL CONTINUE TO MONITOR.
[2019-11-26] VITALS: BP 157/77
[2019-11-26] MEDS: Haloperidol 5mg/ml Inj IM PRN (02:18)
--- NOTE | 2019-11-26 03:51 | NUR ---
NURSE NOTES: EYES CLOSED ON ROUNDS, APPEAR TO BE RESTING COMFORTABLY. NAD.
[2019-11-26 04:00] VITALS: BP 159/72
--- NOTE | 2019-11-26 07:02 | NUR ---
NURSE NOTES: PATIENT COMBATIVE, KICKING AND SWINGING AT NURSES WITH BOTH FIST AND FEET, THREATENING TO KILL STAFF ON MULTIPLE OCCASIONS; ATTEMPTED TO DE ESCALATE BEHAVIOR UNSUCCESSFULLY; LEFT MESSAGE FOR DR. VALERIO REGARDING BEHAVIOR-BILATERAL WRIST RESTRAINTS APPLIED AT 0700 TO PREVENT PATIENT FROM HARMING SELF AND STAFF, WILL CONTINUE TO MONITOR UNTIL FURTHER ORDERS FROM .
[2019-11-26 07:17] LABS: HEMATOCRIT 32.4 % (42.0-52.0); HEMOGLOBIN 10.4 G/DL (14.2-18.0); MEAN CORPUSCULAR VOLUME 99 FL (80-99); PLATELET COUNT 118 K/UL (150-450); RED BLOOD COUNT 3.27 M/UL (4.70-6.10); RED CELL DISTRIBUTION WIDTH 11.4 % (11.6-14.8)
[2019-11-26 07:29] LABS: ALANINE AMINOTRANSFERASE 17 U/L (12-78); ALBUMIN 3.1 G/DL (3.4-5.0); ALBUMIN/GLOBULIN RATIO 0.8 (1.0-2.7); ALKALINE PHOSPHATASE 59 U/L (46-116); ANION GAP 8 mmol/L (5-15); ASPARTATE AMINO TRANSFERASE 30 U/L (15-37); BLOOD UREA NITROGEN 10 mg/dL (7-18); CARBON DIOXIDE 28 MMOL/L (21-32); CHLORIDE 105 MMOL/L (98-107); CREATININE 1.2 MG/DL (0.55-1.30); PHOSPHORUS 3.2 MG/DL (2.5-4.9); POTASSIUM 3.4 MMOL/L (3.5-5.1); SODIUM 141 MMOL/L (136-145)
--- NOTE | 2019-11-26 07:30 | NUR ---
HAND-OFF: Report given to MANDEEP ABRAMS.
--- NOTE | 2019-11-26 07:30 | NUR ---
NURSE NOTES: Received report from MANDEEP Crow. Patient awake, alert, oriented x1. Speech clear. No signs of distress or pain. Bilateral soft wrist restraints in place with 2 fingerbreathds space, radial pulses palpable, no skin breakdown observed. Lungs clear to auscultate bilaterally, breathing is unlabored. L forearm 18 g IV saline lock, intact, no redness. Bed low and locked, side rails x3 raised, call light in reach, fall education provided.
[2019-11-26 07:42] LABS: WHITE BLOOD COUNT 1.9 K/UL (4.8-10.8)
[2019-11-26 08:00] VITALS: BP 158/77
[2019-11-26] MEDS: Aspirin EC 81mg tab ORAL SCH (08:37)
[2019-11-26] MEDS: Carvedilol 6.25mg Tab ORAL SCH ×2 (08:37→21:09)
[2019-11-26] MEDS: Augmentin 875mg Tab ORAL SCH ×2 (08:38→21:09)
[2019-11-26] MEDS: Ciprofloxacin 500mg tab ORAL SCH ×2 (08:39→21:09)
--- NOTE | 2019-11-26 09:06 | NUR ---
CASE MANAGEMENT: REVIEW 11/26/19 SI:+ TROP ACS . ENCEPHALOPATHY . UTI . SINUS RHYTHM WITH BBB/PVC'S . DM . HTN LUNG MASS VS PNA 98.7 75 20 159/72 96% ON RA WBC 1.9 BNP 5056 K+3.4 IS:AMOXICILLIN PO BID CIPRO PO BID LASIX PO QD COREG PO BID SEROQUEL PO QHS NORVASC PO QD HYDRALAZINE Q4H/PRN HALDOL Q6HR/PRN ASPIRIN PO QD CT Chest no Contrast-7 mm subpleural nodule in the right lower lobe. This could be postinflammatory or neoplastic. Recommend short interval follow up at 6-12 months to subsequent follow up at 18-24 months.Incidental findings of left lobe liver cysts, evidence of prior retroperitoneal surgery X-RAY Chest 1v-Unchanged right midlung infiltrate versus mass, \: 2E TELE UNIT DCP:HOME WHEN STABLE PLAN: MONITOR BEHAVIOR Q2HR NEURO CHECKS F/U WITH PULMO F/U WITH PSYCH MONITOR WBC ~TRENDING DOWN
--- NOTE | 2019-11-26 09:46 | NUR ---
NURSE NOTES: Left message to Dr. Armando's office and updated MD for critical lab result for WBC from 2.5 to 1.9; and Potassium 3.4. Awaiting for response.
--- NOTE | 2019-11-26 11:08 | Pulmonology Progress Note ---
Subjective ROS Limited/Unobtainable: Yes Interval Events: None new Constitutional: Reports: fatigue; Denies: fever HEENT: Repors: no symptoms Respiratory: Reports: no symptoms Gastrointestinal/Abdominal: Denies: nausea, vomiting, diarrhea, constipation Genitourinary: Reports: no symptoms Neurologic: Reports: no symptoms Psychiatric: Reports: no symptoms; Denies: depression Skin: Denies: rash Musculoskeletal: Denies: pain Allergies: Coded Allergies: No Known Allergies (Unverified , 01/10/13) All Systems: reviewed and negative except above Objective Last 24 Hour Vital Signs Date Time Temp Pulse Resp B/P (MAP) Pulse Ox O2 Delivery O2 Flow Rate FiO2 11/26/19 09:00 Room Air 11/26/19 08:38 72 158/78 11/26/19 08:37 72 158/78 11/26/19 08:00 98.1 65 20 158/77 (104) 98 11/26/19 08:00 62 11/26/19 04:00 Room Air 11/26/19 04:00 98.7 75 20 159/72 (101) 96 11/26/19 04:00 72 11/26/19 00:00 98.1 60 20 157/77 (103) 99 11/26/19 00:00 103 11/26/19 00:00 Room Air 11/25/19 21:50 74 156/78 11/25/19 21:00 Room Air 11/25/19 20:00 78 11/25/19 20:00 98.9 84 20 143/69 (93) 97 11/25/19 16:00 81 11/25/19 16:00 99.3 81 20 115/64 (81) 98 11/25/19 12:00 98.1 74 20 176/78 (110) 98 11/25/19 12:00 75 11/25/19 11:21 176/78 Intake and Output 11/25/19 11/26/19 19:00 07:00 Intake Total 480 ml 240 ml Balance 480 ml 240 ml Intake Oral 480 ml 240 ml # Voids 2 2 General Appearance: no acute distress Respiratory: chest wall non-tender, lungs clear Cardiovascular: normal peripheral pulses Abdomen: normal bowel sounds Extremities: no cyanosis Microbiology Date/Time Source Procedure Growth Status 11/23/19 14:28 Nasopharynx Coronavirus COVID-19 PCR ([facility]) - Final Complete Laboratory Tests 11/26/19 04:20: White Blood Count 1.9*L, Red Blood Count 3.27L, Hemoglobin 10.4L, Hematocrit 32.4L, Mean Corpuscular Volume 99, Mean Corpuscular Hemoglobin 31.7H, Mean Corpuscular Hemoglobin Concent 32.0, Red Cell Distribution Width 11.4L, Platelet Count 118L, Mean Platelet Volume 6.6, Neutrophils (%) (Auto) , Lymphocytes (%) (Auto) , Monocytes (%) (Auto) , Eosinophils (%) (Auto) , Basophils (%) (Auto) , Differential Total Cells Counted 100, Neutrophils % ( Manual) 54, Lymphocytes % (Manual) 29, Monocytes % (Manual) 14H, Eosinophils % ( Manual) 2, Basophils % (Manual) 1, Band Neutrophils 0, Platelet Estimate DecreasedL, Platelet Morphology Normal, Hypochromasia 1+, Anisocytosis 1+, Sodium Level 141, Potassium Level 3.4L, Chloride Level 105, Carbon Dioxide Level 28, Anion Gap 8, Blood Urea Nitrogen 10, Creatinine 1.2, Estimat Glomerular Filtration Rate > 60, Glucose Level 99, Calcium Level 9.0, Phosphorus Level 3.2, Magnesium Level 2.2, Total Bilirubin 1.0, Aspartate Amino Transf (AST/SGOT) 30, Alanine Aminotransferase (ALT/SGPT) 17, Alkaline Phosphatase 59, Pro-B-Type Natriuretic Peptide 5056H, Total Protein 6.8, Albumin 3.1L, Globulin 3.7, Albumin/Globulin Ratio 0.8L, Vitamin B12 Level 585, Vitamin D 25-Hydroxy [Pending], 25-Hydroxy Vitamin D2 [Pending], 25-Hydroxy Vitamin D3 [Pending] Current Medications Medications (Trade) Dose Ordered Sig/Javy Route PRN Reason Start Time Stop Time Status Last Admin Dose Admin Acetaminophen (Tylenol) 650 mg Q4H PRN ORAL Mild Pain (Pain Scale 1-3) 11/23/19 13:15 12/23/19 13:14 Amlodipine Besylate (Norvasc) 10 mg DAILY ORAL 11/24/19 09:00 12/24/19 08:59 11/26/19 08:38 Amoxicillin/ Clavulanate Potassium (Augmentin) 875 mg Q12HR ORAL 11/25/19 21:00 12/02/19 20:59 11/26/19 08:38 Aspirin (Ecotrin) 81 mg DAILY ORAL 11/23/19 13:30 01/07/20 13:29 11/26/19 08:37 Carvedilol (Coreg) 6.25 mg EVERY 12 HOURS ORAL 11/25/19 21:00 12/25/19 20:59 11/26/19 08:37 Ciprofloxacin (Cipro 500mg tab) 500 mg Q12HR ORAL 11/24/19 21:00 12/01/19 20:59 11/26/19 08:39 Furosemide (Lasix) 20 mg DAILY ORAL 11/25/19 09:00 12/25/19 08:59 11/26/19 08:38 Haloperidol Lactate (Haldol) 5 mg Q6H PRN IM Agitation 11/23/19 21:00 01/07/20 17:44 11/26/19 02:18 Hydralazine HCl (Apresoline) 10 mg Q4H PRN IV SBP>160 11/23/19 13:15 02/21/20 13:14 11/25/19 11:21 Ondansetron HCl (Zofran) 4 mg Q6H PRN IVP Nausea & Vomiting 11/23/19 13:15 12/23/19 13:14 Quetiapine Fumarate (SEROqueL) 12.5 mg BEDTIME ORAL 11/25/19 21:00 01/09/20 20:59 11/25/19 21:49 Assessment/Plan Assessment/Plan IMPRESSION: 1. Probable right lung pneumonia. 2. Dementia. 3. Hypertension. DISCUSSION: Abx per ID Oxygen and pulmonary hygiene Priscilla Avila Omar Syed MD Nov 26, 2019 11:08
--- NOTE | 2019-11-26 11:56 | NUR ---
ST NOTE SWALLOW STATUS Patient seen at bedside, current diet texture is regular with thin liquids via 1 to 1 careful hand feeding. VITALS ON ROOM AIR: HR: 72 RR: 20 SP02: 98% ---- 11/25/[address] CHEST NO CONTRAST: Impression: Cluster of irregular dense opacities in the posterior inferior right upper lobe, surrounded by a large area of groundglass opacity. Findings may represent an area of organizing pneumonia. Findings could also represent post inflammatory changes. Neoplasm as etiology of any of the solid opacities excludable. Recommend radiographic follow-up to resolution. 7 mm subpleural nodule in the right lower lobe. This could be postinflammatory or neoplastic. Recommend short interval follow up at 6-12 months to subsequent follow up at 18-24 months. COPD changes. Evidence of old granulomatous disease within the left lower lobe and liver. Possible constipation. Incidental findings of left lobe liver cysts, evidence of prior retroperitoneal surgery. ---- -Per RN, Patient does exhibit mild pocketing with meals which RN needs to provide Patient verbal cues to clear. No overt s/s of aspiration noted during medication management. -Given thin liquids via cup sip and straw, no overt s/s of aspiration, vocal quality remained clear. [employer] placed educational packet regarding caregiving with dementia in Patient's hard chart to be given to family upon Patient discharge. PLAN 1. Patient downgraded to Mechanical soft-chopped with thin liquids. Continue 1 to 1 careful hand feeding, patient benefits from cues to re-swallow. 2. [employer] plans to f/u for diet tolerance s/p downgrade. 3. Continue providing oral hygiene BID. [employer] made RN aware of changes to diet texture, made aware of educational packet in hard chart, and aspiration precaution sign updated and posted above Patient's HOB. -[employer] will continue to f/u [employer] [id number]
[2019-11-26 12:00] VITALS: BP 126/52
--- NOTE | 2019-11-26 12:58 | Cardiology Progress Note ---
Assessment/Plan Status: stable Assessment/Plan Assessment/Plan Status: stable Assessment/Plan: ASSESSMENT Fever unknown origin lung mass cardiomegaly Rule out COVID Troponin elevation PLAN: Serial EKG/Troponin Monitor on telemetry Empiric Abx Echocardiogram with normal LV function but elevated filling pressures grade 2 diastolic dysfunction and pulmonary hypertension Continue diuresis to lower LVEDP and PAP Continue Norvasc for hypertension Subjective Cardiovascular: Reports: no symptoms Respiratory: Reports: no symptoms Gastrointestinal/Abdominal: Reports: no symptoms Genitourinary: Reports: no symptoms Subjective No acute events, TTE with normal LV function and moderate TR pulmonary hypertension and elevated right sided pressures Objective Last 24 Hour Vital Signs Date Time Temp Pulse Resp B/P (MAP) Pulse Ox O2 Delivery O2 Flow Rate FiO2 11/26/19 12:00 57 11/26/19 09:00 Room Air 11/26/19 08:38 72 158/78 11/26/19 08:37 72 158/78 11/26/19 08:00 98.1 65 20 158/77 (104) 98 11/26/19 08:00 62 11/26/19 04:00 Room Air 11/26/19 04:00 98.7 75 20 159/72 (101) 96 11/26/19 04:00 72 11/26/19 00:00 98.1 60 20 157/77 (103) 99 11/26/19 00:00 103 11/26/19 00:00 Room Air 11/25/19 21:50 74 156/78 11/25/19 21:00 Room Air 11/25/19 20:00 78 11/25/19 20:00 98.9 84 20 143/69 (93) 97 11/25/19 16:00 81 11/25/19 16:00 99.3 81 20 115/64 (81) 98 General Appearance: no apparent distress, alert EENT: PERRL/EOMI, normal ENT inspection, TMs normal, pharynx normal Neck: non-tender, normal alignment, supple, normal inspection, no JVD Rhythm: NSR Cardiovascular: normal peripheral pulses, normal rate, regular rhythm Respiratory/Chest: chest wall non-tender, lungs clear, normal breath sounds Abdomen: normal bowel sounds, non tender, soft Extremities: normal range of motion, non-tender, normal inspection Neurologic: delivery of shopping 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 II-XII grossly normal, no motor/sensory deficits Intake and Output 11/25/19 11/26/19 18:59 06:59 Intake Total 480 ml 240 ml Balance 480 ml 240 ml Intake Oral 480 ml 240 ml # Voids 2 2 Laboratory Tests Test 11/26/19 04:20 White Blood Count 1.9 K/UL (4.8-10.8) *L Red Blood Count 3.27 M/UL (4.70-6.10) L Hemoglobin 10.4 G/DL (14.2-18.0) L Hematocrit 32.4 % (42.0-52.0) L Mean Corpuscular Volume 99 FL (80-99) Mean Corpuscular Hemoglobin 31.7 PG (27.0-31.0) H Mean Corpuscular Hemoglobin Concent 32.0 G/DL (32.0-36.0) Red Cell Distribution Width 11.4 % (11.6-14.8) L Platelet Count 118 K/UL (150-450) L Mean Platelet Volume 6.6 FL (6.5-10.1) Neutrophils (%) (Auto) % (45.0-75.0) Lymphocytes (%) (Auto) % (20.0-45.0) Monocytes (%) (Auto) % (1.0-10.0) Eosinophils (%) (Auto) % (0.0-3.0) Basophils (%) (Auto) % (0.0-2.0) Differential Total Cells Counted 100 Neutrophils % (Manual) 54 % (45-75) Lymphocytes % (Manual) 29 % (20-45) Monocytes % (Manual) 14 % (1-10) H Eosinophils % (Manual) 2 % (0-3) Basophils % (Manual) 1 % (0-2) Band Neutrophils 0 % (0-8) Platelet Estimate Decreased L Platelet Morphology Normal Hypochromasia 1+ Anisocytosis 1+ Sodium Level 141 MMOL/L (136-145) Potassium Level 3.4 MMOL/L (3.5-5.1) L Chloride Level 105 MMOL/L (98-107) Carbon Dioxide Level 28 MMOL/L (21-32) Anion Gap 8 mmol/L (5-15) Blood Urea Nitrogen 10 mg/dL (7-18) Creatinine 1.2 MG/DL (0.55-1.30) Estimat Glomerular Filtration Rate > 60 mL/min (>60) Glucose Level 99 MG/DL (74-106) Calcium Level 9.0 MG/DL (8.5-10.1) Phosphorus Level 3.2 MG/DL (2.5-4.9) Magnesium Level 2.2 MG/DL (1.8-2.4) Total Bilirubin 1.0 MG/DL (0.2-1.0) Aspartate Amino Transf (AST/SGOT) 30 U/L (15-37) Alanine Aminotransferase (ALT/SGPT) 17 U/L (12-78) Alkaline Phosphatase 59 U/L (46-116) Pro-B-Type Natriuretic Peptide 5056 pg/mL (0-125) H Total Protein 6.8 G/DL (6.4-8.2) Albumin 3.1 G/DL (3.4-5.0) L Globulin 3.7 g/dL Albumin/Globulin Ratio 0.8 (1.0-2.7) L Vitamin B12 Level 585 PG/ML (193-986) Vitamin D 25-Hydroxy Pending 25-Hydroxy Vitamin D2 Pending 25-Hydroxy Vitamin D3 Pending Microbiology Date/Time Source Procedure Growth Status 11/23/19 14:28 Nasopharynx Coronavirus COVID-19 PCR (NA[facility]TE) - Final Complete FilsoofTenzin MD Nov 26, 2019 12:58
--- NOTE | 2019-11-26 13:48 | Internal Med Progress Note ---
Subjective Date of Service: Nov 26, 2019 Physician Name Preeti Alfaro Attending Physician Preeti Alfaro MD Current Medications Medications (Trade) Dose Ordered Sig/Javy Route PRN Reason Start Time Stop Time Status Last Admin Dose Admin Acetaminophen (Tylenol) 650 mg Q4H PRN ORAL Mild Pain (Pain Scale 1-3) 11/23/19 13:15 12/23/19 13:14 Amlodipine Besylate (Norvasc) 10 mg DAILY ORAL 11/24/19 09:00 12/24/19 08:59 11/26/19 08:38 Amoxicillin/ Clavulanate Potassium (Augmentin) 875 mg Q12HR ORAL 11/25/19 21:00 12/02/19 20:59 11/26/19 08:38 Aspirin (Ecotrin) 81 mg DAILY ORAL 11/23/19 13:30 01/07/20 13:29 11/26/19 08:37 Carvedilol (Coreg) 6.25 mg EVERY 12 HOURS ORAL 11/25/19 21:00 12/25/19 20:59 11/26/19 08:37 Ciprofloxacin (Cipro 500mg tab) 500 mg Q12HR ORAL 11/24/19 21:00 12/01/19 20:59 11/26/19 08:39 Furosemide (Lasix) 20 mg DAILY ORAL 11/25/19 09:00 12/25/19 08:59 11/26/19 08:38 Haloperidol Lactate (Haldol) 5 mg Q6H PRN IM Agitation 11/23/19 21:00 01/07/20 17:44 11/26/19 02:18 Hydralazine HCl (Apresoline) 10 mg Q4H PRN IV SBP>160 11/23/19 13:15 02/21/20 13:14 11/25/19 11:21 Ondansetron HCl (Zofran) 4 mg Q6H PRN IVP Nausea & Vomiting 11/23/19 13:15 12/23/19 13:14 Quetiapine Fumarate (SEROqueL) 12.5 mg BEDTIME ORAL 11/25/19 21:00 01/09/20 20:59 11/25/19 21:49 Allergies: Coded Allergies: No Known Allergies (Unverified , 01/10/13) ROS Limited/Unobtainable: Yes Constitutional: Reports: no symptoms HEENT: Reports: no symptoms Cardiovascular: Reports: no symptoms Respiratory: Reports: cough Gastrointestinal/Abdominal: Reports: nausea Genitourinary: Reports: no symptoms Neurologic/Psychiatric: Reports: anxiety, weakness All Systems: reviewed and negative except above Objective Last Vital Signs Date Time Temp Pulse Resp B/P (MAP) Pulse Ox O2 Delivery O2 Flow Rate FiO2 11/26/19 12:00 57 11/26/19 12:00 97.9 19 126/52 (76) 98 11/26/19 09:00 Room Air General Appearance: alert Cardiovascular: regular rhythm, no gallop/murmur, systolic murmur Respiratory/Chest: lungs clear Abdomen: non tender, soft, no mass Neurologic: disoriented Skin: warm/dry Laboratory Tests Test 11/26/19 04:20 White Blood Count 1.9 K/UL (4.8-10.8) *L Red Blood Count 3.27 M/UL (4.70-6.10) L Hemoglobin 10.4 G/DL (14.2-18.0) L Hematocrit 32.4 % (42.0-52.0) L Mean Corpuscular Volume 99 FL (80-99) Mean Corpuscular Hemoglobin 31.7 PG (27.0-31.0) H Mean Corpuscular Hemoglobin Concent 32.0 G/DL (32.0-36.0) Red Cell Distribution Width 11.4 % (11.6-14.8) L Platelet Count 118 K/UL (150-450) L Mean Platelet Volume 6.6 FL (6.5-10.1) Neutrophils (%) (Auto) % (45.0-75.0) Lymphocytes (%) (Auto) % (20.0-45.0) Monocytes (%) (Auto) % (1.0-10.0) Eosinophils (%) (Auto) % (0.0-3.0) Basophils (%) (Auto) % (0.0-2.0) Differential Total Cells Counted 100 Neutrophils % (Manual) 54 % (45-75) Lymphocytes % (Manual) 29 % (20-45) Monocytes % (Manual) 14 % (1-10) H Eosinophils % (Manual) 2 % (0-3) Basophils % (Manual) 1 % (0-2) Band Neutrophils 0 % (0-8) Platelet Estimate Decreased L Platelet Morphology Normal Hypochromasia 1+ Anisocytosis 1+ Sodium Level 141 MMOL/L (136-145) Potassium Level 3.4 MMOL/L (3.5-5.1) L Chloride Level 105 MMOL/L (98-107) Carbon Dioxide Level 28 MMOL/L (21-32) Anion Gap 8 mmol/L (5-15) Blood Urea Nitrogen 10 mg/dL (7-18) Creatinine 1.2 MG/DL (0.55-1.30) Estimat Glomerular Filtration Rate > 60 mL/min (>60) Glucose Level 99 MG/DL (74-106) Calcium Level 9.0 MG/DL (8.5-10.1) Phosphorus Level 3.2 MG/DL (2.5-4.9) Magnesium Level 2.2 MG/DL (1.8-2.4) Total Bilirubin 1.0 MG/DL (0.2-1.0) Aspartate Amino Transf (AST/SGOT) 30 U/L (15-37) Alanine Aminotransferase (ALT/SGPT) 17 U/L (12-78) Alkaline Phosphatase 59 U/L (46-116) Pro-B-Type Natriuretic Peptide 5056 pg/mL (0-125) H Total Protein 6.8 G/DL (6.4-8.2) Albumin 3.1 G/DL (3.4-5.0) L Globulin 3.7 g/dL Albumin/Globulin Ratio 0.8 (1.0-2.7) L Vitamin B12 Level 585 PG/ML (193-986) Vitamin D 25-Hydroxy Pending 25-Hydroxy Vitamin D2 Pending 25-Hydroxy Vitamin D3 Pending Microbiology Date/Time Source Procedure Growth Status 11/23/19 14:28 Nasopharynx Coronavirus COVID-19 PCR ([facility]) - Final Complete Intake and Output 11/25/19 11/26/19 18:59 06:59 Intake Total 480 ml 240 ml Balance 480 ml 240 ml Intake Oral 480 ml 240 ml # Voids 2 2 Assessment/Plan Status: stable, progressing Assessment/Plan IMPRESSION: FEVER right lung pneumonia vs mass SIRS elevated pro BNP rule out CHF elevated troponin pancytopenia dementia with psychotic behavior PLAN: TTE reviewed tele ruled out covid-[address] wo contrast lasix IV abx f/u cultures electrolyte replete as needed cardio f/u pulm eval psych f/u soft restraint as needed for safey and fall prevention asa BP control PREETI ALFARO MD INTERNAL [facility] [phone] TIME OF NOTE MAY NOT BE THE ACTUAL ENCOUNTER TIME FULL CODE TIME SPENT TODAY over 35 MINUTES Preeti Alfaro MD Nov 26, 2019 13:48
--- NOTE | 2019-11-26 14:28 | Nephrology Progress Note ---
Assessment/Plan Plan #sepsis #fever #dementia #h/o myelodysplastic syndrome #HTN #HLD - lasix 20mg daily - repleted lytes - add amlodipine 10 - add coreg 6.25mg BID - lasix 20mg daily - on augmetin - follow cx - r/o COVID -> neg - cardiology eval - avoid nephrotoxins - monitor mag and phos daily Subjective ROS Limited/Unobtainable: No Subjective WBC downtrening K low -repeted hemoglobin stable getting diuresed Objective Objective Last 24 Hour Vital Signs Date Time Temp Pulse Resp B/P (MAP) Pulse Ox O2 Delivery O2 Flow Rate FiO2 11/26/19 12:00 57 11/26/19 12:00 97.9 60 19 126/52 (76) 98 11/26/19 09:00 Room Air 11/26/19 08:38 72 158/78 11/26/19 08:37 72 158/78 11/26/19 08:00 98.1 65 20 158/77 (104) 98 11/26/19 08:00 62 11/26/19 04:00 Room Air 11/26/19 04:00 98.7 75 20 159/72 (101) 96 11/26/19 04:00 72 11/26/19 00:00 98.1 60 20 157/77 (103) 99 11/26/19 00:00 103 11/26/19 00:00 Room Air 11/25/19 21:50 74 156/78 11/25/19 21:00 Room Air 11/25/19 20:00 78 11/25/19 20:00 98.9 84 20 143/69 (93) 97 11/25/19 16:00 81 11/25/19 16:00 99.3 81 20 115/64 (81) 98 Intake and Output 11/25/19 11/26/19 19:00 07:00 Intake Total 480 ml 240 ml Balance 480 ml 240 ml Intake Oral 480 ml 240 ml # Voids 2 2 Laboratory Tests 11/26/19 04:20: White Blood Count 1.9*L, Red Blood Count 3.27L, Hemoglobin 10.4L, Hematocrit 32.4L, Mean Corpuscular Volume 99, Mean Corpuscular Hemoglobin 31.7H, Mean Corpuscular Hemoglobin Concent 32.0, Red Cell Distribution Width 11.4L, Platelet Count 118L, Mean Platelet Volume 6.6, Neutrophils (%) (Auto) , Lymphocytes (%) (Auto) , Monocytes (%) (Auto) , Eosinophils (%) (Auto) , Basophils (%) (Auto) , Differential Total Cells Counted 100, Neutrophils % ( Manual) 54, Lymphocytes % (Manual) 29, Monocytes % (Manual) 14H, Eosinophils % ( Manual) 2, Basophils % (Manual) 1, Band Neutrophils 0, Platelet Estimate DecreasedL, Platelet Morphology Normal, Hypochromasia 1+, Anisocytosis 1+, Sodium Level 141, Potassium Level 3.4L, Chloride Level 105, Carbon Dioxide Level 28, Anion Gap 8, Blood Urea Nitrogen 10, Creatinine 1.2, Estimat Glomerular Filtration Rate > 60, Glucose Level 99, Calcium Level 9.0, Phosphorus Level 3.2, Magnesium Level 2.2, Total Bilirubin 1.0, Aspartate Amino Transf (AST/SGOT) 30, Alanine Aminotransferase (ALT/SGPT) 17, Alkaline Phosphatase 59, Pro-B-Type Natriuretic Peptide 5056H, Total Protein 6.8, Albumin 3.1L, Globulin 3.7, Albumin/Globulin Ratio 0.8L, Vitamin B12 Level 585, Vitamin D 25-Hydroxy [Pending], 25-Hydroxy Vitamin D2 [Pending], 25-Hydroxy Vitamin D3 [Pending] Height (Feet): 6 Height (Inches): 2.00 Weight (Pounds): 174 Objective General Appearance: no apparent distress, lethargic, confused Lines, tubes and drains: peripheral HEENT: normocephalic Neck: non-tender, normal alignment, supple, normal inspection Respiratory/Chest: chest wall non-tender, lungs clear Cardiovascular/Chest: normal peripheral pulses, normal rate, regular rhythm Abdomen: normal bowel sounds, non tender, soft, no organomegaly Extremities: normal range of motion, non-tender, normal inspection, no calf tenderness Skin Exam: normal pigmentation, warm/dry 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 Nov 26, 2019 14:28
[2019-11-26 16:00] VITALS: BP 149/76
--- NOTE | 2019-11-26 19:23 | NUR ---
HAND-OFF: Report given to MANDEEP Rivera.
--- NOTE | 2019-11-26 19:25 | NUR ---
NURSE NOTES: Got report from Araceli KAUFMAN. Pt in stable condition. No s/s of distress or discomfort noted. Pt resting in bed comfortably. Bed in low and locked position, call light within reach, bedside table within reach. Continue to monitor.
[2019-11-26 20:00] VITALS: BP 151/77
[2019-11-27] VITALS: BP 143/71
[2019-11-27 04:00] VITALS: BP 145/73
[2019-11-27 05:49] LABS: ANION GAP 8 mmol/L (5-15); BLOOD UREA NITROGEN 13 mg/dL (7-18); CALCIUM 8.8 MG/DL (8.5-10.1); CARBON DIOXIDE 30 MMOL/L (21-32); CHLORIDE 105 MMOL/L (98-107); CREATININE 1.1 MG/DL (0.55-1.30); POTASSIUM 3.6 MMOL/L (3.5-5.1); SODIUM 143 MMOL/L (136-145)
--- NOTE | 2019-11-27 07:00 | Pulmonology Progress Note ---
Subjective ROS Limited/Unobtainable: No Interval Events: None new Constitutional: Reports: fatigue; Denies: fever HEENT: Repors: no symptoms Respiratory: Reports: no symptoms Gastrointestinal/Abdominal: Denies: nausea, vomiting, diarrhea, constipation Genitourinary: Reports: no symptoms Neurologic: Reports: no symptoms Psychiatric: Reports: no symptoms; Denies: depression Skin: Denies: rash Musculoskeletal: Denies: pain Allergies: Coded Allergies: No Known Allergies (Unverified , 01/10/13) All Systems: reviewed and negative except above Objective Last 24 Hour Vital Signs Date Time Temp Pulse Resp B/P (MAP) Pulse Ox O2 Delivery O2 Flow Rate FiO2 11/27/19 04:00 98.5 70 20 145/73 (97) 97 11/27/19 04:00 61 11/27/19 00:00 60 11/27/19 00:00 97.6 66 20 143/71 (95) 98 11/26/19 21:09 74 151/77 11/26/19 21:00 Room Air 11/26/19 20:00 68 11/26/19 20:00 97.5 74 20 151/77 (101) 98 11/26/19 16:00 65 11/26/19 16:00 97.5 61 21 149/76 (100) 99 11/26/19 12:00 57 11/26/19 12:00 97.9 60 19 126/52 (76) 98 11/26/19 09:00 Room Air 11/26/19 08:38 72 158/78 11/26/19 08:37 72 158/78 11/26/19 08:00 98.1 65 20 158/77 (104) 98 11/26/19 08:00 62 Intake and Output 11/26/19 11/27/19 19:00 07:00 Intake Total 340 ml Output Total 400 ml Balance -60 ml Intake Oral 340 ml Output Urine Total 400 ml # Voids 9 3 General Appearance: no acute distress Respiratory: chest wall non-tender, lungs clear Cardiovascular: normal peripheral pulses Abdomen: normal bowel sounds Extremities: no cyanosis Laboratory Tests 11/27/19 04:37: Sodium Level 143, Potassium Level 3.6, Chloride Level 105, Carbon Dioxide Level 30, Anion Gap 8, Blood Urea Nitrogen 13, Creatinine 1.1, Estimat Glomerular Filtration Rate > 60, Glucose Level 94, Calcium Level 8.8, Magnesium Level 2.2 Current Medications Medications (Trade) Dose Ordered Sig/Javy Route PRN Reason Start Time Stop Time Status Last Admin Dose Admin Acetaminophen (Tylenol) 650 mg Q4H PRN ORAL Mild Pain (Pain Scale 1-3) 11/23/19 13:15 12/23/19 13:14 Amlodipine Besylate (Norvasc) 10 mg DAILY ORAL 11/24/19 09:00 12/24/19 08:59 11/26/19 08:38 Amoxicillin/ Clavulanate Potassium (Augmentin) 875 mg Q12HR ORAL 11/25/19 21:00 12/02/19 20:59 11/26/19 21:09 Aspirin (Ecotrin) 81 mg DAILY ORAL 11/23/19 13:30 01/07/20 13:29 11/26/19 08:37 Carvedilol (Coreg) 6.25 mg EVERY 12 HOURS ORAL 11/25/19 21:00 12/25/19 20:59 11/26/19 21:09 Ciprofloxacin (Cipro 500mg tab) 500 mg Q12HR ORAL 11/24/19 21:00 12/01/19 20:59 11/26/19 21:09 Furosemide (Lasix) 20 mg DAILY ORAL 11/25/19 09:00 12/25/19 08:59 11/26/19 08:38 Haloperidol Lactate (Haldol) 5 mg Q6H PRN IM Agitation 11/23/19 21:00 01/07/20 17:44 11/26/19 02:18 Hydralazine HCl (Apresoline) 10 mg Q4H PRN IV SBP>160 11/23/19 13:15 02/21/20 13:14 11/25/19 11:21 Ondansetron HCl (Zofran) 4 mg Q6H PRN IVP Nausea & Vomiting 11/23/19 13:15 12/23/19 13:14 Quetiapine Fumarate (SEROqueL) 25 mg BEDTIME ORAL 11/27/19 21:00 01/11/20 20:59 Assessment/Plan Assessment/Plan IMPRESSION: 1. Probable right lung pneumonia. 2. Dementia. 3. Hypertension. DISCUSSION: Abx per ID Oxygen and pulmonary hygiene Priscilla Avila Omar Syed MD Nov 27, 2019 07:00
--- NOTE | 2019-11-27 07:20 | NUR ---
HAND-OFF: Report given to Brittany KAUFMAN.
--- NOTE | 2019-11-27 07:30 | NUR ---
NURSE NOTES: Received report from MANDEEP Clifford. Patient awake, alert, and oriented x2. On bilateral soft wrist restraints due to removing devices. No signs/symptoms of acute distress noted. Lungs clear to auscultate bilaterally, breathing is unlabored. L forearm 18 g IV saline lock, patent and intact. Bed lowest position. brakes and locked, siderails x3 raised, call light in reach. will cont to monitor.
[2019-11-27 08:00] VITALS: BP 152/70
[2019-11-27] MEDS: Aspirin EC 81mg tab ORAL SCH (08:17)
[2019-11-27] MEDS: Augmentin 875mg Tab ORAL SCH ×2 (08:18→21:00)
[2019-11-27] MEDS: Ciprofloxacin 500mg tab ORAL SCH ×2 (08:18→21:00)
[2019-11-27] MEDS: Carvedilol 6.25mg Tab ORAL SCH ×2 (08:18→21:00)
--- NOTE | 2019-11-27 09:42 | NUR ---
RD ASSESSMENT & RECOMMENDATIONS SEE CARE ACTIVITY FOR COMPLETE ASSESSMENT DAILY ESTIMATED NEEDS: Needs based on cardiac, wound 79kg 25-30 kcals/kg 0431-6625 total kcals 1-1.25 g protein/kg 79-98 g total protein 20-25 mL/kg 1067-2043 total fluid mLs NUTRITION DIAGNOSIS: Swallowing difficulty R/T dysphagia as evidenced by COTTON BALER recommends mech soft chopped texture at this time. CURRENT DIET:REGULAR, mech soft chopped PO DIET RECOMMENDATIONS: Liberalized REGULAR w/ variable, poor PO (texture per COTTON BALER) ADDITIONAL RECOMMENDATIONS: * Calibrated bedscale wt * Monitor lytes closely w/ Lasix, replete as needed * Skin integrity: MVI x 1 * Ensure Enlive TID w/ meals * W/ PO intake consistently >70%, add LOW NA to diet order
[2019-11-27 12:07] VITALS: BP 134/64
--- NOTE | 2019-11-27 13:58 | Cardiology Progress Note ---
Assessment/Plan Status: stable Assessment/Plan Assessment/Plan Status: stable Assessment/Plan: ASSESSMENT Fever unknown origin lung mass cardiomegaly Rule out COVID Troponin elevation PLAN: Serial EKG/Troponin Monitor on telemetry Empiric Abx Echocardiogram with normal LV function but elevated filling pressures grade 2 diastolic dysfunction and pulmonary hypertension Continue diuresis to lower LVEDP and PAP Continue Norvasc for hypertension Subjective Cardiovascular: Reports: no symptoms Respiratory: Reports: no symptoms Gastrointestinal/Abdominal: Reports: no symptoms Genitourinary: Reports: no symptoms Subjective No acute events, TTE with normal LV function and moderate TR pulmonary hypertension and elevated right sided pressures Objective Last 24 Hour Vital Signs Date Time Temp Pulse Resp B/P (MAP) Pulse Ox O2 Delivery O2 Flow Rate FiO2 11/27/19 12:33 67 11/27/19 12:07 97.9 65 18 134/64 (87) 98 11/27/19 09:10 Room Air 11/27/19 08:49 58 11/27/19 08:18 68 152/70 11/27/19 08:18 68 152/70 11/27/19 08:00 98.8 68 20 152/70 (97) 98 11/27/19 04:00 98.5 70 20 145/73 (97) 97 11/27/19 04:00 61 11/27/19 00:00 60 11/27/19 00:00 97.6 66 20 143/71 (95) 98 11/26/19 21:09 74 151/77 11/26/19 21:00 Room Air 11/26/19 20:00 68 11/26/19 20:00 97.5 74 20 151/77 (101) 98 11/26/19 16:00 65 11/26/19 16:00 97.5 61 21 149/76 (100) 99 General Appearance: no apparent distress, alert EENT: normal ENT inspection, pharynx normal Neck: normal alignment, supple Rhythm: NSR Cardiovascular: normal peripheral pulses, regular rhythm Respiratory/Chest: chest wall non-tender, normal breath sounds, no respiratory distress Abdomen: normal bowel sounds, non tender, soft, no organomegaly Extremities: normal range of motion, non-tender, normal inspection 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, no motor/sensory deficits Intake and Output 11/26/19 11/27/19 19:00 07:00 Intake Total 340 ml Output Total 400 ml Balance -60 ml Intake Oral 340 ml Output Urine Total 400 ml # Voids 9 3 Laboratory Tests Test 11/27/19 04:37 Sodium Level 143 MMOL/L (136-145) Potassium Level 3.6 MMOL/L (3.5-5.1) Chloride Level 105 MMOL/L (98-107) Carbon Dioxide Level 30 MMOL/L (21-32) Anion Gap 8 mmol/L (5-15) Blood Urea Nitrogen 13 mg/dL (7-18) Creatinine 1.1 MG/DL (0.55-1.30) Estimat Glomerular Filtration Rate > 60 mL/min (>60) Glucose Level 94 MG/DL (74-106) Calcium Level 8.8 MG/DL (8.5-10.1) Magnesium Level 2.2 MG/DL (1.8-2.4) Tenzin Mitchell MD Nov 27, 2019 13:58
--- NOTE | 2019-11-27 15:04 | Infectious Diseases Prog Note ---
Assessment/Plan Assessment/Plan ASSESSMENT AND PLAN: 1. pna, sepsis, fevers, pancytopenia, covid-19 testing negative x 2 - augmentin plus ciprofloxacin - day # 5 abx - refuses iv abx - fevers better - clinically stable - monitor labs and chest x-ray as indicated - f/u chest x-ray ordered 2. The patient has history of diabetes. 3. Hypertension. 4. Blood sugar and blood pressure treatment per primary care team for diabetes and hypertension. 5. Dementia. 6. Aspiration risk. 7. Dysplastic syndrome. 8. Pancytopenia. 9. Anemia, thrombocytopenia, leukopenia. 10. Continue treatment per primary consultants. 11. No known drug allergies. 12. Social history is negative. 13. Family history is noncontributory. 14. MAR was noted. 15. Case discussed with RN. 16. Continue COVID-19 virus isolation, pending second testing result. Subjective Constitutional: Denies: fever HEENT: Denies: congestion Respiratory: Denies: shortness of breath Cardiovascular: Denies: chest pain Gastrointestinal/Abdominal: Denies: nausea, vomiting, diarrhea Genitourinary: Reports: other - no diallo Neurologic: Denies: headache Psychiatric: Denies: depression Skin: Denies: rash Hematologic: Denies: bleeding Musculoskeletal: Denies: pain Allergies: Coded Allergies: No Known Allergies (Unverified , 01/10/13) Objective Vital Signs Last 24 Hour Vital Signs Date Time Temp Pulse Resp B/P (MAP) Pulse Ox O2 Delivery O2 Flow Rate FiO2 11/27/19 12:33 67 11/27/19 12:07 97.9 65 18 134/64 (87) 98 11/27/19 09:10 Room Air 11/27/19 08:49 58 11/27/19 08:18 68 152/70 11/27/19 08:18 68 152/70 11/27/19 08:00 98.8 68 20 152/70 (97) 98 11/27/19 04:00 98.5 70 20 145/73 (97) 97 11/27/19 04:00 61 11/27/19 00:00 60 11/27/19 00:00 97.6 66 20 143/71 (95) 98 11/26/19 21:09 74 151/77 11/26/19 21:00 Room Air 11/26/19 20:00 68 6/12/20 20:00 97.5 74 20 151/77 (101) 98 11/26/19 16:00 65 11/26/19 16:00 97.5 61 21 149/76 (100) 99 Height (Feet): 6 Height (Inches): 2.00 Weight (Pounds): 174 General Appearance: no acute distress HEENT: normocephalic, atraumatic, anicteric, mucous membranes moist Respiratory/Chest: lungs clear, normal breath sounds, no respiratory distress, no accessory muscle use Cardiovascular: normal rate, regular rhythm, no gallop/murmur, no JVD Abdomen: normal bowel sounds, soft, non tender, no organomegaly, non distended Genitourinary: other - no diallo, no cva pain Extremities: no cyanosis Skin: no rash 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 Findings may represent an area of organizing pneumonia. Findings could also represent post inflammatory changes. Neoplasm as etiology of any of the solid opacities excludable. Recommend radiographic follow-up to resolution. 7 mm subpleural nodule in the right lower lobe. This could be postinflammatory or neoplastic. Recommend short interval follow up at 6-12 months to subsequent follow up at 18-24 months. COPD changes Evidence of old granulomatous disease within the left lower lobe and liver Possible constipation Incidental findings of left lobe liver cysts, evidence of prior retroperitoneal surgery Chest - 11/25/19 - Procedure: XRAY Chest 1v Indication: Cough Technique: One view of the chest Comparison: 11/22/2019 Findings: Unchanged infiltrate versus mass in the right midlung periphery. The remainder of the lungs pleural spaces are clear. The heart size is now appears normal, probably due to better inspiration on the current exam. The aorta is evaluated tortuous and calcified. There are degenerative changes of left shoulder Impression: Unchanged right midlung infiltrate versus mass, since prior exam of 3 days earlier Microbiology Date/Time Source Procedure Growth Status 11/22/19 17:00 Blood Blood Culture - Preliminary NO GROWTH AFTER 4 DAYS Resulted 11/23/19 14:28 Nasopharynx Coronavirus COVID-19 PCR ([facility]) - Final Complete Labs Test 11/26/19 04:20 11/27/19 04:37 White Blood Count 1.9 K/UL (4.8-10.8) Red Blood Count 3.27 M/UL (4.70-6.10) Hemoglobin 10.4 G/DL (14.2-18.0) Hematocrit 32.4 % (42.0-52.0) Mean Corpuscular Volume 99 FL (80-99) Mean Corpuscular Hemoglobin 31.7 PG (27.0-31.0) Mean Corpuscular Hemoglobin Concent 32.0 G/DL (32.0-36.0) Red Cell Distribution Width 11.4 % (11.6-14.8) Platelet Count 118 K/UL (150-450) Mean Platelet Volume 6.6 FL (6.5-10.1) Neutrophils (%) (Auto) % (45.0-75.0) Lymphocytes (%) (Auto) % (20.0-45.0) Monocytes (%) (Auto) % (1.0-10.0) Eosinophils (%) (Auto) % (0.0-3.0) Basophils (%) (Auto) % (0.0-2.0) Differential Total Cells Counted 100 Neutrophils % (Manual) 54 % (45-75) Lymphocytes % (Manual) 29 % (20-45) Monocytes % (Manual) 14 % (1-10) Eosinophils % (Manual) 2 % (0-3) Basophils % (Manual) 1 % (0-2) Band Neutrophils 0 % (0-8) Platelet Estimate Decreased Platelet Morphology Normal Hypochromasia 1+ Anisocytosis 1+ Sodium Level 141 MMOL/L (136-145) 143 MMOL/L (136-145) Potassium Level 3.4 MMOL/L (3.5-5.1) 3.6 MMOL/L (3.5-5.1) Chloride Level 105 MMOL/L (98-107) 105 MMOL/L (98-107) Carbon Dioxide Level 28 MMOL/L (21-32) 30 MMOL/L (21-32) Anion Gap 8 mmol/L (5-15) 8 mmol/L (5-15) Blood Urea Nitrogen 10 mg/dL (7-18) 13 mg/dL (7-18) Creatinine 1.2 MG/DL (0.55-1.30) 1.1 MG/DL (0.55-1.30) Estimat Glomerular Filtration Rate > 60 mL/min (>60) > 60 mL/min (>60) Glucose Level 99 MG/DL (74-106) 94 MG/DL (74-106) Calcium Level 9.0 MG/DL (8.5-10.1) 8.8 MG/DL (8.5-10.1) Phosphorus Level 3.2 MG/DL (2.5-4.9) Magnesium Level 2.2 MG/DL (1.8-2.4) 2.2 MG/DL (1.8-2.4) Total Bilirubin 1.0 MG/DL (0.2-1.0) Aspartate Amino Transf (AST/SGOT) 30 U/L (15-37) Alanine Aminotransferase (ALT/SGPT) 17 U/L (12-78) Alkaline Phosphatase 59 U/L (46-116) Pro-B-Type Natriuretic Peptide 5056 pg/mL (0-125) Total Protein 6.8 G/DL (6.4-8.2) Albumin 3.1 G/DL (3.4-5.0) Globulin 3.7 g/dL Albumin/Globulin Ratio 0.8 (1.0-2.7) Vitamin B12 Level 585 PG/ML (193-986) Laboratory Tests Test 11/27/19 04:37 Sodium Level 143 MMOL/L (136-145) Potassium Level 3.6 MMOL/L (3.5-5.1) Chloride Level 105 MMOL/L (98-107) Carbon Dioxide Level 30 MMOL/L (21-32) Anion Gap 8 mmol/L (5-15) Blood Urea Nitrogen 13 mg/dL (7-18) Creatinine 1.1 MG/DL (0.55-1.30) Estimat Glomerular Filtration Rate > 60 mL/min (>60) Glucose Level 94 MG/DL (74-106) Calcium Level 8.8 MG/DL (8.5-10.1) Magnesium Level 2.2 MG/DL (1.8-2.4) Current Medications Medications (Trade) Dose Ordered Sig/Javy Route PRN Reason Start Time Stop Time Status Last Admin Dose Admin Acetaminophen (Tylenol) 650 mg Q4H PRN ORAL Mild Pain (Pain Scale 1-3) 11/23/19 13:15 12/23/19 13:14 Amlodipine Besylate (Norvasc) 10 mg DAILY ORAL 11/24/19 09:00 12/24/19 08:59 11/27/19 08:18 Amoxicillin/ Clavulanate Potassium (Augmentin) 875 mg Q12HR ORAL 11/25/19 21:00 12/02/19 20:59 11/27/19 08:18 Aspirin (Ecotrin) 81 mg DAILY ORAL 11/23/19 13:30 01/07/20 13:29 11/27/19 08:17 Carvedilol (Coreg) 6.25 mg EVERY 12 HOURS ORAL 11/25/19 21:00 12/25/19 20:59 11/27/19 08:18 Ciprofloxacin (Cipro 500mg tab) 500 mg Q12HR ORAL 11/24/19 21:00 12/01/19 20:59 11/27/19 08:18 Furosemide (Lasix) 20 mg DAILY ORAL 11/25/19 09:00 12/25/19 08:59 11/27/19 08:17 Haloperidol Lactate (Haldol) 5 mg Q6H PRN IM Agitation 11/23/19 21:00 01/07/20 17:44 11/26/19 02:18 Hydralazine HCl (Apresoline) 10 mg Q4H PRN IV SBP>160 11/23/19 13:15 02/21/20 13:14 11/25/19 11:21 Ondansetron HCl (Zofran) 4 mg Q6H PRN IVP Nausea & Vomiting 11/23/19 13:15 12/23/19 13:14 Quetiapine Fumarate (SEROqueL) 25 mg BEDTIME ORAL 11/27/19 21:00 01/11/20 20:59 Darya Fagan MD Nov 27, 2019 15:04
--- NOTE | 2019-11-27 15:43 | Infectious Diseases Prog Note ---
Assessment/Plan Assessment/Plan ASSESSMENT AND PLAN: 1. pna, sepsis, fevers, pancytopenia, covid-19 testing negative x 2 - augmentin plus ciprofloxacin - day # 5 abx - refuses iv abx - fevers better - clinically stable - monitor labs and chest x-ray as indicated 2. The patient has history of diabetes. 3. Hypertension. 4. Blood sugar and blood pressure treatment per primary care team for diabetes and hypertension. 5. Dementia. 6. Aspiration risk. 7. Dysplastic syndrome. 8. Pancytopenia. 9. Anemia, thrombocytopenia, leukopenia. 10. Continue treatment per primary consultants. 11. No known drug allergies. 12. Social history is negative. 13. Family history is noncontributory. 14. MAR was noted. 15. Case discussed with RN. 16. Continue COVID-19 virus isolation, pending second testing result. Subjective Constitutional: Denies: fever HEENT: Denies: congestion Respiratory: Denies: shortness of breath Cardiovascular: Denies: chest pain Gastrointestinal/Abdominal: Denies: nausea, vomiting, diarrhea Genitourinary: Denies: dysuria Neurologic: Denies: headache Psychiatric: Denies: depression Skin: Denies: rash Hematologic: Denies: bleeding Musculoskeletal: Denies: pain Allergies: Coded Allergies: No Known Allergies (Unverified , 01/10/13) Objective Vital Signs Last 24 Hour Vital Signs Date Time Temp Pulse Resp B/P (MAP) Pulse Ox O2 Delivery O2 Flow Rate FiO2 11/27/19 12:33 67 11/27/19 12:07 97.9 65 18 134/64 (87) 98 11/27/19 09:10 Room Air 11/27/19 08:49 58 11/27/19 08:18 68 152/70 11/27/19 08:18 68 152/70 11/27/19 08:00 98.8 68 20 152/70 (97) 98 11/27/19 04:00 98.5 70 20 145/73 (97) 97 11/27/19 04:00 61 11/27/19 00:00 60 11/27/19 00:00 97.6 66 20 143/71 (95) 98 11/26/19 21:09 74 151/77 11/26/19 21:00 Room Air 11/26/19 20:00 68 11/26/19 20:00 97.5 74 20 151/77 (101) 98 11/26/19 16:00 65 11/26/19 16:00 97.5 61 21 149/76 (100) 99 Height (Feet): 6 Height (Inches): 2.00 Weight (Pounds): 174 General Appearance: no acute distress HEENT: normocephalic, atraumatic, anicteric Respiratory/Chest: lungs clear, normal breath sounds, no respiratory distress, no accessory muscle use Cardiovascular: normal rate, regular rhythm, no gallop/murmur Abdomen: normal bowel sounds, soft, non tender, no organomegaly, non distended Genitourinary: other - no diallo, no cva pain Extremities: no cyanosis Skin: no rash 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 Findings may represent an area of organizing pneumonia. Findings could also represent post inflammatory changes. Neoplasm as etiology of any of the solid opacities excludable. Recommend radiographic follow-up to resolution. 7 mm subpleural nodule in the right lower lobe. This could be postinflammatory or neoplastic. Recommend short interval follow up at 6-12 months to subsequent follow up at 18-24 months. COPD changes Evidence of old granulomatous disease within the left lower lobe and liver Possible constipation Incidental findings of left lobe liver cysts, evidence of prior retroperitoneal surgery Chest - 11/25/19 - Procedure: XRAY Chest 1v Indication: Cough Technique: One view of the chest Comparison: 11/22/2019 Findings: Unchanged infiltrate versus mass in the right midlung periphery. The remainder of the lungs pleural spaces are clear. The heart size is now appears normal, probably due to better inspiration on the current exam. The aorta is evaluated tortuous and calcified. There are degenerative changes of left shoulder Impression: Unchanged right midlung infiltrate versus mass, since prior exam of 3 days earlier Microbiology Date/Time Source Procedure Growth Status 11/22/19 17:00 Blood Blood Culture - Preliminary NO GROWTH AFTER 4 DAYS Resulted 11/23/19 14:28 Nasopharynx Coronavirus COVID-19 PCR ([facility]) - Final Complete Labs Test 11/26/19 04:20 6/13/20 04:37 White Blood Count 1.9 K/UL (4.8-10.8) Red Blood Count 3.27 M/UL (4.70-6.10) Hemoglobin 10.4 G/DL (14.2-18.0) Hematocrit 32.4 % (42.0-52.0) Mean Corpuscular Volume 99 FL (80-99) Mean Corpuscular Hemoglobin 31.7 PG (27.0-31.0) Mean Corpuscular Hemoglobin Concent 32.0 G/DL (32.0-36.0) Red Cell Distribution Width 11.4 % (11.6-14.8) Platelet Count 118 K/UL (150-450) Mean Platelet Volume 6.6 FL (6.5-10.1) Neutrophils (%) (Auto) % (45.0-75.0) Lymphocytes (%) (Auto) % (20.0-45.0) Monocytes (%) (Auto) % (1.0-10.0) Eosinophils (%) (Auto) % (0.0-3.0) Basophils (%) (Auto) % (0.0-2.0) Differential Total Cells Counted 100 Neutrophils % (Manual) 54 % (45-75) Lymphocytes % (Manual) 29 % (20-45) Monocytes % (Manual) 14 % (1-10) Eosinophils % (Manual) 2 % (0-3) Basophils % (Manual) 1 % (0-2) Band Neutrophils 0 % (0-8) Platelet Estimate Decreased Platelet Morphology Normal Hypochromasia 1+ Anisocytosis 1+ Sodium Level 141 MMOL/L (136-145) 143 MMOL/L (136-145) Potassium Level 3.4 MMOL/L (3.5-5.1) 3.6 MMOL/L (3.5-5.1) Chloride Level 105 MMOL/L (98-107) 105 MMOL/L (98-107) Carbon Dioxide Level 28 MMOL/L (21-32) 30 MMOL/L (21-32) Anion Gap 8 mmol/L (5-15) 8 mmol/L (5-15) Blood Urea Nitrogen 10 mg/dL (7-18) 13 mg/dL (7-18) Creatinine 1.2 MG/DL (0.55-1.30) 1.1 MG/DL (0.55-1.30) Estimat Glomerular Filtration Rate > 60 mL/min (>60) > 60 mL/min (>60) Glucose Level 99 MG/DL (74-106) 94 MG/DL (74-106) Calcium Level 9.0 MG/DL (8.5-10.1) 8.8 MG/DL (8.5-10.1) Phosphorus Level 3.2 MG/DL (2.5-4.9) Magnesium Level 2.2 MG/DL (1.8-2.4) 2.2 MG/DL (1.8-2.4) Total Bilirubin 1.0 MG/DL (0.2-1.0) Aspartate Amino Transf (AST/SGOT) 30 U/L (15-37) Alanine Aminotransferase (ALT/SGPT) 17 U/L (12-78) Alkaline Phosphatase 59 U/L (46-116) Pro-B-Type Natriuretic Peptide 5056 pg/mL (0-125) Total Protein 6.8 G/DL (6.4-8.2) Albumin 3.1 G/DL (3.4-5.0) Globulin 3.7 g/dL Albumin/Globulin Ratio 0.8 (1.0-2.7) Vitamin B12 Level 585 PG/ML (193-986) Laboratory Tests Test 11/27/19 04:37 Sodium Level 143 MMOL/L (136-145) Potassium Level 3.6 MMOL/L (3.5-5.1) Chloride Level 105 MMOL/L (98-107) Carbon Dioxide Level 30 MMOL/L (21-32) Anion Gap 8 mmol/L (5-15) Blood Urea Nitrogen 13 mg/dL (7-18) Creatinine 1.1 MG/DL (0.55-1.30) Estimat Glomerular Filtration Rate > 60 mL/min (>60) Glucose Level 94 MG/DL (74-106) Calcium Level 8.8 MG/DL (8.5-10.1) Magnesium Level 2.2 MG/DL (1.8-2.4) Current Medications Medications (Trade) Dose Ordered Sig/Javy Route PRN Reason Start Time Stop Time Status Last Admin Dose Admin Acetaminophen (Tylenol) 650 mg Q4H PRN ORAL Mild Pain (Pain Scale 1-3) 11/23/19 13:15 12/23/19 13:14 Amlodipine Besylate (Norvasc) 10 mg DAILY ORAL 11/24/19 09:00 12/24/19 08:59 11/27/19 08:18 Amoxicillin/ Clavulanate Potassium (Augmentin) 875 mg Q12HR ORAL 11/25/19 21:00 12/02/19 20:59 11/27/19 08:18 Aspirin (Ecotrin) 81 mg DAILY ORAL 11/23/19 13:30 01/07/20 13:29 11/27/19 08:17 Carvedilol (Coreg) 6.25 mg EVERY 12 HOURS ORAL 11/25/19 21:00 12/25/19 20:59 11/27/19 08:18 Ciprofloxacin (Cipro 500mg tab) 500 mg Q12HR ORAL 11/24/19 21:00 12/01/19 20:59 11/27/19 08:18 Furosemide (Lasix) 20 mg DAILY ORAL 11/25/19 09:00 12/25/19 08:59 11/27/19 08:17 Haloperidol Lactate (Haldol) 5 mg Q6H PRN IM Agitation 11/23/19 21:00 01/07/20 17:44 11/26/19 02:18 Hydralazine HCl (Apresoline) 10 mg Q4H PRN IV SBP>160 11/23/19 13:15 02/21/20 13:14 11/25/19 11:21 Ondansetron HCl (Zofran) 4 mg Q6H PRN IVP Nausea & Vomiting 11/23/19 13:15 12/23/19 13:14 Quetiapine Fumarate (SEROqueL) 25 mg BEDTIME ORAL 11/27/19 21:00 01/11/20 20:59 Darya Fagan MD Nov 27, 2019 15:43
[2019-11-27 16:00] VITALS: BP 141/69
--- NOTE | 2019-11-27 19:18 | NUR ---
HAND-OFF: Report given to Denise.
[2019-11-27 20:00] VITALS: BP 142/88
--- NOTE | 2019-11-27 20:14 | Nephrology Progress Note ---
Assessment/Plan Plan #sepsis #fever #dementia #h/o myelodysplastic syndrome #HTN #HLD - lasix 20mg daily - repleted lytes - add amlodipine 10 - add coreg 6.25mg BID - lasix 20mg daily - on augmetin - follow cx - r/o COVID -> neg - cardiology eval - avoid nephrotoxins - monitor mag and phos daily Subjective ROS Limited/Unobtainable: Yes Subjective WBC downtrening K low -repeted hemoglobin stable getting diuresed Objective Objective Last 24 Hour Vital Signs Date Time Temp Pulse Resp B/P (MAP) Pulse Ox O2 Delivery O2 Flow Rate FiO2 11/27/19 16:00 96.8 71 18 141/69 (93) 98 11/27/19 12:33 67 11/27/19 12:07 97.9 65 18 134/64 (87) 98 11/27/19 09:10 Room Air 11/27/19 08:49 58 11/27/19 08:18 68 152/70 11/27/19 08:18 68 152/70 11/27/19 08:00 98.8 68 20 152/70 (97) 98 11/27/19 04:00 98.5 70 20 145/73 (97) 97 11/27/19 04:00 61 11/27/19 00:00 60 11/27/19 00:00 97.6 66 20 143/71 (95) 98 11/26/19 21:09 74 151/77 11/26/19 21:00 Room Air Intake and Output 11/26/19 11/27/19 19:00 07:00 Intake Total 340 ml Output Total 400 ml Balance -60 ml Intake Oral 340 ml Output Urine Total 400 ml # Voids 9 3 Laboratory Tests 11/27/19 04:37: Sodium Level 143, Potassium Level 3.6, Chloride Level 105, Carbon Dioxide Level 30, Anion Gap 8, Blood Urea Nitrogen 13, Creatinine 1.1, Estimat Glomerular Filtration Rate > 60, Glucose Level 94, Calcium Level 8.8, Magnesium Level 2.2 Height (Feet): 6 Height (Inches): 2.00 Weight (Pounds): 174 Objective General Appearance: no apparent distress, lethargic, confused Lines, tubes and drains: peripheral HEENT: normocephalic Neck: non-tender, normal alignment, supple, normal inspection Respiratory/Chest: chest wall non-tender, lungs clear Cardiovascular/Chest: normal peripheral pulses, normal rate, regular rhythm Abdomen: normal bowel sounds, non tender, soft, no organomegaly Extremities: normal range of motion, non-tender, normal inspection, no calf tenderness Skin Exam: normal pigmentation, warm/dry Neurologic: 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 Nov 27, 2019 20:14
--- NOTE | 2019-11-27 22:54 | Internal Med Progress Note ---
Subjective Date of Service: Nov 27, 2019 Physician Name Preeti Alfaro Attending Physician Preeti Alfaro MD Current Medications Medications (Trade) Dose Ordered Sig/Javy Route PRN Reason Start Time Stop Time Status Last Admin Dose Admin Acetaminophen (Tylenol) 650 mg Q4H PRN ORAL Mild Pain (Pain Scale 1-3) 11/23/19 13:15 12/23/19 13:14 Amlodipine Besylate (Norvasc) 10 mg DAILY ORAL 11/24/19 09:00 12/24/19 08:59 11/27/19 08:18 Amoxicillin/ Clavulanate Potassium (Augmentin) 875 mg Q12HR ORAL 11/25/19 21:00 12/02/19 20:59 11/27/19 08:18 Aspirin (Ecotrin) 81 mg DAILY ORAL 11/23/19 13:30 01/07/20 13:29 11/27/19 08:17 Carvedilol (Coreg) 6.25 mg EVERY 12 HOURS ORAL 11/25/19 21:00 12/25/19 20:59 11/27/19 08:18 Ciprofloxacin (Cipro 500mg tab) 500 mg Q12HR ORAL 11/24/19 21:00 12/01/19 20:59 11/27/19 08:18 Donepezil HCl (Aricept) 5 mg BID ORAL 11/28/19 09:00 12/28/19 08:59 Furosemide (Lasix) 20 mg DAILY ORAL 11/25/19 09:00 12/25/19 08:59 11/27/19 08:17 Haloperidol Lactate (Haldol) 5 mg Q6H PRN IM Agitation 11/23/19 21:00 01/07/20 17:44 11/26/19 02:18 Hydralazine HCl (Apresoline) 10 mg Q4H PRN IV SBP>160 11/23/19 13:15 02/21/20 13:14 11/25/19 11:21 Memantine (Namenda) 10 mg BID ORAL 11/28/19 09:00 12/28/19 08:59 Ondansetron HCl (Zofran) 4 mg Q6H PRN IVP Nausea & Vomiting 11/23/19 13:15 12/23/19 13:14 Oxybutynin Chloride (Ditropan) 5 mg BID ORAL 11/28/19 09:00 12/28/19 08:59 Quetiapine Fumarate (SEROqueL) 50 mg BEDTIME ORAL 11/28/19 21:00 01/12/20 20:59 Allergies: Coded Allergies: No Known Allergies (Unverified , 01/10/13) ROS Limited/Unobtainable: Yes Constitutional: Reports: no symptoms Cardiovascular: Reports: no symptoms Respiratory: Reports: cough Gastrointestinal/Abdominal: Reports: no symptoms Genitourinary: Reports: no symptoms Neurologic/Psychiatric: Reports: anxiety, emotional problems All Systems: reviewed and negative except above Objective Last Vital Signs Date Time Temp Pulse Resp B/P (MAP) Pulse Ox O2 Delivery O2 Flow Rate FiO2 11/27/19 20:00 75 11/27/19 16:00 96.8 18 141/69 (93) 98 11/27/19 09:10 Room Air General Appearance: no apparent distress EENT: pharynx normal Neck: supple Cardiovascular: regular rhythm Respiratory/Chest: rhonchi - right Abdomen: normal bowel sounds, non tender, soft Genitourinary/Rectal: normal genital exam Neurologic: alert, responsive, disoriented Skin: warm/dry Laboratory Tests Test 11/27/19 04:37 Sodium Level 143 MMOL/L (136-145) Potassium Level 3.6 MMOL/L (3.5-5.1) Chloride Level 105 MMOL/L (98-107) Carbon Dioxide Level 30 MMOL/L (21-32) Anion Gap 8 mmol/L (5-15) Blood Urea Nitrogen 13 mg/dL (7-18) Creatinine 1.1 MG/DL (0.55-1.30) Estimat Glomerular Filtration Rate > 60 mL/min (>60) Glucose Level 94 MG/DL (74-106) Calcium Level 8.8 MG/DL (8.5-10.1) Magnesium Level 2.2 MG/DL (1.8-2.4) Intake and Output 11/26/19 11/27/19 19:00 07:00 Intake Total 340 ml Output Total 400 ml Balance -60 ml Intake Oral 340 ml Output Urine Total 400 ml # Voids 9 3 Assessment/Plan Status: stable, progressing, tolerating diet Assessment/Plan IMPRESSION: FEVER right lung pneumonia vs mass SIRS elevated pro BNP rule out CHF elevated troponin pancytopenia dementia with psychotic behavior PLAN: TTE reviewed ruled out covid-[address] wo contrast noted lasix PO abx refuses IV abx f/u cultures electrolyte replete as needed cardio f/u pulm eval psych f/u soft restraint as needed for safey and fall prevention asa BP control DC planning friday home PREETI ALFARO MD INTERNAL MEDICINE [phone] TIME OF NOTE MAY NOT BE THE ACTUAL ENCOUNTER TIME FULL CODE TIME SPENT TODAY over 35 MINUTES Preeti Alfaro MD Nov 27, 2019 22:54
[2019-11-28] VITALS: BP 160/75
[2019-11-28 04:00] VITALS: BP 147/76
[2019-11-28 08:00] VITALS: BP 160/89
--- NOTE | 2019-11-28 08:29 | NUR ---
NURSE NOTES:handoff received from MANDEEP Lopez. Patient received in bilateral wrist restraints, patient confused but responsive, denies pain at this time. Patient has Iv site clean dry and intact, saline locked, bed in the low and locked position with call light within reach. will continue to monitor patient.
[2019-11-28] MEDS: Ciprofloxacin 500mg tab ORAL SCH ×2 (09:15→20:32)
[2019-11-28] MEDS: Oxybutynin 5mg tab ORAL SCH ×2 (09:15→17:38)
[2019-11-28] MEDS: Memantine 10mg tab ORAL SCH ×2 (09:15→17:38)
[2019-11-28] MEDS: Augmentin 875mg Tab ORAL SCH ×2 (09:15→20:32)
[2019-11-28] MEDS: Carvedilol 6.25mg Tab ORAL SCH (09:15)
[2019-11-28] MEDS: Aspirin EC 81mg tab ORAL SCH (09:15)
[2019-11-28] MEDS: Donepezil 5mg Tab ORAL SCH ×2 (09:15→17:38)
--- NOTE | 2019-11-28 09:33 | Diagnostic Imaging Report ---
EXAM: XR Chest, 1 View CLINICAL HISTORY: INFECT TECHNIQUE: Frontal view of the chest. COMPARISON: Chest x-ray 11/25/19 FINDINGS: Lungs: No significant change in the right mid lung opacity. No new findings. Pleural space: Unremarkable. No pneumothorax. Heart: Unremarkable. No cardiomegaly. Mediastinum: Unremarkable. Bones/joints: Mild degenerative changes of the spine and right shoulder. Vasculature: Aortic knob calcification. IMPRESSION: No significant change in the right mid lung opacity. No new findings.
--- NOTE | 2019-11-28 10:09 | Nephrology Progress Note ---
Assessment/Plan Plan #sepsis #fever #dementia #h/o myelodysplastic syndrome #HTN #HLD - lasix 20mg daily - repleted lytes - add amlodipine 10 - add coreg 6.25mg BID - lasix 20mg daily - on augmetin - follow cx - r/o COVID -> neg - resume [employer] psych meds - cardiology eval - avoid nephrotoxins - monitor mag and phos daily Subjective ROS Limited/Unobtainable: Yes Subjective Discussed with daughter will resume [employer] psych meds K low -repeted hemoglobin stable getting diuresed Objective Objective Last 24 Hour Vital Signs Date Time Temp Pulse Resp B/P (MAP) Pulse Ox O2 Delivery O2 Flow Rate FiO2 11/28/19 09:15 70 160/89 11/28/19 09:15 70 160/89 11/28/19 09:00 Room Air 11/28/19 08:00 98.1 70 18 160/89 (112) 100 11/28/19 04:00 97.9 65 19 147/76 (99) 98 11/28/19 04:00 75 11/28/19 00:00 72 11/28/19 00:00 97.7 74 18 160/75 (103) 93 11/27/19 21:00 73 142/88 11/27/19 21:00 Room Air 11/27/19 20:00 75 11/27/19 20:00 98.6 73 20 142/88 (106) 95 11/27/19 16:00 96.8 71 18 141/69 (93) 98 11/27/19 12:33 67 11/27/19 12:07 97.9 65 18 134/64 (87) 98 Intake and Output 11/27/19 11/28/19 18:59 06:59 Intake Total 1400 ml 300 ml Output Total 200 ml 350 ml Balance 1200 ml -50 ml Intake Oral 1400 ml 300 ml Output Urine Total 200 ml 350 ml # Voids 2 Height (Feet): 6 Height (Inches): 2.00 Weight (Pounds): 174 Objective General Appearance: no apparent distress, lethargic, confused Lines, tubes and drains: peripheral HEENT: normocephalic Neck: non-tender, normal alignment, supple, normal inspection Respiratory/Chest: chest wall non-tender, lungs clear Cardiovascular/Chest: normal peripheral pulses, normal rate, regular rhythm Abdomen: normal bowel sounds, non tender, soft, no organomegaly Extremities: normal range of motion, non-tender, normal inspection, no calf tenderness Skin Exam: normal pigmentation, warm/dry Neurologic: transportation lead II-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 Nov 28, 2019 10:09
[2019-11-28 12:00] VITALS: BP 120/75
[2019-11-28 12:04] LABS: HEMOGLOBIN 10.9 G/DL (14.2-18.0); MEAN CORPUSCULAR VOLUME 104 FL (80-99); PLATELET COUNT 169 K/UL (150-450); RED BLOOD COUNT 3.47 M/UL (4.70-6.10); RED CELL DISTRIBUTION WIDTH 13.1 % (11.6-14.8)
[2019-11-28 12:06] LABS: WHITE BLOOD COUNT 2.1 K/UL (4.8-10.8)
[2019-11-28 12:17] LABS: ALANINE AMINOTRANSFERASE 17 U/L (12-78); ALBUMIN 3.2 G/DL (3.4-5.0); ALBUMIN/GLOBULIN RATIO 0.8 (1.0-2.7); ALKALINE PHOSPHATASE 62 U/L (46-116); ANION GAP 6 mmol/L (5-15); ASPARTATE AMINO TRANSFERASE 27 U/L (15-37); BILIRUBIN,TOTAL 0.9 MG/DL (0.2-1.0); BLOOD UREA NITROGEN 18 mg/dL (7-18); CALCIUM 8.8 MG/DL (8.5-10.1); CARBON DIOXIDE 33 MMOL/L (21-32); CHLORIDE 106 MMOL/L (98-107); CREATININE 1.2 MG/DL (0.55-1.30); POTASSIUM 3.6 MMOL/L (3.5-5.1); SODIUM 145 MMOL/L (136-145)
--- NOTE | 2019-11-28 12:28 | Pulmonology Progress Note ---
Subjective ROS Limited/Unobtainable: Yes Interval Events: None new Constitutional: Denies: fever HEENT: Repors: no symptoms Respiratory: Reports: no symptoms Gastrointestinal/Abdominal: Denies: nausea, vomiting, diarrhea Genitourinary: Reports: no symptoms Neurologic: Reports: no symptoms Psychiatric: Denies: depression Skin: Denies: rash Musculoskeletal: Denies: pain Allergies: Coded Allergies: No Known Allergies (Unverified , 01/10/13) All Systems: reviewed and negative except above Objective Last 24 Hour Vital Signs Date Time Temp Pulse Resp B/P (MAP) Pulse Ox O2 Delivery O2 Flow Rate FiO2 11/28/19 09:15 70 160/89 11/28/19 09:15 70 160/89 11/28/19 09:00 Room Air 11/28/19 08:00 70 11/28/19 08:00 98.1 70 18 160/89 (112) 100 11/28/19 04:00 97.9 65 19 147/76 (99) 98 11/28/19 04:00 75 11/28/19 00:00 72 11/28/19 00:00 97.7 74 18 160/75 (103) 93 11/27/19 21:00 73 142/88 11/27/19 21:00 Room Air 11/27/19 20:00 75 11/27/19 20:00 98.6 73 20 142/88 (106) 95 11/27/19 16:00 96.8 71 18 141/69 (93) 98 11/27/19 12:33 67 Intake and Output 11/27/19 11/28/19 19:00 07:00 Intake Total 1400 ml 300 ml Output Total 200 ml 350 ml Balance 1200 ml -50 ml Intake Oral 1400 ml 300 ml Output Urine Total 200 ml 350 ml # Voids 2 General Appearance: no acute distress Respiratory: chest wall non-tender, lungs clear Cardiovascular: normal peripheral pulses Abdomen: normal bowel sounds Extremities: no cyanosis Laboratory Tests 11/28/19 11:15: White Blood Count 2.1*L, Red Blood Count 3.47L, Hemoglobin 10.9L, Hematocrit 36.0L, Mean Corpuscular Volume 104H, Mean Corpuscular Hemoglobin 31.4H, Mean Corpuscular Hemoglobin Concent 30.2L, Red Cell Distribution Width 13.1, Platelet Count 169, Mean Platelet Volume 6.1L, Neutrophils (%) (Auto) , Lymphocytes (%) (Auto) , Monocytes (%) (Auto) , Eosinophils (%) (Auto) , Basophils (%) (Auto) , Neutrophils % (Manual) [Pending], Lymphocytes % (Manual) [Pending], Platelet Estimate [Pending], Platelet Morphology [Pending] 11/28/19 11:35: Sodium Level 145, Potassium Level 3.6, Chloride Level 106, Carbon Dioxide Level 33H, Anion Gap 6, Blood Urea Nitrogen 18, Creatinine 1.2, Estimat Glomerular Filtration Rate > 60, Glucose Level 99, Calcium Level 8.8, Total Bilirubin 0.9, Aspartate Amino Transf (AST/SGOT) 27, Alanine Aminotransferase (ALT/SGPT) 17, Alkaline Phosphatase 62, Total Protein 7.0, Albumin 3.2L, Globulin 3.8, Albumin/ Globulin Ratio 0.8L Current Medications Medications (Trade) Dose Ordered Sig/Javy Route PRN Reason Start Time Stop Time Status Last Admin Dose Admin Acetaminophen (Tylenol) 650 mg Q4H PRN ORAL Mild Pain (Pain Scale 1-3) 11/23/19 13:15 12/23/19 13:14 Amlodipine Besylate (Norvasc) 10 mg DAILY ORAL 11/24/19 09:00 12/24/19 08:59 11/28/19 09:15 Amoxicillin/ Clavulanate Potassium (Augmentin) 875 mg Q12HR ORAL 11/25/19 21:00 12/02/19 20:59 11/28/19 09:15 Aspirin (Ecotrin) 81 mg DAILY ORAL 11/23/19 13:30 01/07/20 13:29 11/28/19 09:15 Carvedilol (Coreg) 12.5 mg EVERY 12 HOURS ORAL 11/28/19 21:00 12/25/19 20:59 Ciprofloxacin (Cipro 500mg tab) 500 mg Q12HR ORAL 11/24/19 21:00 12/01/19 20:59 11/28/19 09:15 Donepezil HCl (Aricept) 5 mg BID ORAL 11/28/19 09:00 12/28/19 08:59 11/28/19 09:15 Furosemide (Lasix) 20 mg DAILY ORAL 11/25/19 09:00 12/25/19 08:59 11/28/19 09:15 Haloperidol Lactate (Haldol) 5 mg Q6H PRN IM Agitation 11/23/19 21:00 01/07/20 17:44 11/26/19 02:18 Hydralazine HCl (Apresoline) 10 mg Q4H PRN IV SBP>160 11/23/19 13:15 02/21/20 13:14 11/25/19 11:21 Memantine (Namenda) 10 mg BID ORAL 11/28/19 09:00 12/28/19 08:59 11/28/19 09:15 Ondansetron HCl (Zofran) 4 mg Q6H PRN IVP Nausea & Vomiting 11/23/19 13:15 12/23/19 13:14 Oxybutynin Chloride (Ditropan) 5 mg BID ORAL 11/28/19 09:00 12/28/19 08:59 11/28/19 09:15 Quetiapine Fumarate (SEROqueL) 50 mg BEDTIME ORAL 11/28/19 21:00 01/12/20 20:59 Assessment/Plan Assessment/Plan IMPRESSION: 1. Right lung pneumonia. 2. Dementia. 3. Hypertension. DISCUSSION: Abx per ID Reviewed chest CT Hs resolving pneumonia Oxygen and pulmonary hygiene Priscilla Avila Omar Syed MD Nov 28, 2019 12:28
--- NOTE | 2019-11-28 12:41 | Internal Med Progress Note ---
Subjective Date of Service: Nov 28, 2019 Physician Name Preeti Alfaro Attending Physician Preeti Alfaro MD Current Medications Medications (Trade) Dose Ordered Sig/Javy Route PRN Reason Start Time Stop Time Status Last Admin Dose Admin Acetaminophen (Tylenol) 650 mg Q4H PRN ORAL Mild Pain (Pain Scale 1-3) 11/23/19 13:15 12/23/19 13:14 Amlodipine Besylate (Norvasc) 10 mg DAILY ORAL 11/24/19 09:00 12/24/19 08:59 11/28/19 09:15 Amoxicillin/ Clavulanate Potassium (Augmentin) 875 mg Q12HR ORAL 11/25/19 21:00 12/02/19 20:59 11/28/19 09:15 Aspirin (Ecotrin) 81 mg DAILY ORAL 11/23/19 13:30 01/07/20 13:29 11/28/19 09:15 Carvedilol (Coreg) 12.5 mg EVERY 12 HOURS ORAL 11/28/19 21:00 12/25/19 20:59 Ciprofloxacin (Cipro 500mg tab) 500 mg Q12HR ORAL 11/24/19 21:00 12/01/19 20:59 11/28/19 09:15 Donepezil HCl (Aricept) 5 mg BID ORAL 11/28/19 09:00 12/28/19 08:59 11/28/19 09:15 Furosemide (Lasix) 20 mg DAILY ORAL 11/25/19 09:00 12/25/19 08:59 11/28/19 09:15 Haloperidol Lactate (Haldol) 5 mg Q6H PRN IM Agitation 11/23/19 21:00 01/07/20 17:44 11/26/19 02:18 Hydralazine HCl (Apresoline) 10 mg Q4H PRN IV SBP>160 11/23/19 13:15 02/21/20 13:14 11/25/19 11:21 Memantine (Namenda) 10 mg BID ORAL 11/28/19 09:00 12/28/19 08:59 11/28/19 09:15 Ondansetron HCl (Zofran) 4 mg Q6H PRN IVP Nausea & Vomiting 11/23/19 13:15 12/23/19 13:14 Oxybutynin Chloride (Ditropan) 5 mg BID ORAL 11/28/19 09:00 12/28/19 08:59 11/28/19 09:15 Quetiapine Fumarate (SEROqueL) 50 mg BEDTIME ORAL 11/28/19 21:00 01/12/20 20:59 Allergies: Coded Allergies: No Known Allergies (Unverified , 01/10/13) ROS Limited/Unobtainable: Yes Constitutional: Reports: no symptoms HEENT: Reports: no symptoms Cardiovascular: Reports: no symptoms Respiratory: Reports: cough, shortness of breath, sputum Gastrointestinal/Abdominal: Reports: no symptoms Genitourinary: Reports: no symptoms Neurologic/Psychiatric: Reports: anxiety All Systems: reviewed and negative except above Objective Last Vital Signs Date Time Temp Pulse Resp B/P (MAP) Pulse Ox O2 Delivery O2 Flow Rate FiO2 11/28/19 09:15 70 160/89 11/28/19 09:00 Room Air 11/28/19 08:00 98.1 18 100 General Appearance: alert EENT: pharynx normal Neck: supple Cardiovascular: normal rate, regular rhythm, no JVD Respiratory/Chest: rhonchi - right Abdomen: normal bowel sounds, non tender, soft, no mass Genitourinary/Rectal: normal genital exam Neurologic: alert, responsive, disoriented Skin: warm/dry Laboratory Tests Test 11/28/19 11:15 11/28/19 11:35 White Blood Count 2.1 K/UL (4.8-10.8) *L Red Blood Count 3.47 M/UL (4.70-6.10) L Hemoglobin 10.9 G/DL (14.2-18.0) L Hematocrit 36.0 % (42.0-52.0) L Mean Corpuscular Volume 104 FL (80-99) H Mean Corpuscular Hemoglobin 31.4 PG (27.0-31.0) H Mean Corpuscular Hemoglobin Concent 30.2 G/DL (32.0-36.0) L Red Cell Distribution Width 13.1 % (11.6-14.8) Platelet Count 169 K/UL (150-450) Mean Platelet Volume 6.1 FL (6.5-10.1) L Neutrophils (%) (Auto) % (45.0-75.0) Lymphocytes (%) (Auto) % (20.0-45.0) Monocytes (%) (Auto) % (1.0-10.0) Eosinophils (%) (Auto) % (0.0-3.0) Basophils (%) (Auto) % (0.0-2.0) Neutrophils % (Manual) Pending Lymphocytes % (Manual) Pending Platelet Estimate Pending Platelet Morphology Pending Sodium Level 145 MMOL/L (136-145) Potassium Level 3.6 MMOL/L (3.5-5.1) Chloride Level 106 MMOL/L (98-107) Carbon Dioxide Level 33 MMOL/L (21-32) H Anion Gap 6 mmol/L (5-15) Blood Urea Nitrogen 18 mg/dL (7-18) Creatinine 1.2 MG/DL (0.55-1.30) Estimat Glomerular Filtration Rate > 60 mL/min (>60) Glucose Level 99 MG/DL (74-106) Calcium Level 8.8 MG/DL (8.5-10.1) Total Bilirubin 0.9 MG/DL (0.2-1.0) Aspartate Amino Transf (AST/SGOT) 27 U/L (15-37) Alanine Aminotransferase (ALT/SGPT) 17 U/L (12-78) Alkaline Phosphatase 62 U/L (46-116) Total Protein 7.0 G/DL (6.4-8.2) Albumin 3.2 G/DL (3.4-5.0) L Globulin 3.8 g/dL Albumin/Globulin Ratio 0.8 (1.0-2.7) L Intake and Output 11/27/19 11/28/19 19:00 07:00 Intake Total 1400 ml 300 ml Output Total 200 ml 350 ml Balance 1200 ml -50 ml Intake Oral 1400 ml 300 ml Output Urine Total 200 ml 350 ml # Voids 2 Assessment/Plan Status: doing well, stable, tolerating diet Assessment/Plan IMPRESSION: FEVER right lung pneumonia HTN SIRS elevated pro BNP rule out CHF elevated troponin pancytopenia dementia with psychotic behavior PLAN: add lisinopril 20 mg po daily TTE reviewed ruled out covid-[address] wo contrast noted lasix PO abx refuses IV abx f/u cultures electrolyte replete as needed cardio f/u pulm f/u psych f/u soft restraint as needed for safey and fall prevention asa BP control DC planning friday home PREETI ALFARO MD INTERNAL MEDICINE [phone] TIME OF NOTE MAY NOT BE THE ACTUAL ENCOUNTER TIME FULL CODE TIME SPENT TODAY over 35 MINUTES Preeti Alfaro MD Nov 28, 2019 12:41
--- NOTE | 2019-11-28 12:52 | NUR ---
NURSE NOTES:Placed Condom catheter on patient as patient having frequent urination, to help keep patient dry.
[2019-11-28] MEDS: Lisinopril 20mg tab ORAL SCH (13:00)
--- NOTE | 2019-11-28 13:04 | NUR ---
NURSE NOTES:Jessica Gilbert called for update on patient, informed her that patient is doing well, watching TV after having lunch. She enquired about patient dementia medication and I informed her that he is receiving Namenda and Aricept. Jessica stated " yesterday I came and visited him and he did not know who I was"
--- NOTE | 2019-11-28 14:33 | NUR ---
NURSE NOTES:Bed alarm went off in patient room, patient at edge of bed, out of restraints. Patient states he needs to use the bathroom, assisted patient to bed side commode and changed the soiled bed sheets. Patient placed back in bed and in bilateral soft wrist restraints. Patient unsteady.
[2019-11-28 16:00] VITALS: BP 123/61
--- NOTE | 2019-11-28 19:22 | NUR ---
NURSE NOTES: Received report from Robert Hunter RN. Pt is in stable condition, denies pain at this time. Will continue plan of care and close monitoring.
--- NOTE | 2019-11-28 19:24 | NUR ---
HAND-OFF: Report given to Irma gonzalez RN. .
[2019-11-28 20:00] VITALS: BP 142/61
[2019-11-28] MEDS: Carvedilol 12.5mg tab ORAL SCH (20:34)
--- NOTE | 2019-11-28 20:54 | Cardiology Progress Note ---
Assessment/Plan Status: stable Assessment/Plan Assessment/Plan Status: stable Assessment/Plan: ASSESSMENT Fever unknown origin lung mass cardiomegaly Rule out COVID Troponin elevation PLAN: Serial EKG/Troponin Monitor on telemetry Empiric Abx Echocardiogram with normal LV function but elevated filling pressures grade 2 diastolic dysfunction and pulmonary hypertension Continue diuresis to lower LVEDP and PAP Continue Norvasc for hypertension Subjective Cardiovascular: Reports: no symptoms Respiratory: Reports: no symptoms Gastrointestinal/Abdominal: Reports: no symptoms Genitourinary: Reports: no symptoms Subjective No acute events, TTE with normal LV function and moderate TR pulmonary hypertension and elevated right sided pressures Objective Last 24 Hour Vital Signs Date Time Temp Pulse Resp B/P (MAP) Pulse Ox O2 Delivery O2 Flow Rate FiO2 11/28/19 20:34 63 142/61 11/28/19 16:00 63 11/28/19 16:00 98.9 61 18 123/61 (81) 98 11/28/19 13:00 120/75 11/28/19 12:00 70 11/28/19 12:00 97.9 65 20 120/75 (90) 100 11/28/19 09:15 70 160/89 11/28/19 09:15 70 160/89 11/28/19 09:00 Room Air 11/28/19 08:00 70 11/28/19 08:00 98.1 70 18 160/89 (112) 100 11/28/19 04:00 97.9 65 19 147/76 (99) 98 11/28/19 04:00 75 11/28/19 00:00 72 11/28/19 00:00 97.7 74 18 160/75 (103) 93 11/27/19 21:00 73 142/88 11/27/19 21:00 Room Air General Appearance: no apparent distress, alert EENT: normal ENT inspection, TMs normal, pharynx normal Neck: non-tender, normal alignment, supple, normal inspection, no JVD Rhythm: SB Cardiovascular: normal rate, regular rhythm Respiratory/Chest: lungs clear, normal breath sounds Abdomen: normal bowel sounds, non tender, no mass Extremities: normal range of motion, non-tender, normal inspection 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, no motor/sensory deficits Intake and Output 11/27/19 11/28/19 19:00 07:00 Intake Total 1400 ml 300 ml Output Total 200 ml 350 ml Balance 1200 ml -50 ml Intake Oral 1400 ml 300 ml Output Urine Total 200 ml 350 ml # Voids 2 Laboratory Tests Test 11/28/19 11:15 11/28/19 11:35 White Blood Count 2.1 K/UL (4.8-10.8) *L Red Blood Count 3.47 M/UL (4.70-6.10) L Hemoglobin 10.9 G/DL (14.2-18.0) L Hematocrit 36.0 % (42.0-52.0) L Mean Corpuscular Volume 104 FL (80-99) H Mean Corpuscular Hemoglobin 31.4 PG (27.0-31.0) H Mean Corpuscular Hemoglobin Concent 30.2 G/DL (32.0-36.0) L Red Cell Distribution Width 13.1 % (11.6-14.8) Platelet Count 169 K/UL (150-450) Mean Platelet Volume 6.1 FL (6.5-10.1) L Neutrophils (%) (Auto) % (45.0-75.0) Lymphocytes (%) (Auto) % (20.0-45.0) Monocytes (%) (Auto) % (1.0-10.0) Eosinophils (%) (Auto) % (0.0-3.0) Basophils (%) (Auto) % (0.0-2.0) Differential Total Cells Counted 100 Neutrophils % (Manual) 47 % (45-75) Lymphocytes % (Manual) 35 % (20-45) Monocytes % (Manual) 17 % (1-10) H Eosinophils % (Manual) 1 % (0-3) Basophils % (Manual) 0 % (0-2) Band Neutrophils 0 % (0-8) Platelet Estimate Adequate Platelet Morphology Normal Hypochromasia 1+ Macrocytosis 1+ Sodium Level 145 MMOL/L (136-145) Potassium Level 3.6 MMOL/L (3.5-5.1) Chloride Level 106 MMOL/L (98-107) Carbon Dioxide Level 33 MMOL/L (21-32) H Anion Gap 6 mmol/L (5-15) Blood Urea Nitrogen 18 mg/dL (7-18) Creatinine 1.2 MG/DL (0.55-1.30) Estimat Glomerular Filtration Rate > 60 mL/min (>60) Glucose Level 99 MG/DL (74-106) Calcium Level 8.8 MG/DL (8.5-10.1) Total Bilirubin 0.9 MG/DL (0.2-1.0) Aspartate Amino Transf (AST/SGOT) 27 U/L (15-37) Alanine Aminotransferase (ALT/SGPT) 17 U/L (12-78) Alkaline Phosphatase 62 U/L (46-116) Total Protein 7.0 G/DL (6.4-8.2) Albumin 3.2 G/DL (3.4-5.0) L Globulin 3.8 g/dL Albumin/Globulin Ratio 0.8 (1.0-2.7) L Tenzin Mitchell MD Nov 28, 2019 20:54
--- NOTE | 2019-11-28 21:50 | Psych Consult Progress Note ---
Psychiatry Progress Note Psychiatry Progress Note Medications Current Medications Medications (Trade) Dose Ordered Sig/Javy Route PRN Reason Start Time Stop Time Status Last Admin Dose Admin Acetaminophen (Tylenol) 650 mg Q4H PRN ORAL Mild Pain (Pain Scale 1-3) 11/23/19 13:15 12/23/19 13:14 Amlodipine Besylate (Norvasc) 10 mg DAILY ORAL 11/24/19 09:00 12/24/19 08:59 11/28/19 09:15 Amoxicillin/ Clavulanate Potassium (Augmentin) 875 mg Q12HR ORAL 11/25/19 21:00 12/02/19 20:59 11/28/19 20:32 Aspirin (Ecotrin) 81 mg DAILY ORAL 11/23/19 13:30 01/07/20 13:29 11/28/19 09:15 Carvedilol (Coreg) 12.5 mg EVERY 12 HOURS ORAL 11/28/19 21:00 12/25/19 20:59 11/28/19 20:34 Ciprofloxacin (Cipro 500mg tab) 500 mg Q12HR ORAL 11/24/19 21:00 12/01/19 20:59 11/28/19 20:32 Donepezil HCl (Aricept) 5 mg BID ORAL 11/28/19 09:00 12/28/19 08:59 11/28/19 17:38 Furosemide (Lasix) 20 mg DAILY ORAL 11/25/19 09:00 12/25/19 08:59 11/28/19 09:15 Haloperidol Lactate (Haldol) 5 mg Q6H PRN IM Agitation 11/23/19 21:00 01/07/20 17:44 11/26/19 02:18 Hydralazine HCl (Apresoline) 10 mg Q4H PRN IV SBP>160 11/23/19 13:15 02/21/20 13:14 11/25/19 11:21 Lisinopril (PriniviL) 20 mg DAILY ORAL 11/28/19 12:45 12/28/19 12:44 11/28/19 13:00 Memantine (Namenda) 10 mg BID ORAL 11/28/19 09:00 12/28/19 08:59 11/28/19 17:38 Ondansetron HCl (Zofran) 4 mg Q6H PRN IVP Nausea & Vomiting 11/23/19 13:15 12/23/19 13:14 Oxybutynin Chloride (Ditropan) 5 mg BID ORAL 11/28/19 09:00 12/28/19 08:59 11/28/19 17:38 Quetiapine Fumarate (SEROqueL) 50 mg BEDTIME ORAL 11/28/19 21:00 01/12/20 20:59 11/28/19 20:32 Neurological/Psychiatric: Reports: anxiety, depressed, emotional problems Allergies: Coded Allergies: No Known Allergies (Unverified , 01/10/13) Objective Data Height (Feet): 6 Height (Inches): 2.00 Weight (Pounds): 174 General Appearance: alert, confused Additional Comments: alert, disoriented. Mood is neutral, episodes of agitation. Affect is flat. Thought processes, there is a paucity of thought content. Thought content, no suicidal or homicidal ideation. Cognition is impaired. Insight and judgment is impaired. Assessment/Plan Status: stable Assessment/Plan: Dementia with behavior disturbance. PLAN: 1. Haldol 5 mg every 6 hours p.r.n. 2. Seroquel 25 mg p.o. at bedtime. 3. Patient was seen in the presence of the nurse. Mil Mayo MD Nov 28, 2019 21:50
[2019-11-29] VITALS: BP 123/72
[2019-11-29 04:00] VITALS: BP 131/63
--- NOTE | 2019-11-29 07:29 | NUR ---
HAND-OFF: Report given to Kriss Gutiérrez RN. Pt is in stable condition. Plan of care endorsed.
--- NOTE | 2019-11-29 07:30 | NUR ---
NURSE NOTES: Received report from MANDEEP Hernandez. The patient is AAO x1 in bed watching TV. Patient pleasant but confused. No signs of distress or pain. Lungs clear to auscultation bilaterally. Bilateral soft wrist restraints in place due to attempting to remove IV. Radial pulses palpable. L forearm 18 g IV saline-locked, patent, and intact, no signs of redness or infiltration. Bed alarm on, bed low and locked, side rails x3 raised, call light in reach, fall education provided. Will continue to monitor.
[2019-11-29 07:39] LABS: HEMATOCRIT 34.8 % (42.0-52.0); HEMOGLOBIN 10.5 G/DL (14.2-18.0); MEAN CORPUSCULAR VOLUME 105 FL (80-99); PLATELET COUNT 149 K/UL (150-450); RED BLOOD COUNT 3.31 M/UL (4.70-6.10); RED CELL DISTRIBUTION WIDTH 12.7 % (11.6-14.8)
[2019-11-29 07:41] LABS: ANION GAP 5 mmol/L (5-15); BLOOD UREA NITROGEN 24 mg/dL (7-18); CALCIUM 8.8 MG/DL (8.5-10.1); CARBON DIOXIDE 33 MMOL/L (21-32); CHLORIDE 107 MMOL/L (98-107); CREATININE 1.2 MG/DL (0.55-1.30); PHOSPHORUS 3.8 MG/DL (2.5-4.9); POTASSIUM 3.8 MMOL/L (3.5-5.1); SODIUM 145 MMOL/L (136-145)
[2019-11-29 08:00] VITALS: BP 154/64
[2019-11-29] MEDS: Augmentin 875mg Tab ORAL SCH (08:35)
[2019-11-29] MEDS: Donepezil 5mg Tab ORAL SCH (08:35)
[2019-11-29] MEDS: Carvedilol 12.5mg tab ORAL SCH (08:36)
[2019-11-29] MEDS: Memantine 10mg tab ORAL SCH (08:36)
[2019-11-29] MEDS: Oxybutynin 5mg tab ORAL SCH (08:36)
[2019-11-29] MEDS: Ciprofloxacin 500mg tab ORAL SCH (08:36)
[2019-11-29] MEDS: Aspirin EC 81mg tab ORAL SCH (08:36)
[2019-11-29] MEDS: Lisinopril 20mg tab ORAL SCH (08:37)
--- NOTE | 2019-11-29 09:23 | NUR ---
DISCHARGE PLANNING: CM SPOKE TO FAMILY GRANDDAUGHTER (T: [phone] DICK NEUMANN) GRANDDAUGHTER CARES FOR PATIENT GRANDDAUGHTER HAS BEEN ACTIVELY COMMUNICATING VIA PHONE WITH RN'S CM INFORMED DISCHARGE PLANNING IS FOR TODAY GRANDDAUGHTER READY TO ACCEPT PATIENT AND BUSINESS DEVELOPMENT AGENT PATIENT WHEN DISCHARGE CM PAGED MD AND MADE AWARE OF DISCHARGE PLANNING
--- NOTE | 2019-11-29 10:08 | NUR ---
*-* DISCHARGE PLANNING *-* PATIENT HAS BEEN REFERRED TO: [facility] P: [phone] F: [phone]
--- NOTE | 2019-11-29 10:25 | Nephrology Progress Note ---
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 K low -repeted hemoglobin stable getting diuresed Objective Objective Last 24 Hour Vital Signs Date Time Temp Pulse Resp B/P (MAP) Pulse Ox O2 Delivery O2 Flow Rate FiO2 11/29/19 08:37 154/64 11/29/19 08:36 70 154/64 11/29/19 08:36 70 154/64 11/29/19 08:00 68 11/29/19 08:00 99.3 70 18 154/64 (94) 98 11/29/19 04:00 98.2 52 18 131/63 (85) 95 11/29/19 00:01 60 11/29/19 00:00 97.4 56 18 123/72 (89) 98 11/28/19 21:00 Room Air 11/28/19 20:34 63 142/61 11/28/19 20:00 97.7 63 18 142/61 (88) 97 11/28/19 20:00 63 11/28/19 16:00 63 11/28/19 16:00 98.9 61 18 123/61 (81) 98 11/28/19 13:00 120/75 11/28/19 12:00 70 11/28/19 12:00 97.9 65 20 120/75 (90) 100 Intake and Output 11/28/19 11/29/19 19:00 07:00 Intake Total 240 ml Output Total 1200 ml Balance -960 ml Intake Oral 240 ml Output Urine Total 1200 ml # Voids 5 2 Laboratory Tests 11/28/19 11:15: White Blood Count 2.1*L, Red Blood Count 3.47L, Hemoglobin 10.9L, Hematocrit 36.0L, Mean Corpuscular Volume 104H, Mean Corpuscular Hemoglobin 31.4H, Mean Corpuscular Hemoglobin Concent 30.2L, Red Cell Distribution Width 13.1, Platelet Count 169, Mean Platelet Volume 6.1L, Neutrophils (%) (Auto) , Lymphocytes (%) (Auto) , Monocytes (%) (Auto) , Eosinophils (%) (Auto) , Basophils (%) (Auto) , Differential Total Cells Counted 100, Neutrophils % ( Manual) 47, Lymphocytes % (Manual) 35, Monocytes % (Manual) 17H, Eosinophils % ( Manual) 1, Basophils % (Manual) 0, Band Neutrophils 0, Platelet Estimate Adequate, Platelet Morphology Normal, Hypochromasia 1+, Macrocytosis 1+ 11/28/19 11:35: Sodium Level 145, Potassium Level 3.6, Chloride Level 106, Carbon Dioxide Level 33H, Anion Gap 6, Blood Urea Nitrogen 18, Creatinine 1.2, Estimat Glomerular Filtration Rate > 60, Glucose Level 99, Calcium Level 8.8, Total Bilirubin 0.9, Aspartate Amino Transf (AST/SGOT) 27, Alanine Aminotransferase (ALT/SGPT) 17, Alkaline Phosphatase 62, Total Protein 7.0, Albumin 3.2L, Globulin 3.8, Albumin/ Globulin Ratio 0.8L 11/29/19 05:30: White Blood Count 2.0*L, Red Blood Count 3.31L, Hemoglobin 10.5L, Hematocrit 34.8L, Mean Corpuscular Volume 105H, Mean Corpuscular Hemoglobin 31.9H, Mean Corpuscular Hemoglobin Concent 30.3L, Red Cell Distribution Width 12.7, Platelet Count 149L, Mean Platelet Volume 6.6, Neutrophils (%) (Auto) , Lymphocytes (%) (Auto) , Monocytes (%) (Auto) , Eosinophils (%) (Auto) , Basophils (%) (Auto) , Differential Total Cells Counted 100, Neutrophils % ( Manual) 30L, Lymphocytes % (Manual) 50H, Monocytes % (Manual) 14H, Eosinophils % (Manual) 6H, Basophils % (Manual) 0, Band Neutrophils 0, Platelet Estimate Adequate, Platelet Morphology Normal, Hypochromasia 1+, Sodium Level 145, Potassium Level 3.8, Chloride Level 107, Carbon Dioxide Level 33H, Anion Gap 5, Blood Urea Nitrogen 24H, Creatinine 1.2, Estimat Glomerular Filtration Rate > 60 , Glucose Level 95, Calcium Level 8.8, Anisocytosis 1+, Phosphorus Level 3.8, Magnesium Level 2.4 Height (Feet): 6 Height (Inches): 2.00 Weight (Pounds): 174 Objective General Appearance: no apparent distress, lethargic, confused Lines, tubes and drains: peripheral HEENT: normocephalic Neck: non-tender, normal alignment, supple, normal inspection Respiratory/Chest: chest wall non-tender, lungs clear Cardiovascular/Chest: normal peripheral pulses, normal rate, regular rhythm Abdomen: normal bowel sounds, non tender, soft, no organomegaly Extremities: normal range of motion, non-tender, normal inspection, no calf tenderness Skin Exam: normal pigmentation, warm/dry 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 Nov 29, 2019 10:25
--- NOTE | 2019-11-29 10:45 | Pulmonology Progress Note ---
Subjective ROS Limited/Unobtainable: Yes Interval Events: None new Constitutional: Reports: fatigue; Denies: fever HEENT: Repors: no symptoms Respiratory: Reports: no symptoms Gastrointestinal/Abdominal: Denies: nausea, vomiting, diarrhea, constipation Genitourinary: Reports: no symptoms Neurologic: Reports: no symptoms Psychiatric: Reports: no symptoms; Denies: depression Skin: Denies: rash Musculoskeletal: Denies: pain Allergies: Coded Allergies: No Known Allergies (Unverified , 01/10/13) All Systems: reviewed and negative except above Objective Last 24 Hour Vital Signs Date Time Temp Pulse Resp B/P (MAP) Pulse Ox O2 Delivery O2 Flow Rate FiO2 11/29/19 09:00 Room Air 11/29/19 08:37 154/64 11/29/19 08:36 70 154/64 11/29/19 08:36 70 154/64 11/29/19 08:00 68 11/29/19 08:00 99.3 70 18 154/64 (94) 98 11/29/19 04:00 98.2 52 18 131/63 (85) 95 11/29/19 00:01 60 11/29/19 00:00 97.4 56 18 123/72 (89) 98 11/28/19 21:00 Room Air 11/28/19 20:34 63 142/61 11/28/19 20:00 97.7 63 18 142/61 (88) 97 11/28/19 20:00 63 11/28/19 16:00 63 11/28/19 16:00 98.9 61 18 123/61 (81) 98 11/28/19 13:00 120/75 11/28/19 12:00 70 11/28/19 12:00 97.9 65 20 120/75 (90) 100 Intake and Output 11/28/19 11/29/19 19:00 07:00 Intake Total 240 ml Output Total 1200 ml Balance -960 ml Intake Oral 240 ml Output Urine Total 1200 ml # Voids 5 2 General Appearance: no acute distress Respiratory: chest wall non-tender, lungs clear Cardiovascular: normal peripheral pulses Abdomen: normal bowel sounds Extremities: no cyanosis Laboratory Tests 11/28/19 11:15: White Blood Count 2.1*L, Red Blood Count 3.47L, Hemoglobin 10.9L, Hematocrit 36.0L, Mean Corpuscular Volume 104H, Mean Corpuscular Hemoglobin 31.4H, Mean Corpuscular Hemoglobin Concent 30.2L, Red Cell Distribution Width 13.1, Platelet Count 169, Mean Platelet Volume 6.1L, Neutrophils (%) (Auto) , Lymphocytes (%) (Auto) , Monocytes (%) (Auto) , Eosinophils (%) (Auto) , Basophils (%) (Auto) , Differential Total Cells Counted 100, Neutrophils % ( Manual) 47, Lymphocytes % (Manual) 35, Monocytes % (Manual) 17H, Eosinophils % ( Manual) 1, Basophils % (Manual) 0, Band Neutrophils 0, Platelet Estimate Adequate, Platelet Morphology Normal, Hypochromasia 1+, Macrocytosis 1+ 11/28/19 11:35: Sodium Level 145, Potassium Level 3.6, Chloride Level 106, Carbon Dioxide Level 33H, Anion Gap 6, Blood Urea Nitrogen 18, Creatinine 1.2, Estimat Glomerular Filtration Rate > 60, Glucose Level 99, Calcium Level 8.8, Total Bilirubin 0.9, Aspartate Amino Transf (AST/SGOT) 27, Alanine Aminotransferase (ALT/SGPT) 17, Alkaline Phosphatase 62, Total Protein 7.0, Albumin 3.2L, Globulin 3.8, Albumin/ Globulin Ratio 0.8L 11/29/19 05:30: White Blood Count 2.0*L, Red Blood Count 3.31L, Hemoglobin 10.5L, Hematocrit 34.8L, Mean Corpuscular Volume 105H, Mean Corpuscular Hemoglobin 31.9H, Mean Corpuscular Hemoglobin Concent 30.3L, Red Cell Distribution Width 12.7, Platelet Count 149L, Mean Platelet Volume 6.6, Neutrophils (%) (Auto) , Lymphocytes (%) (Auto) , Monocytes (%) (Auto) , Eosinophils (%) (Auto) , Basophils (%) (Auto) , Differential Total Cells Counted 100, Neutrophils % ( Manual) 30L, Lymphocytes % (Manual) 50H, Monocytes % (Manual) 14H, Eosinophils % (Manual) 6H, Basophils % (Manual) 0, Band Neutrophils 0, Platelet Estimate Adequate, Platelet Morphology Normal, Hypochromasia 1+, Sodium Level 145, Potassium Level 3.8, Chloride Level 107, Carbon Dioxide Level 33H, Anion Gap 5, Blood Urea Nitrogen 24H, Creatinine 1.2, Estimat Glomerular Filtration Rate > 60 , Glucose Level 95, Calcium Level 8.8, Anisocytosis 1+, Phosphorus Level 3.8, Magnesium Level 2.4 Current Medications Medications (Trade) Dose Ordered Sig/Javy Route PRN Reason Start Time Stop Time Status Last Admin Dose Admin Acetaminophen (Tylenol) 650 mg Q4H PRN ORAL Mild Pain (Pain Scale 1-3) 11/23/19 13:15 12/23/19 13:14 Amlodipine Besylate (Norvasc) 10 mg DAILY ORAL 11/24/19 09:00 12/24/19 08:59 11/29/19 08:36 Amoxicillin/ Clavulanate Potassium (Augmentin) 875 mg Q12HR ORAL 11/25/19 21:00 12/02/19 20:59 11/29/19 08:35 Aspirin (Ecotrin) 81 mg DAILY ORAL 11/23/19 13:30 01/07/20 13:29 11/29/19 08:36 Carvedilol (Coreg) 12.5 mg EVERY 12 HOURS ORAL 11/28/19 21:00 12/25/19 20:59 11/29/19 08:36 Ciprofloxacin (Cipro 500mg tab) 500 mg Q12HR ORAL 11/24/19 21:00 12/01/19 20:59 11/29/19 08:36 Donepezil HCl (Aricept) 5 mg BID ORAL 11/28/19 09:00 12/28/19 08:59 11/29/19 08:35 Furosemide (Lasix) 20 mg DAILY ORAL 11/25/19 09:00 12/25/19 08:59 11/29/19 08:36 Haloperidol Lactate (Haldol) 5 mg Q6H PRN IM Agitation 11/23/19 21:00 01/07/20 17:44 11/26/19 02:18 Hydralazine HCl (Apresoline) 10 mg Q4H PRN IV SBP>160 11/23/19 13:15 02/21/20 13:14 11/25/19 11:21 Lisinopril (PriniviL) 20 mg DAILY ORAL 11/28/19 12:45 12/28/19 12:44 11/29/19 08:37 Memantine (Namenda) 10 mg BID ORAL 11/28/19 09:00 12/28/19 08:59 11/29/19 08:36 Ondansetron HCl (Zofran) 4 mg Q6H PRN IVP Nausea & Vomiting 11/23/19 13:15 12/23/19 13:14 Oxybutynin Chloride (Ditropan) 5 mg BID ORAL 11/28/19 09:00 12/28/19 08:59 11/29/19 08:36 Quetiapine Fumarate (SEROqueL) 50 mg BEDTIME ORAL 11/28/19 21:00 01/12/20 20:59 11/28/19 20:32 Assessment/Plan Assessment/Plan IMPRESSION: 1. Right lung pneumonia. 2. Dementia. 3. Hypertension. DISCUSSION: Abx per ID Reviewed chest CT Has resolving pneumonia Oxygen and pulmonary hygiene Currently on RA OK to dc Priscilla Avila Omar Syed MD Nov 29, 2019 10:45
[2019-11-29] MEDS ORDERED: CIPROFLOXACIN500 M2 ORAL (11:28)
[2019-11-29] MEDS ORDERED: AMOX TR-K CLV1 EAC2 ORAL (11:29)
--- NOTE | 2019-11-29 11:48 | NUR ---
*-* DISCHARGE PLANNING *-* PATIENT HAS BEEN ACCEPTED TO: [facility] P: [phone] F: [phone] PATIENT TO BE DISCHARGE TODAY Addendum: 11/29/19 at 1158 by HITESH MERCHANT LVN AT THIS TIME CM ATTEMPTED TO CONTACT GRANDDAUGHTER BY NO ANSWER CM AND RN WILL ATTEMPT AGAIN SHORTLY Addendum: 12/07/19 at 1339 by CYN SPEARS CM *-* DICK NEUMANN STATES SHE HAS TOLD THE HOME HEALTH NOT TO COME IN BECAUSE THEY JUST POP OP WITH CALL LETTING THEM KNOW. PATIENT HAS DIMENTIAN AND THEY NEED TO CALL AHEAD AT TIME PER POA.. PT YES THEY WANT ONCE WITH COVID IS OVER. BUT SHE DOES NOT WANT THE HOME HEALTH TO COME. Addendum: 12/07/19 at 1345 by CYN SPEARS CM PER GILLES AT [facility] THE ONLY REASON THEY STOP BY WAS TO MAKE A WELLNESS CHECK PATIENT IS UNDER THEIR CARE. SHE STATES MELCHOR IS EXTREMLY RUDE WITH ALL STAFF
[2019-11-29 11:58] VITALS: BP 112/84
--- NOTE | 2019-11-29 12:00 | Cardiology Progress Note ---
Assessment/Plan Status: stable Assessment/Plan Assessment/Plan Status: stable Assessment/Plan: ASSESSMENT Fever unknown origin lung mass cardiomegaly Rule out COVID Troponin elevation PLAN: Serial EKG/Troponin Monitor on telemetry Empiric Abx Echocardiogram with normal LV function but elevated filling pressures grade 2 diastolic dysfunction and pulmonary hypertension Continue diuresis to lower LVEDP and PAP Continue Norvasc for hypertension Subjective Cardiovascular: Reports: no symptoms Respiratory: Reports: no symptoms Gastrointestinal/Abdominal: Reports: no symptoms Genitourinary: Reports: no symptoms Subjective No acute events, TTE with normal LV function and moderate TR pulmonary hypertension and elevated right sided pressures Objective Last 24 Hour Vital Signs Date Time Temp Pulse Resp B/P (MAP) Pulse Ox O2 Delivery O2 Flow Rate FiO2 11/29/19 11:58 97.7 60 18 112/84 (93) 100 11/29/19 09:00 Room Air 11/29/19 08:37 154/64 11/29/19 08:36 70 154/64 11/29/19 08:36 70 154/64 11/29/19 08:00 68 11/29/19 08:00 99.3 70 18 154/64 (94) 98 11/29/19 04:00 98.2 52 18 131/63 (85) 95 11/29/19 00:01 60 11/29/19 00:00 97.4 56 18 123/72 (89) 98 11/28/19 21:00 Room Air 11/28/19 20:34 63 142/61 11/28/19 20:00 97.7 63 18 142/61 (88) 97 11/28/19 20:00 63 11/28/19 16:00 63 11/28/19 16:00 98.9 61 18 123/61 (81) 98 11/28/19 13:00 120/75 General Appearance: no apparent distress, alert EENT: PERRL/EOMI, normal ENT inspection, pharynx normal Neck: non-tender, normal alignment, supple, normal inspection Rhythm: NSR Cardiovascular: normal peripheral pulses, normal rate, regular rhythm Respiratory/Chest: chest wall non-tender, lungs clear, normal breath sounds Abdomen: normal bowel sounds, non tender, soft Extremities: normal range of motion, non-tender, normal inspection Neurologic: manager gyn II-XII grossly normal, no motor/sensory deficits Intake and Output 11/28/19 11/29/19 19:00 07:00 Intake Total 240 ml Output Total 1200 ml Balance -960 ml Intake Oral 240 ml Output Urine Total 1200 ml # Voids 5 2 Laboratory Tests Test 11/29/19 05:30 White Blood Count 2.0 K/UL (4.8-10.8) *L Red Blood Count 3.31 M/UL (4.70-6.10) L Hemoglobin 10.5 G/DL (14.2-18.0) L Hematocrit 34.8 % (42.0-52.0) L Mean Corpuscular Volume 105 FL (80-99) H Mean Corpuscular Hemoglobin 31.9 PG (27.0-31.0) H Mean Corpuscular Hemoglobin Concent 30.3 G/DL (32.0-36.0) L Red Cell Distribution Width 12.7 % (11.6-14.8) Platelet Count 149 K/UL (150-450) L Mean Platelet Volume 6.6 FL (6.5-10.1) Neutrophils (%) (Auto) % (45.0-75.0) Lymphocytes (%) (Auto) % (20.0-45.0) Monocytes (%) (Auto) % (1.0-10.0) Eosinophils (%) (Auto) % (0.0-3.0) Basophils (%) (Auto) % (0.0-2.0) Differential Total Cells Counted 100 Neutrophils % (Manual) 30 % (45-75) L Lymphocytes % (Manual) 50 % (20-45) H Monocytes % (Manual) 14 % (1-10) H Eosinophils % (Manual) 6 % (0-3) H Basophils % (Manual) 0 % (0-2) Band Neutrophils 0 % (0-8) Platelet Estimate Adequate Platelet Morphology Normal Hypochromasia 1+ Anisocytosis 1+ Sodium Level 145 MMOL/L (136-145) Potassium Level 3.8 MMOL/L (3.5-5.1) Chloride Level 107 MMOL/L (98-107) Carbon Dioxide Level 33 MMOL/L (21-32) H Anion Gap 5 mmol/L (5-15) Blood Urea Nitrogen 24 mg/dL (7-18) H Creatinine 1.2 MG/DL (0.55-1.30) Estimat Glomerular Filtration Rate > 60 mL/min (>60) Glucose Level 95 MG/DL (74-106) Calcium Level 8.8 MG/DL (8.5-10.1) Phosphorus Level 3.8 MG/DL (2.5-4.9) Magnesium Level 2.4 MG/DL (1.8-2.4) Tenzin Mitchell MD Nov 29, 2019 12:00
--- NOTE | 2019-11-29 13:28 | NUR ---
NURSE NOTES: Attempted to call Jessica saldaña multiple times and phone call either busy or unable to reach. Will try again.
--- NOTE | 2019-11-29 14:08 | NUR ---
Attempted to call Granddaughter, Jessica Gilbert ; line constantly busy. will try to check if other family contact is available.
--- NOTE | 2019-11-29 16:00 | NUR ---
NURSE NOTES: Patient is discharged per Dr. Mcintyre order to go home with home health. Discharged instructions and prescriptions reviewed with patient and granddaughter Jessica. Granddaughter aware to pick-up new prescriptions for pt. at [facility]. Due to pt. mental condition, pt. unable to sign paperwork. IV, ID band, and cardiac box monitor removed. Pt. belongings with pt. at discharge. Pt. is stable, ambulate assist, off the floor with RN assistance via wheelchair at 1600.
--- NOTE | 2019-11-29 19:04 | Internal Med Progress Note ---
Subjective Date of Service: Nov 29, 2019 Physician Name Preeti Alfaro Attending Physician Preeti Alfaro MD Allergies: Coded Allergies: No Known Allergies (Unverified , 01/10/13) ROS Limited/Unobtainable: Yes HEENT: Reports: no symptoms Cardiovascular: Reports: no symptoms Respiratory: Reports: cough Gastrointestinal/Abdominal: Reports: no symptoms Genitourinary: Reports: no symptoms Neurologic/Psychiatric: Reports: anxiety All Systems: reviewed and negative except above Subjective seen eariler today feels better agrees with dc home today Objective Last Vital Signs Date Time Temp Pulse Resp B/P (MAP) Pulse Ox O2 Delivery O2 Flow Rate FiO2 11/29/19 12:00 58 11/29/19 11:58 97.7 18 112/84 (93) 100 11/29/19 09:00 Room Air General Appearance: no apparent distress Neck: supple Cardiovascular: normal rate, regular rhythm Respiratory/Chest: lungs clear Abdomen: normal bowel sounds, non tender, soft Genitourinary/Rectal: normal genital exam Neurologic: responsive, disoriented Skin: warm/dry Laboratory Tests Test 11/29/19 05:30 White Blood Count 2.0 K/UL (4.8-10.8) *L Red Blood Count 3.31 M/UL (4.70-6.10) L Hemoglobin 10.5 G/DL (14.2-18.0) L Hematocrit 34.8 % (42.0-52.0) L Mean Corpuscular Volume 105 FL (80-99) H Mean Corpuscular Hemoglobin 31.9 PG (27.0-31.0) H Mean Corpuscular Hemoglobin Concent 30.3 G/DL (32.0-36.0) L Red Cell Distribution Width 12.7 % (11.6-14.8) Platelet Count 149 K/UL (150-450) L Mean Platelet Volume 6.6 FL (6.5-10.1) Neutrophils (%) (Auto) % (45.0-75.0) Lymphocytes (%) (Auto) % (20.0-45.0) Monocytes (%) (Auto) % (1.0-10.0) Eosinophils (%) (Auto) % (0.0-3.0) Basophils (%) (Auto) % (0.0-2.0) Differential Total Cells Counted 100 Neutrophils % (Manual) 30 % (45-75) L Lymphocytes % (Manual) 50 % (20-45) H Monocytes % (Manual) 14 % (1-10) H Eosinophils % (Manual) 6 % (0-3) H Basophils % (Manual) 0 % (0-2) Band Neutrophils 0 % (0-8) Platelet Estimate Adequate Platelet Morphology Normal Hypochromasia 1+ Anisocytosis 1+ Sodium Level 145 MMOL/L (136-145) Potassium Level 3.8 MMOL/L (3.5-5.1) Chloride Level 107 MMOL/L (98-107) Carbon Dioxide Level 33 MMOL/L (21-32) H Anion Gap 5 mmol/L (5-15) Blood Urea Nitrogen 24 mg/dL (7-18) H Creatinine 1.2 MG/DL (0.55-1.30) Estimat Glomerular Filtration Rate > 60 mL/min (>60) Glucose Level 95 MG/DL (74-106) Calcium Level 8.8 MG/DL (8.5-10.1) Phosphorus Level 3.8 MG/DL (2.5-4.9) Magnesium Level 2.4 MG/DL (1.8-2.4) Intake and Output 11/28/19 11/29/19 19:00 07:00 Intake Total 240 ml Output Total 1200 ml Balance -960 ml Intake Oral 240 ml Output Urine Total 1200 ml # Voids 5 2 Assessment/Plan Status: doing well, stable, tolerating diet Assessment/Plan IMPRESSION: FEVER right lung pneumonia HTN SIRS elevated pro BNP rule out CHF elevated troponin pancytopenia dementia with psychotic behavior PLAN: dc home w HH today add lisinopril 20 mg po daily TTE reviewed ruled out covid-[address] wo contrast noted lasix PO abx refuses IV abx electrolyte replete as needed asa BP control DC planning home PREETI ALFARO MD INTERNAL MEDICINE [phone] TIME OF NOTE MAY NOT BE THE ACTUAL ENCOUNTER TIME FULL CODE TIME SPENT TODAY over 35 MINUTES Preeti Alfaro MD Nov 29, 2019 19:04
--- NOTE | 2019-11-29 22:22 | Psych Consult Progress Note ---
Psychiatry Progress Note Psychiatry Progress Note Neurological/Psychiatric: Reports: anxiety, depressed, emotional problems Allergies: Coded Allergies: No Known Allergies (Unverified , 01/10/13) Objective Data Height (Feet): 6 Height (Inches): 2.00 Weight (Pounds): 174 Additional Comments: alert, disoriented. Mood is neutral, episodes of agitation. Affect is flat. Thought processes, there is a paucity of thought content. Thought content, no suicidal or homicidal ideation. Cognition is impaired. Insight and judgment is impaired. Assessment/Plan Status: doing well, stable, tolerating diet Assessment/Plan: Dementia with behavior disturbance. PLAN: 1. Haldol 5 mg every 6 hours p.r.n. 2. Seroquel 25 mg p.o. at bedtime. 3. Patient was seen in the presence of the nurse. Mil Mayo MD Nov 29, 2019 22:21
--- NOTE | 2019-11-30 09:09 | Discharge Summary ---
Discharge Summary Discharge Summary _ DATE OF ADMISSION: 11/22/2019 DATE OF DISCHARGE: 11/29/2019 DISCHARGED BY: Dr. Armando REASON FOR ADMISSION: 89 years old male with past medical history of hypertension, HLD, myelodysplastic syndrome, dementia, was brought by paramedics due to reported fever. Patient by himself had significant dementia and was unable to provide information. Apparently per family members patient had documented fever. Patient subsequently was sent for evaluation. Upon evaluation patient had fever of 100.9 , was tachycardic with heart rate 108 , blood pressure was 160/80. Pulse oximetry was stable on room air. Laboratory work-up revealed leukopenia with WBC 3, hemoglobin 11, hematocrit 36.9 platelet count is 106. Stable electrolytes and renal parameters. Glucose 110. Lactic acid 1.4. Troponin 0 0.091. ProBNP 22625. D-dimer 10.82. Urinalysis revealed +2 protein,no evidence of urinary tract infection. Chest x-ray demonstrated right midlung focal infiltrate versus mass. Mild cardiomegaly. In the emergency department patient pancultured, swabbed for COVID-19, received IV fluids bolus and admitted to telemetry floor for further management. CONSULTANTS: fur blowing machine attendant Dr. Mitchell pulmonary Dr. Patterson ID specialist Dr. Fagan chopper feeder Dr. Mcintyre psychiatrist [facility] COURSE: Patient admitted to telemetry floor. SARS COV 2 on 11/21 and 11/22 was not detected. Antibiotic provided as per ID recommendation. Patient declined IV antibiotic and was on Augmentin and ciprofloxacin. Blood cultures were negative. Highest fever 102- resolved in few days with treatment. Patient will need to continue antibiotic upon discharge to complete the course as per ID specialist recommendation. Supplemental oxygen provided and titrated to keep pulse oximetry above 92%. Pulse oximetry remained stable on room air. Pulmonary toilet provided. Patient was follow-up with a chest x-ray. CT of the chest demonstrated 7 mm subpleural nodule in the right lower lobe , postinflammatory versus neoplastic. Recommended short interval follow-up in 12 months. COPD changes. Evidence of old granulomatous disease within the left lower lobe and liver. Cluster of irregular dense opacity in the posterior inferior right upper lobe, surrounded by a large area of groundglass opacity. Finding possibly representing area of organizing pneumonia. Finding could also represent postinflammatory changes. Neoplasm as etiology of any of the solid opacity excludable. Aspiration precaution maintained. Swallow evaluation was completed. Diet texture provided as per speech therapist recommendation with aspiration precautions. Counts were closely monitored. Platelet count stable , WBC down to 2.0. Patient will need to follow-up with his environmental sampler as outpatient. Home medication continued. Antihypertensive medication regimen was optimized. Troponin minimally elevated with highest troponin 0.152. EKG revealed no acute ischemic changes. Pattern of troponin elevation was not consistent with acute SC. Patient was on diuretic. Volumes were closely monitored. ECHO revealed normal ejection fraction , but elevated filling pressures, grade 2 diastolic dysfunction and pulmonary hypertension. Diuresis was continued to lower LVEDP and PAP. Nephrotoxic's were avoided. Electrolytes were repleted. Psychiatric medication regimen was optimized. Patient clinically stabilized and was ready for discharge home with home health services. FINAL DIAGNOSES: Sepsis Right lung pneumonia Possible lung mass Cardiomegaly Troponin elevation Hypertension Hyperlipidemia CHF Myelodysplastic syndrome Pancytopenia Dementia with behavioral disturbances Suspected COVID-19 -ruled out DISCHARGE MEDICATIONS: See Medication Reconciliation list. DISCHARGE INSTRUCTIONS: Patient was discharged home with home health services. Follow up with primary care provider in one week. Follow up with environmental sampler. Follow up with CT scan in 6-12 months I have been assigned to dictate discharge summary for this account. I was not involved in the patient's management. Mariana Katz NP Nov 30, 2019 09:09
== END 2019-11-29 16:43 | disposition home health service (06) | DRG 871 ==
LOC: EDBD 16:42 → EDBEDREQ 17:39 → EMR 17:57 → UNDOADMIN 18:07 → 4E 18:07 → 2E 18:07 → EDBEDREQ 18:11 → EDBEDREQSVC 18:16 → EDBEDREQ 18:17 → 2E 23:12
DX: A41.9 Sepsis, unspecified organism (principal); J18.9 Pneumonia, unspecified organism; D61.818 Other pancytopenia; F03.91 Unspecified dementia, unspecified severity, with behavioral disturbance; I10 Essential (primary) hypertension; E11.9 Type 2 diabetes mellitus without complications; E78.5 Hyperlipidemia, unspecified; D46.9 Myelodysplastic syndrome, unspecified; I27.20 Pulmonary hypertension, unspecified
CPT/HCPCS: 36415; 71045; 71250; 80048; 80053; 81003; 82248; 82306; 82550; 82553; 82607; 82728; 82962; 83605; 83615; 83690; 83735; 83880; 84075; 84100; 84484; 85007; 85025; 85379; 86140; 87040; 92610; 93005; 93306; 96361; 96365; 96375; 99285; J7030; J8499

== ENCOUNTER 2020-01-14 22:43 | Emergency (ER) | payer MEDICARE ==
[~2020-01-14] VITALS: Ht 182.9 cm; Wt 68.9 kg
[~2020-01-14 22:43] MED LIST changes: +AMOX TR-K CLV1 EAC2 ORAL; +CIPROFLOXACIN500 M2 ORAL
--- NOTE | 2020-01-14 23:00 | Emergency Room Report ---
History of Present Illness General Chief Complaint: Edema Source: Patient, Family Member Present Illness HPI This is an 89-year-old male with history of high blood pressure and diabetes. He also history of dementia. He presents with chief complaint of left foot swelling. He said is been ongoing for 2 to 3 days. Daughter said is been 1 day. Patient is a poor historian because of dementia. He denies any trauma. Still walking on it. Limping. No fever chills pain or shortness of breath. Nothing made it better. Walking makes it worse. Allergies: Coded Allergies: No Known Allergies (Unverified , 01/10/13) COVID-19 Screening Contact w/high risk pt: No Recent Travel to affected area: No Experienced COVID-19 symptoms?: No COVID-19 Testing performed BEAD MAKER: No COVID-19 Screening: Negative COVID-19 COVID-19 Testing Source: 1 month ago Patient History Past Medical History: see triage record, old chart reviewed, DM, dementia Past Surgical History: other Pertinent Family History: none Social History: Denies: smoking Immunizations: other Reviewed Nursing Documentation: PMH: Agreed; PSxH: Agreed Nursing Documentation-PMH Hx Hypertension: Yes Hx Diabetes: Yes Hx Cancer: No Hx Gastrointestinal Problems: No Hx Neurological Problems: Yes - dementia Review of Systems Eye: Denies: eye pain, blurred vision ENT: Denies: ear pain, nose congestion, throat swelling Respiratory: Denies: cough, shortness of breath Cardiovascular: Denies: chest pain, palpitations Gastrointestinal: Denies: abdominal pain, diarrhea, nausea, vomiting Musculoskeletal: Reports: joint swelling; Denies: back pain, joint pain Skin: Denies: rash Neurological: Denies: headache, numbness Endocrine: Denies: increased thirst, increased urine Hematologic/Lymphatic: Denies: easy bruising All Other Systems: negative except mentioned in HPI Physical Exam Vital Signs Date Time Temp Pulse Resp B/P (MAP) Pulse Ox O2 Delivery O2 Flow Rate FiO2 01/14/20 22:48 98.4 67 18 181/78 (112) 98 Room Air Vitals with high blood pressure Sp02 EP Interpretation: reviewed, normal General Appearance: well appearing, no apparent distress, alert Head: normocephalic, atraumatic Eyes: bilateral eye PERRL, bilateral eye EOMI ENT: hearing grossly normal, normal pharynx Neck: full range of motion, supple, no meningismus Respiratory: chest non-tender, lungs clear, normal breath sounds Cardiovascular #1: regular rate, rhythm, no murmur Gastrointestinal: normal bowel sounds, non tender, no mass, no organomegaly, no bruit, non-distended Musculoskeletal: back normal, normal range of motion, gait/station normal, other - Left lower extremity: There is 2+ pitting edema to the foot and ankle area. Nontender. Psychiatric: mood/affect normal Medical Decision Making Diagnostic Impression: Primary Impression: Peripheral edema Additional Impressions: Anemia Qualified Codes: D64.9 - Anemia, unspecified Hypertension, essential ER Course Presents with left lower extremity edema. Unknown trauma. Per granddaughter, patient was on Lasix before but was taken off by his primary care doctor. He showed no evidence of CHF. Lungs are clear. Oxygenation on percent. His BNP is elevated but lower than what is normally. Other X-Ray Diagnostic Results Other X-Ray Diagnostic Results #1: X-Ray ordered: Foot x-rays, left # of Views/Limited Vs Complete: 3 View Indication: Pain EP Interpretation: Yes Interpretation: no dislocation, no soft tissue swelling, no fractures Impression: No acute disease Electronically Signed by: Dash Aceves MD Other X-Ray Diagnostic Results #2: X-Ray ordered: Left ankle x-rays # of Views/Limited Vs Complete: 3 View Indication: Pain EP Interpretation: Yes Interpretation: no dislocation, no soft tissue swelling, no fractures Impression: No acute disease Electronically Signed by: Dash Aceves MD CT/MRI/US Diagnostic Results CT/MRI/US Diagnostic Results : Imaging Test Ordered: Left lower extremity ultrasound Impression Negative for DVT per radiologist Last Vital Signs Date Time Temp Pulse Resp B/P (MAP) Pulse Ox O2 Delivery O2 Flow Rate FiO2 01/14/20 22:48 98.4 67 18 181/78 (112) 98 Room Air Status: improved Disposition: HOME, SELF-CARE Condition: Stable Scripts Furosemide* (LASIX*) 20 Mg Tablet 20 MG ORAL DAILY, #30 TAB Prov: Dash Aceves MD 01/15/20 Patient Instructions: Peripheral Edema Additional Instructions: Elevate leg. Follow-up with your doctor in 7 days. Return if worse. Dash Aceves MD Jan 14, 2020 23:00
--- NOTE | 2020-01-14 23:00 | NUR ---
ED Nurse Note: ambulated to ed c/o lower left extremity edema and pain x1 day. history of chf without prescribed diurectics. patient ambulates with steady gait. changed into gown; attached to monitor; hypertensive; otherwise vitals within normal limits. pt ao2 with episodes of confusion; history of dementia. all safety measures met. will continue to monitor.
--- NOTE | 2020-01-14 23:25 | NUR ---
ED Nurse Note: IV access established. blood collected; sent down to lab.
--- NOTE | 2020-01-14 23:45 | NUR ---
ED Nurse Note: US completed at bedside. dialysis technician at bedside for imaging.
[2020-01-14 23:46] VITALS: BP 180/68
[2020-01-14 23:49] LABS: ANION GAP 3 mmol/L (5-15); BLOOD UREA NITROGEN 16 mg/dL (7-18); CALCIUM 8.7 MG/DL (8.5-10.1); CARBON DIOXIDE 30 MMOL/L (21-32); CHLORIDE 105 MMOL/L (98-107); CREATININE 1.1 MG/DL (0.55-1.30); HEMATOCRIT 25.5 % (42.0-52.0); HEMOGLOBIN 8.4 G/DL (14.2-18.0); MEAN CORPUSCULAR VOLUME 102 FL (80-99); PLATELET COUNT 136 K/UL (150-450); POTASSIUM 4.5 MMOL/L (3.5-5.1); RED BLOOD COUNT 2.51 M/UL (4.70-6.10); RED CELL DISTRIBUTION WIDTH 13.2 % (11.6-14.8); SODIUM 138 MMOL/L (136-145)
--- NOTE | 2020-01-15 00:14 | Diagnostic Imaging Report ---
EXAM: US Duplex Left Lower Extremity Veins CLINICAL HISTORY: ERIKALL TECHNIQUE: Real-time duplex ultrasound scan of the left lower extremity veins integrating B-mode two-dimensional vascular structure, Doppler spectral analysis, color flow Doppler imaging and compression. COMPARISON: No relevant prior studies available. FINDINGS: Deep veins: Unremarkable. No DVT in the visualized common femoral, femoral, proximal deep femoral or popliteal veins. The veins demonstrate normal color flow, are normally compressible, with normal phasic flow and/or augmentation response. Superficial veins: Unremarkable. No thrombus in the visualized great saphenous vein. Soft tissues: No acute findings. No popliteal cyst. IMPRESSION: Normal left lower extremity duplex venous ultrasound.
[2020-01-15 00:20] VITALS: BP 155/67
[2020-01-15] MEDS ORDERED: FUROSEMIDE20 M1 ORAL (00:32)
--- NOTE | 2020-01-15 00:34 | Diagnostic Imaging Report ---
EXAM: XR Left Foot Complete, 3 or More Views CLINICAL HISTORY: PAIN TECHNIQUE: Frontal, lateral and oblique views of the left foot. COMPARISON: No relevant prior studies available. FINDINGS/IMPRESSION: No acute fracture or dislocation. The first metatarsophalangeal joint is intact. No Lisfranc malalignment. The base of the fifth metatarsal is normal. Vascular calcifications, incidentally noted. Diffuse osseous demineralization.
--- NOTE | 2020-01-15 00:34 | Diagnostic Imaging Report ---
EXAM: XR Left Ankle Complete, 3 or More Views CLINICAL HISTORY: PAIN TECHNIQUE: Frontal, lateral and oblique views of the left ankle. COMPARISON: No relevant prior studies available. FINDINGS/IMPRESSION: No acute fracture or dislocation. The ankle mortise is symmetric. Generalized, moderate soft tissue swelling. Diffuse osseous demineralization. Vascular calcifications, incidentally noted.
[2020-01-15 00:39] VITALS: BP 155/67
--- NOTE | 2020-01-15 00:39 | NUR ---
ER DISCHARGE NOTE: Patient is cleared to be discharged per ERMD, pt is aox4, on room air, with stable vital signs. pt was given dc and prescription instructions, pt was able to verbalize understanding, pt id band and iv site removed without complications. pt is able to ambulate with steady gait. pt took all belongings. picked up by family member.
== END 2020-01-15 00:40 | disposition home or self-care (01) ==
LOC: EMR 23:03
DX: R60.0 Localized edema (principal); D64.9 Anemia, unspecified; I10 Essential (primary) hypertension; E11.9 Type 2 diabetes mellitus without complications; F03.90 Unspecified dementia, unspecified severity, without behavioral disturbance, psychotic disturbance, mood disturbance, and anxiety; M25.572 Pain in left ankle and joints of left foot
CPT/HCPCS: 36415; 73610; 73630; 80048; 83880; 84484; 85007; 85025; 93971; 96374; 99284; J0360